=== PATIENT | female | born 1985 | race African-American/Black ===

== ENCOUNTER 2017-08-07 08:42 | Outpatient (CLI) | payer OTHER ==
[2017-08-07] MEDS ORDERED: ONDANSETRON 4 MG/2 ML VIAL IVP STA (09:15)
[2017-08-07] MEDS ORDERED: LACTATED RINGERS 1,000 ML IV SCH (09:15)
[2017-08-07 09:33] LABS: Appearance,Urine Cloudy (Clear); Bilirubin,Urine Negative (Negative); Blood,Urine Negative (Negative); Color,Urine Yellow; Glucose,Urine (UA) Negative (Negative); Hyaline Casts,Urine 5 /lpf (0-2); Ketones,Urine Negative (Negative); Leukocyte Esterase,Urine Negative (Negative); Mucus,Urine Moderate /hpf; Nitrite,Urine Negative (Negative); PH, Urine 5.5 (5.0-8.0); Protein,Urine Trace (Negative); Specific Gravity,Urine 1.022 (1.001-1.035); Squamous Epithelial Cell,Urine 2 /hpf (0-4); Urobilinogen,Urine <2.0 mg/dL (<2.0); WBC,Urine 7 /hpf (0-5)
[2017-08-07 09:47] VITALS: BP 122/70; PULSE 94; RESP 16; TEMP 98.7
--- NOTE | 2017-08-08 22:23 | P.MSEPDOC ---
Presenting Problems - Arrival Data Date of Arrival on Unit: 08/07/17 Time of Arrival on Unit: 08:45 Mode of Transport: Wheelchair - Complaint OB-Reason for Admission/Chief Complaint: Acute Nausea/Vomiting Medical History - Information : 4 Para: 3 Term: 3 : 0 Abortions: Spontaneous or Elective: 0 Number of Living Children: 3 - Gestational Age Gestational Age by EROS (wks/days): 19 Weeks and 6 Days - History Complications: Prior Review of Systems - Review of Systems Constitutional: No problems Breast: No problems ENT: Nasal congestion Respiratory: No problems Gastrointestinal: Constipation Genitourinary: No problems Musculoskeletal: No problems Neurological: No problems Skin: No problems Comment: Born with a heart mumur Vital Signs - Temperature Temperature: 98.7 F Temperature Source: Oral - Pulse Pulse Oximetery Pulse Rate: 94 Pulse Assessment Method: Automatic Cuff - Respirations Respiratory Rate: 16 Oxygen Delivery Method: Room Air - Blood Pressure Right Arm Blood Pressure: 122/70 Blood Pressure Mean: 87 Blood Pressure Source: Automatic Cuff Medical Screen Scoring (Pre) - Cervical Exam Dilation: Exam Deferred Effacement: Exam Deferred - Uterine Contractions Frequency: N/A Duration: N/A Intensity: N/A - Maternal Vital Signs Maternal Temperature: N/A Maternal Blood Pressure: N/A Signs of Preeclampsia: N/A Maternal Respirations: N/A - Pain Assessment Pain Location and Character: Abdomen Pain Scale Used: Numeric (1 - 10) Pain Intensity: 4 Pain Management Goal: 0 Pain Description: *Acute, Cramping Pain Radiation Location: none Pain Frequency: Intermittent Pain Duration: 1 Pain Duration Units: Days Pain Behavior: None Exhibited, Vocalization Pain Aggravating Factors: None - Maternal Trauma Maternal Trauma: N/A - Total Score Total Score (Pre): 0 - Level of Risk Level of Risk: Low (0-5) Physician Notification (Pre) - Physician Notified Physician Notified Date: 08/07/17 Physician Notified Time: 09:13 Physician/Practitioner Notifed:: Dr Qiu New Order Received: Yes - Notification Comment Comment: IV hydration, UA, Zofran Disposition - Disposition OB Disposition: Discharge to home Discharge Date: 08/07/17 Discharge Time: 10:16 I agree with the RN Medical Screening Exam: Yes Risk & Benefit of care provided described in d/c instruction: Yes Diagnosis: DEHYDRATION
== END 2017-08-07 10:30 | disposition home or self-care (01) ==
LOC: FBPOP 08:42
PROVIDERS: ATTEND Obstetrics & Gynecology
DX: O26.892 Other specified pregnancy related conditions, second trimester (principal); E86.0 Dehydration; Z3A.19 19 weeks gestation of pregnancy
CPT/HCPCS: 96361; 96365; 81001; J2405; G0463; 99214

== ENCOUNTER 2017-09-08 13:35 | Outpatient (CLI) | payer OTHER ==
[2017-09-08 14:31] LABS: Appearance,Urine Clear (Clear); Bilirubin,Urine Negative (Negative); Blood,Urine Negative (Negative); Color,Urine Light Yellow; Glucose,Urine (UA) Negative (Negative); Ketones,Urine Negative (Negative); Leukocyte Esterase,Urine Small (Negative); Nitrite,Urine Negative (Negative); PH, Urine 7.5 (5.0-8.0); Protein,Urine Negative (Negative); RBC,Urine <1 /hpf (0-5); Specific Gravity,Urine 1.012 (1.001-1.035); Squamous Epithelial Cell,Urine <1 /hpf (0-4); Urobilinogen,Urine <2.0 mg/dL (<2.0); WBC,Urine <1 /hpf (0-5)
[2017-09-08 19:20] VITALS: BP 133/79; PULSE 81; RESP 20; TEMP 98.4
--- NOTE | 2017-09-09 08:30 | P.MSEPDOC ---
Presenting Problems - Arrival Data Date of Arrival on Unit: 09/08/17 Time of Arrival on Unit: 13:40 Mode of Transport: Wheelchair - Complaint OB-Reason for Admission/Chief Complaint: Possible Onset of Labor, Pain Comment: pt reports cramping/contractions that began 2 hours ago. rates 10/10. also states she has had leaking/discharge, vaginal pressure. Medical History - Information : 4 Para: 3 Term: 3 : 0 Abortions: Spontaneous or Elective: 0 Number of Living Children: 3 - Gestational Age Gestational Age by EROS (wks/days): 24 Weeks and 3 Days - History Complications: Prior Review of Systems - Review of Systems Constitutional: No problems Breast: No problems ENT: No problems Cardiovascular: No problems Respiratory: No problems Gastrointestinal: No problems Genitourinary: Dysuria Musculoskeletal: No problems Neurological: No problems Skin: No problems Vital Signs - Temperature Temperature: 98.4 F Temperature Source: Oral - Pulse Right Brachial Pulse Rate: 81 Pulse Assessment Method: Automatic Cuff - Respirations Respiratory Rate: 20 Oxygen Delivery Method: Room Air O2 Sat by Pulse Oximetry: 99 - Blood Pressure Right Arm Blood Pressure: 133/79 Blood Pressure Mean: 97 Blood Pressure Source: Automatic Cuff Medical Screen Scoring (Pre) - Cervical Exam Dilation: 0 cm = 0 Membranes: Intact - Uterine Contractions Frequency: N/A - Maternal Vital Signs Maternal Temperature: N/A Maternal Blood Pressure: N/A Signs of Preeclampsia: N/A Maternal Respirations: N/A - Pain Assessment Pain Location and Character: Abdomen Pain Scale Used: Numeric (1 - 10) Pain Intensity: 10 Pain Management Goal: 2 Pain Description: *Acute, Cramping Pain Radiation Location: none Pain Frequency: Intermittent Pain Duration: 2 Pain Duration Units: Hours Pain Behavior: Vocalization Effects of Pain: none Pain Aggravating Factors: None Pharmacological Interventions: Discuss Pain Med Options Non-Pharmacological Interventions: Reduce Environmental Stimuli - Maternal Trauma Maternal Trauma: N/A - Assessment Baseline FHR: 140 Heart Rate - NICHD Category: Category I (Normal) = 0 Position: N/A Station: N/A - Total Score Total Score (Pre): 0 - Level of Risk Level of Risk: Low (0-5) Physician Notification (Pre) - Physician Notified Spoke With: isabel Nichols Order Received: Yes - Notification Comment Comment: discharge home. to keep next sched appt. tylenol for pain. increase fluids. watch diet for diarrhea symptoms Medical Screen Scoring (Post) - Cervical Exam Dilation: 0 cm = 0 Effacement: More than 50% = 2 Membranes: Intact - Uterine Contractions Frequency: N/A - Maternal Vital Signs Maternal Temperature: N/A Signs of Preeclampsia: N/A Maternal Respirations: N/A - Pain Assessment Pain Location and Character: Lower, Abdomen, Buttock Pain Scale Used: Numeric (1 - 10) Pain Description: *Acute Pain Frequency: Intermittent Pain Duration Units: unable to determine but states frequently Pain Behavior: Anxious, Crying Pain Aggravating Factors: Activity Non-Pharmacological Interventions: Darkened Room, Position/Reposition FLACC Face: Occassnl Grimac/Frown = 1 FLACC Legs: Relaxed = 0 FLACC Activity: Lying Quietly = 0 FLACC Cry: Moans or Whimpers = 1 FLACC Consolability: Reassured by Touch = 1 FLACC Pain Score: 3 - Maternal Trauma Maternal Trauma: N/A - Assessment Heart Rate: 145 Heart Rate - NICHD Category: Category I (Normal) = 0 Position: N/A - Total Score Total Score (Post): 2 - Post Treatment Level of Risk Post Treatment Level of Risk: Low (0-5) Physician Notification (Post) - Physician Notified Physician Notified Date: 09/08/17 Physician Notified Time: 15:35 Physician/Practitioner Notified:: isabel Nichols Order Received: Yes - Notification Comment Comment: discharge Disposition - Disposition OB Disposition: Discharge to home Discharge Date: 09/08/17 Discharge Time: 15:55 I agree with the RN Medical Screening Exam: Yes Risk & Benefit of care provided described in d/c instruction: Yes Diagnosis: FALSE LABOR BEFORE 37 COMPLETED WEEKS OF GEST, SECOND TRI
== END 2017-09-08 15:59 | disposition home or self-care (01) ==
LOC: FBPOP 13:35
PROVIDERS: ATTEND Obstetrics & Gynecology
DX: O47.02 False labor before 37 completed weeks of gestation, second trimester (principal); Z3A.24 24 weeks gestation of pregnancy
CPT/HCPCS: 82731; 81001; G0463; 99213

== ENCOUNTER 2017-09-16 12:04 | Outpatient (CLI) | payer OTHER ==
[2017-09-16 12:15] VITALS: BP 138/76; TEMP 97.9
[2017-09-16 12:52] VITALS: PULSE 80; RESP 17
--- NOTE | 2017-09-19 08:25 | P.MSEPDOC ---
Presenting Problems - Arrival Data Date of Arrival on Unit: 09/16/17 Time of Arrival on Unit: 12:04 Mode of Transport: Wheelchair - Complaint OB-Reason for Admission/Chief Complaint: Pain Comment: pt moved crib and injured right upper to mid back, rates pain 10/10, pt felt a "pop" when incident occured, pt denies lof/vb/contractions, pt denies hitting abd and reports + fm Medical History - Information : 4 Para: 3 Term: 3 : 0 Abortions: Spontaneous or Elective: 0 Number of Living Children: 3 - Gestational Age Gestational Age by EROS (wks/days): 25 Weeks and 4 Days Review of Systems - Review of Systems Constitutional: No problems Breast: No problems ENT: No problems Cardiovascular: No problems Respiratory: No problems Gastrointestinal: No problems Genitourinary: No problems Musculoskeletal: No problems Neurological: No problems Skin: No problems Vital Signs - Temperature Temperature: 97.9 F Temperature Source: Oral - Pulse Right Brachial Pulse Rate: 80 Pulse Assessment Method: Automatic Cuff - Respirations Respiratory Rate: 17 Oxygen Delivery Method: Room Air O2 Sat by Pulse Oximetry: 99 - Blood Pressure Right Arm Blood Pressure: 138/76 Blood Pressure Mean: 96 Blood Pressure Source: Automatic Cuff Medical Screen Scoring (Pre) - Cervical Exam Dilation: Exam Deferred Effacement: Exam Deferred Membranes: Intact - Uterine Contractions Frequency: N/A Duration: N/A Intensity: N/A - Maternal Vital Signs Maternal Temperature: N/A Maternal Blood Pressure: N/A Signs of Preeclampsia: N/A Maternal Respirations: N/A - Pain Assessment Pain Location and Character: Right, Upper, Back Pain Scale Used: Numeric (1 - 10) Pain Intensity: 10 Pain Management Goal: 2 Pain Description: *Acute, Aching, Tightness Pain Radiation Location: none Pain Frequency: Intermittent Pain Duration: 30 Pain Duration Units: Minutes Pain Behavior: Decreased Activity, Facial Grimacing, Guarding Pain Aggravating Factors: Activity - Maternal Trauma Maternal Trauma: N/A - Assessment Baseline FHR: 150 Position: N/A Station: N/A - Total Score Total Score (Pre): 0 - Level of Risk Level of Risk: Low (0-5) Physician Notification (Pre) - Physician Notified Physician Notified Date: 09/16/17 Physician Notified Time: 12:40 Physician/Practitioner Notifed:: Dr Lemus Spoke With: Dr Lemus New Order Received: Yes (dc to ER) - Notification Comment Comment: pt was dcd from [facility] and transferred via wheelchair to er for assessment of back injury Disposition - Disposition Discharge Date: 09/16/17 Discharge Time: 12:40 I agree with the RN Medical Screening Exam: Yes Risk & Benefit of care provided described in d/c instruction: Yes Diagnosis: INJ MUSCLE, FASCIA AND TENDON OF LOWER BACK, INIT ENCNTR
== END 2017-09-16 12:40 | disposition home or self-care (01) ==
LOC: FBPOP 12:04
PROVIDERS: ATTEND Obstetrics & Gynecology
DX: S39.002A Unspecified injury of muscle, fascia and tendon of lower back, initial encounter (principal); X50.0XXA Overexertion from strenuous movement or load, initial encounter; Y92.009 Unspecified place in unspecified non-institutional (private) residence as the place of occurrence of the external cause; Z33.1 Pregnant state, incidental; Z3A.25 25 weeks gestation of pregnancy
CPT/HCPCS: 99213

== ENCOUNTER 2017-09-16 12:41 | Emergency (ER) | payer OTHER ==
[2017-09-16 13:02] VITALS: BP 114/74; PULSE 77; RESP 16; TEMP 98
[2017-09-16] MEDS ORDERED: ACETAMINOPHEN TAB 500 MG TAB PO STA (13:31)
--- NOTE | 2017-09-16 13:34 | ED ---
Back Pain HPI - General Chief Complaint: Back Pain/Injury Stated Complaint: back pain,preg cleared Time Seen by Provider: 09/16/17 13:15 Source: patient, RN notes reviewed, old records reviewed Limitations: no limitations - History of Present Illness Initial Comments: Patient is a 32-year-old female currently 25 weeks presents emergency department today with right-sided rib pain after pulling her crib. Patient reports that she pulled a crib and felt a pop. Patient states that she now has pain with range of motion with her right side. Patient states she has no spinal pain. Patient states that she is no difficulty with breathing. She was seen at the [facility] floor and cleared. Patient states she has no abdominal pain. Pain is worse with range of motion of the shoulder. She is on any Tylenol. She states that she'll call first thing about calling EMS for transport because she had a hard time moving. Is her fourth . Her OB /HIGH SPEED PRINTER OPERATOR is Dr. Moctezuma. - Related Data Home Medications Medication Instructions Recorded Confirmed Pnv No.95/Ferrous Fum/Folic AC 1 tab PO DAILY 09/16/17 09/16/17 [ Multivitamin Tablet] Previous Rx's Medication Instructions Recorded Acetaminophen [Tylenol] 500 mg PO Q4-6H PRN #20 tab 09/16/17 Allergies Allergy/AdvReac Type Severity Reaction Status Date / Time No Known Allergies Allergy Verified 09/16/17 13:02 Review of Systems ROS Statement: Those systems with pertinent positive or pertinent negative responses have been documented in the HPI. ROS Other: All systems not noted in ROS Statement are negative. Past Medical History Additional Past Medical History / Comment(s): heart murmur History of Any Multi-Drug Resistant Organisms: None Reported Past Surgical History: Section Past Psychological History: Anxiety, Depression Smoking Status: Never smoker Past Alcohol Use History: None Reported Past Drug Use History: None Reported General Exam - General Exam Comments Initial Comments: this is a 32-year-old female. Alert and oriented. No significant distress. Limitations: no limitations General appearance: alert, in no apparent distress Head exam: Present: atraumatic, normocephalic, normal inspection Eye exam: Present: normal appearance, PERRL, EOMI. Absent: scleral icterus, conjunctival injection, periorbital swelling ENT exam: Present: normal exam, mucous membranes moist Neck exam: Present: normal inspection. Absent: tenderness, meningismus, lymphadenopathy Respiratory exam: Present: normal lung sounds bilaterally. Absent: respiratory distress, wheezes, rales, rhonchi, stridor Cardiovascular Exam: Present: regular rate, normal rhythm, normal heart sounds. Absent: systolic murmur, diastolic murmur, rubs, gallop, clicks GI/Abdominal exam: Present: soft, normal bowel sounds. Absent: distended, tenderness, guarding, rebound, rigid Extremities exam: Present: normal inspection, full ROM, normal capillary refill. Absent: tenderness, pedal edema, joint swelling, calf tenderness Back exam: Present: normal inspection, muscle spasm (Patient has tenderness over the right rib and paraspinal muscles.) Neurological exam: Present: alert, oriented X3, CN II-XII intact Psychiatric exam: Present: normal affect, normal mood Course Vital Signs 09/16/17 13:00 Temperature 98.0 F Pulse Rate 77 Respiratory 16 Rate Blood Pressure 114/74 O2 Sat by Pulse 100 Oximetry Medical Decision Making - Medical Decision Making this Patient is a 32-year-old female presents emergency department today with chief complaint of right-sided rib pain after moving her baby crib.. Patient states that she pulled over the right ribs and is having pain with range of motion. Patient has not any Tylenol. She was ready seen by mother-baby and clear. Patient was informed that the only medication for pain relief and states he can is Tylenol. Patient is 25 weeks . She has no difficulty with breathing. She has no pain over her spine. Patient informed likely pulled muscle. Really no concern for rib fracture or any other major trauma. Patientinformed the risk and benefit of x-ray. I discussed that exposing the babyradiation for this injury likely be necessary. Patient does agree. At this time I discussed that I'll write her Tylenol, she needs to rest and taking Patient said and warm compresses over the area. Patient agrees treatment plan will comply. Return parameters were discussed. Disposition Clinical Impression: Muscle strain of right upper back, 25 weeks gestation of Disposition: HOME SELF-CARE Condition: Good Instructions: Back Pain (ED), Muscle Strain (ED) Additional Instructions: Patient advised alternating between heat and ice over the area that is sore and tender for the next 2 days. Rest, to passive stretching. Take Tylenol for pain. Follow-up with OB or PCP. Return to emergency department if any alarming signs or symptoms occur. Prescriptions: Acetaminophen [Tylenol] 500 mg PO Q4-6H PRN #20 tab PRN Reason: Pain Is patient prescribed a controlled substance at d/c from ED?: No Referrals: None,Stated [Primary Care Provider] - 1-2 days Go Qiu DO [Doctor of Osteopathic Medicine] - 1-2 days Time of Disposition: 13:48
== END 2017-09-16 14:20 | disposition home or self-care (01) ==
LOC: EC 12:41
DX: O9A.212 Injury, poisoning and certain other consequences of external causes complicating pregnancy, second trimester (principal); S29.012A Strain of muscle and tendon of back wall of thorax, initial encounter; Z3A.25 25 weeks gestation of pregnancy; X50.9XXA Other and unspecified overexertion or strenuous movements or postures, initial encounter
CPT/HCPCS: 99283

== ENCOUNTER 2017-12-06 19:23 | Outpatient (CLI) | payer OTHER ==
[2017-12-06 19:55] LABS: Appearance,Urine Clear (Clear); Bilirubin,Urine Negative (Negative); Blood,Urine Negative (Negative); Color,Urine Yellow; Glucose,Urine (UA) Negative (Negative); Ketones,Urine Trace (Negative); Leukocyte Esterase,Urine Negative (Negative); Nitrite,Urine Negative (Negative); PH, Urine 7.5 (5.0-8.0); Protein,Urine Trace (Negative); Specific Gravity,Urine 1.015 (1.001-1.035); Urobilinogen,Urine <2.0 mg/dL (<2.0)
[2017-12-07 00:04] VITALS: BP 136/87; PULSE 96; RESP 18; TEMP 97.4
--- NOTE | 2017-12-16 10:26 | P.MSEPDOC ---
Presenting Problems - Arrival Data Date of Arrival on Unit: 12/06/17 Time of Arrival on Unit: 19:23 Mode of Transport: Wheelchair - Complaint OB-Reason for Admission/Chief Complaint: Possible Onset of Labor, Pain Comment: pt c/o contractions on more regular basis, every 10 min or so, but constant cramping and back pain Medical History - Information : 4 Para: 3 Term: 3 : 0 Abortions: Spontaneous or Elective: 0 Number of Living Children: 3 - Gestational Age Gestational Age by EROS (wks/days): 37 Weeks and 0 Days - History Complications: Prior Review of Systems - Review of Systems Constitutional: No problems Breast: No problems ENT: No problems Cardiovascular: No problems Respiratory: No problems Gastrointestinal: No problems Genitourinary: No problems Musculoskeletal: No problems Neurological: No problems Skin: No problems Vital Signs - Temperature Temperature: 97.4 F Temperature Source: Temporal Artery Scan - Pulse Right Brachial Pulse Rate: 96 - Respirations Respiratory Rate: 18 Oxygen Delivery Method: Room Air O2 Sat by Pulse Oximetry: 100 - Blood Pressure Right Arm Blood Pressure: 136/87 Blood Pressure Mean: 103 Blood Pressure Source: Automatic Cuff Medical Screen Scoring (Pre) - Cervical Exam Dilation: 0 cm = 0 Effacement: Exam Deferred Membranes: Intact - Uterine Contractions Frequency: > 5 minutes apart = 1 Duration: > 40 seconds = 2 Intensity: N/A - Maternal Vital Signs Maternal Temperature: N/A Maternal Blood Pressure: N/A Signs of Preeclampsia: N/A Maternal Respirations: N/A - Pain Assessment Pain Scale Used: Numeric (1 - 10) Pain Intensity: 10 Pain Description: *Acute, Cramping, Pressure Pain Radiation Location: back Pain Frequency: Intermittent Pain Duration: 2 Pain Duration Units: Hours Pain Behavior: Moving Slowly Pain Aggravating Factors: Activity - Maternal Trauma Maternal Trauma: N/A - Assessment Baseline FHR: 130 Heart Rate - NICHD Category: Category I (Normal) = 0 NST: Reactive Position: N/A Station: N/A - Total Score Total Score (Pre): 3 - Level of Risk Level of Risk: Low (0-5) Physician Notification (Pre) - Physician Notified Physician Notified Date: 12/06/17 Physician Notified Time: 20:05 Physician/Practitioner Notifed:: Dr. Baltazar Spoke With: Dr. Baltazar New Order Received: Yes - Notification Comment Comment: discharge pt home Disposition - Disposition OB Disposition: Triage, Discharge to home, Written follow up instructions reviewed Discharge Date: 12/06/17 Discharge Time: 20:30 I agree with the RN Medical Screening Exam: Yes Risk & Benefit of care provided described in d/c instruction: Yes Diagnosis: FALSE LABOR AT OR AFTER 37 COMPLETED WEEKS OF GESTATION
== END 2017-12-06 20:30 | disposition home or self-care (01) ==
LOC: FBPOP 19:23
PROVIDERS: ATTEND Obstetrics & Gynecology
DX: O47.1 False labor at or after 37 completed weeks of gestation (principal); Z3A.37 37 weeks gestation of pregnancy
CPT/HCPCS: 59025; 81003; G0463; 99213

== ENCOUNTER 2017-12-13 06:00 | Inpatient (IN) | payer OTHER ==
[2017-12-13] MEDS ORDERED: ceFAZolin IN SWFI 2 GM/20 ML SYRINGE IVP ONE (11:07)
[2017-12-13] MEDS ORDERED: CITRIC ACID-SODIUM CITRATE 15 ML CUP PO ONE (11:07)
[2017-12-13 11:21] VITALS: BMI 39.7
[2017-12-13] MEDS ORDERED: LACTATED RINGERS 1,000 ML IV ONE (11:30)
[2017-12-13 11:42] LABS: Basophils % (A) 0 %; Eosinophils # (A) 0.1 k/uL (0-0.7); Eosinophils % (A) 1 %; HCT 35.1 % (34.0-46.0); HGB 11.6 gm/dL (11.4-16.0); Lymphocytes # (A) 1.8 k/uL (1.0-4.8); Lymphocytes % (A) 21 %; MCH 28.9 pg (25.0-35.0); MCHC 33.1 g/dL (31.0-37.0); MCV 87.5 fL (80.0-100.0); Mean Platelet Volume 6.6; Monocytes # (A) 0.6 k/uL (0-1.0); Monocytes % (A) 6 %; Neutrophils # (A) 5.9 k/uL (1.3-7.7); Neutrophils % (A) 69 %; Platelet Count 331 k/uL (150-450); RBC 4.01 m/uL (3.80-5.40); RDW 14.2 % (11.5-15.5); WBC 8.6 k/uL (3.8-10.6)
[2017-12-13] MEDS: LACTATED RINGERS 1,000 ML IV SCH ×2 (12:00→19:31)
--- NOTE | 2017-12-13 12:13 | P.HPOB ---
History of Present Illness H&P Date: 12/13/17 Chief Complaint: 38-0/7 weeks, IUGR, borderline oligohydramnios, undesired fertility The patient is a 32-year-old 4 para 3003 admitted at 38-0/7 weeks as established by last menstrual period and confirmed by second trimester ultrasound. She is admitted with a diagnosis of intrauterine growth restriction with growth at the 8th percentile several weeks ago. testing since that time has been reassuring with normal and reactive NSTs as well as amniotic fluid indices and SD ratios. At check in the office yesterday, she was found to have an amniotic fluid index in the range of 7 cm which is borderline at best. Given her degree of discomfort and the diagnosis of IUGR as well as slightly decreased fluid, we have opted to proceed to delivery. She has a history of 3 previous sections and has requested repeat with intraoperative bilateral tubal occlusion using Filshie clips and signed consent to that effect. She therefore is admitted for repeat low transverse section with intraoperative tubal occlusion. Group B strep status is negative. Obstetrical history: 4 para 3003 with 3 previous term sections. Current statistics are listed in history of present illness. EDC of 12/27/2017 was established by last menstrual period and confirmed by ultrasound. Laboratory workup touches blood type of O+ with a negative antibody screen. Rubella status is immune. The remainder of the laboratory workup was within normal limits. One hour Glucola was normal and group B strep status is negative. Gynecologic history: Unremarkable with no history of any infections to include STDs. Review of Systems Review of systems is confined to history of present illness. Past Medical History Additional Past Medical History / Comment(s): heart murmur History of Any Multi-Drug Resistant Organisms: None Reported Past Surgical History: Section Past Anesthesia/Blood Transfusion Reactions: No Reported Reaction Past Psychological History: Anxiety, Depression Smoking Status: Never smoker Past Alcohol Use History: None Reported Past Drug Use History: None Reported Medications and Allergies Home Medications Medication Instructions Recorded Confirmed Type Acetaminophen [Tylenol] 500 mg PO Q4-6H PRN #20 tab 09/16/17 12/06/17 Rx Pnv No.95/Ferrous Fum/Folic AC 1 tab PO DAILY 09/16/17 12/06/17 History [ Multivitamin Tablet] Allergies Allergy/AdvReac Type Severity Reaction Status Date / Time No Known Allergies Allergy Verified 12/06/17 19:30 Exam Vital Signs Temp Pulse Resp BP Pulse Ox 12/13/17 11:06 98.1 F 88 18 128/73 100 Intake and Output 12/12/17 12/13/17 12/13/17 22:59 06:59 14:59 Other: Weight 108.409 kg In general, this is a well-developed, mild to moderately obese female in no acute distress. Her heart has a regular rhythm and rate without murmur. Her lungs are clear to auscultation bilaterally in all choudhary. Her abdomen is gravid, nondistended, has normal active bowel sounds, is soft, nontender, and without any palpable masses aside from uterine fundus. Her extremities are without any cyanosis, clubbing, or edema and are nontender to palpation. Digital cervical examination is deferred. Results Result Diagrams: 12/13/17 10:45 Assessment and Plan (1) Oligohydramnios Current Visit: Yes Status: Acute Code(s): O41.00X0 - OLIGOHYDRAMNIOS, UNSP TRIMESTER, NOT APPLICABLE OR UNSP SNOMED Code(s): 43538496 (2) Intrauterine growth retardation in Current Visit: Yes Status: Acute Code(s): O36.5990 - MATERN CARE FOR OTH OR SUSP POOR FETL GRTH, UNSP TRI, UNSP SNOMED Code(s): 812020733 (3) Family planning Current Visit: Yes Status: Acute Code(s): Z30.09 - ENCOUNTER FOR OTH GENERAL CNSL AND ADVICE ON CONTRACEPTION SNOMED Code(s): 716112746 (4) Previous section Current Visit: Yes Status: Acute Code(s): Z98.891 - HISTORY OF UTERINE SCAR FROM PREVIOUS SURGERY SNOMED Code(s): 027287606 (5) Term Current Visit: Yes Status: Acute Code(s): Z34.80 - ENCOUNTER FOR SUPRVSN OF NORMAL , UNSP TRIMESTER SNOMED Code(s): 42837547 Plan: The patient is admitted for repeat low transverse section with intraoperative bilateral tubal occlusion using Filshie clips. The risks and complications of these procedures have been thoroughly discussed and she has understood and agreed to proceed.
[2017-12-13] MEDS ORDERED: HYDROmorphone (PF) 1 MG/ML ONE (12:17)
[2017-12-13] MEDS ORDERED: ONDANSETRON 4 MG/2 ML VIAL ONE (12:17)
[2017-12-13] MEDS ORDERED: NALBUPHINE 10 MG/ML VIAL (10ML MDV) ONE (12:17)
[2017-12-13] MEDS ORDERED: OXYTOCIN 10 UNIT/ML 1 ML VIAL ONE (12:17)
[2017-12-13] MEDS ORDERED: DEXAMETHASONE SOD PHOS (MDV) 100 MG/10 ML VIAL ONE (12:17)
[2017-12-13] MEDS ORDERED: MORPHINE SULFATE (PF) 0.3 MG/0.3 ML SYR ONE (12:17)
[2017-12-13] MEDS ORDERED: HYDROcodone/APAP 5-325MG 1 EACH TAB PO PRN (13:09)
[2017-12-13] MEDS ORDERED: ACETAMINOPHEN TAB 325 MG TAB PO PRN (13:09)
[2017-12-13] MEDS ORDERED: ONDANSETRON 4 MG/2 ML VIAL IVP PRN (13:09)
[2017-12-13] MEDS ORDERED: METOCLOPRAMIDE 5 MG/ML 2 ML VIAL IVP PRN (13:09)
[2017-12-13] MEDS ORDERED: diphenhydrAMINE 50 MG/ML 1 ML VIAL IVP PRN ×2 (13:09)
[2017-12-13] MEDS ORDERED: LANOLIN CREAM 5 GM TUBE TOPICAL PRN (13:09)
[2017-12-13] MEDS ORDERED: NALOXONE 0.4 MG/ML 1 ML VIAL IV PRN (13:09)
[2017-12-13] MEDS ORDERED: diphenhydrAMINE 25 MG CAP PO PRN (13:09)
[2017-12-13] MEDS ORDERED: OXYTOCIN 20 UNITS/1000 ML NS 1,000 ML IV SCH (13:15)
--- NOTE | 2017-12-13 13:18 | P.OP ---
Date of Procedure: 12/13/17 Preoperative Diagnosis: #1. Previous section 3, requesting repeat #2. Undesired fertility # 3. 38-0/7 weeks #4. IUGR #5. Mild oligohydramnios Postoperative Diagnosis: Same plus #6. Fibroid uterus Procedure(s) Performed: #1. Repeat low transverse section #2. Intraoperative bilateral tubal occlusion with Filshie clips Anesthesia: spinal Surgeon: Venkat Baltazar Energy Manager #1: Lupis Fernandes Estimated Blood Loss (ml): 250 IV fluids (ml): 800 Urine output (ml): 500 Pathology: other (Placenta) Condition: stable Disposition: PACU Operative Findings: The patient was taken the operating room where she was found to have a moderate amount of fascial scarring with the omentum occupying the midline and attached the anterior abdominal wall but not to the uterus. The uterus itself had minimal the scarring or adhesive disease. There was a slightly irregular 2-3 cm subserosal anterior fundal fibroid. The uterus, tubes, and ovaries were otherwise normal to inspection. Filshie clip was placed across the isthmic portion of both tubes at approximately 2-3 cm from the cornu on each side. The placenta was delivered manually, intact, and grossly normal with a grossly normal three-vessel cord. The patient was delivered of a viable 5 lbs. 15 oz. baby boy with Apgars of 8 at 1 minute and 9 at 5 minutes. Description of Procedure: The patient was prepped and draped in usual fashion after spinal anesthesia was administered by the anesthesiologist. A Pfannenstiel incision was made through pre-existing scar and extended into the abdominal cavity with minimal difficulty though there was a moderate amount of scarring at the level of the fascia and the omentum was discovered immediately beneath the fascia scar to the anterior abdominal wall in the midline between the rectus muscles. The omentum was removed and divided sharply in order to create an opening large enough to deliver the infant. The bladder peritoneum was noted to be significantly distal to the site of the incision was left intact. A 2 cm incision was made in the transverse plane of the lower uterine segment to enter the uterus at which time clear fluid was noted. The incision was extended in both directions using the bandage scissors as well as blunt dissection. The head was delivered up and through the wound where the nose and mouth were thoroughly suctioned. The remainder of the infant was delivered onto the field where the cord was doubly clamped, cut, and the infant passed resuscitative measures with weight and Apgars as noted above. A segment of cord was doubly clamped, cut, and set aside should cord gases become necessary. The placenta was delivered manually and intact as noted above. The uterus was exteriorized and the interior cavity of uterus swept of any remaining placental or membranous fragments. The margins of the incision were grasped with Mchugh clamps and the incision was closed in a single running locking stitch of 0 chromic catgut proceeding from margin to margin. Hemostasis appeared to be excellent. The posterior cul-de-sac was suctioned using a guard. The the patient reaffirmed her desire for tubal ligation and a Filshie clip was placed across the isthmic portion of each fallopian tube approximately 2-3 cm from the cornu where it was firmly affixed. Uterus was replaced within the abdominal cavity and the gutters were swept of any remaining blood, fluid, or clot. The incision was reexamined and found to be hemostatic. The parietal peritoneum and muscles were loosely reapproximated. Any points of bleeding on the muscles and the omentum in the midline were made hemostatic with the Bovie. Once hemostasis was established, the fascia was closed with 2 running stitches of 0 Vicryl proceeding from the lateral margins to the midpoint. Subcutaneous tissues were irrigated, made hemostatic with the Bovie, and reapproximated with a running stitch of 30 plain catgut. The skin was reapproximated with a running subcuticular stitch of 4-0 Vicryl from margin to margin followed by half -inch Steri-Strips placed with Mastisol. Estimated blood loss for the case is approximately 250 mL. There were no complications. All sponge, instrument, and needle counts were correct. The patient tolerated the procedure well and proceeded to the recovery room in stable condition. Both mother and infant are resting comfortably in recovery.
[2017-12-13] MEDS: KETOROLAC 30 MG/ML 1 ML VIAL IVP PRN (16:39)
[2017-12-13] MEDS: diphenhydrAMINE 50 MG CAP PO PRN (22:36)
[2017-12-14] MEDS: SENNOSIDES-DOCUSATE SODIUM 1 EACH TAB PO SCH ×3 (00:55→23:13)
[2017-12-14] MEDS: SIMETHICONE 80 MG CHEWABLE PO PRN ×2 (02:53→16:30)
[2017-12-14 07:05] LABS: Basophils % (A) 0 %; Eosinophils % (A) 0 %; HCT 31.3 % (34.0-46.0); HGB 10.2 gm/dL (11.4-16.0); Lymphocytes # (A) 1.5 k/uL (1.0-4.8); Lymphocytes % (A) 10 %; MCHC 32.7 g/dL (31.0-37.0); MCV 88.6 fL (80.0-100.0); Mean Platelet Volume 7.5; Monocytes # (A) 0.7 k/uL (0-1.0); Monocytes % (A) 5 %; Neutrophils % (A) 84 %; Platelet Count 289 k/uL (150-450); RBC 3.53 m/uL (3.80-5.40); RDW 14.2 % (11.5-15.5); WBC 14.3 k/uL (3.8-10.6)
[2017-12-14] MEDS: HYDROcodone/APAP 7.5-325MG 1 EACH TAB PO PRN ×2 (08:17→16:29)
--- NOTE | 2017-12-14 08:44 | P.PNOBGPC ---
Subjective - Subjective Patient reports: Reports appetite normal, Reports voiding normally, Reports pain well controlled, Reports ambulating normally : doing well Objective - Vital Signs Latest vital signs: Vital Signs Temp Pulse Resp BP Pulse Ox 12/14/17 04:00 80 16 123/72 12/14/17 00:00 89 16 109/51 12/13/17 20:00 98 F 74 16 115/53 12/13/17 16:00 97.6 F 69 18 119/59 12/13/17 15:08 98.4 F 58 L 18 113/58 100 12/13/17 14:40 98.4 F 58 L 16 106/54 100 12/13/17 14:10 62 16 105/51 100 12/13/17 13:55 58 L 18 99/54 100 12/13/17 13:40 98.4 F 69 16 104/51 100 12/13/17 13:25 64 16 101/58 100 12/13/17 13:10 98.4 F 68 18 103/55 100 12/13/17 11:06 98.1 F 88 18 128/73 100 Intake and Output 12/13/17 12/14/17 12/14/17 22:59 06:59 14:59 Intake Total 25 Output Total 1250 400 Balance -1225 -400 Intake: Oral 25 Output: Urine 850 400 Emesis 150 Estimated Blood Loss 250 Other: # Voids 0 - Exam Extremities: Present: normal Abdomen: Present: normal appearance, soft. Absent: distention, tenderness Incision: Present: normal, dry, intact Uterus: Present: normal, firm (The uterine fundus as tonic and nontender below the umbilicus.) - Labs Labs: Abnormal Lab Results - Last 24 Hours (Table) 12/14/17 Range/Units 06:17 WBC 14.3 H (3.8-10.6) k/uL RBC 3.53 L (3.80-5.40) m/uL Hgb 10.2 L (11.4-16.0) gm/dL Hct 31.3 L (34.0-46.0) % Neutrophils # 12.0 H (1.3-7.7) k/uL Assessment and Plan (1) Oligohydramnios Current Visit: Yes Status: Acute Code(s): O41.00X0 - OLIGOHYDRAMNIOS, UNSP TRIMESTER, NOT APPLICABLE OR UNSP SNOMED Code(s): 72234671 (2) Intrauterine growth retardation in Current Visit: Yes Status: Acute Code(s): O36.5990 - MATERN CARE FOR OTH OR SUSP POOR FETL GRTH, UNSP TRI, UNSP SNOMED Code(s): 717704826 (3) Family planning Current Visit: Yes Status: Acute Code(s): Z30.09 - ENCOUNTER FOR OTH GENERAL CNSL AND ADVICE ON CONTRACEPTION SNOMED Code(s): 442595917 (4) Previous section Current Visit: Yes Status: Acute Code(s): Z98.891 - HISTORY OF UTERINE SCAR FROM PREVIOUS SURGERY SNOMED Code(s): 250852355 (5) Term Current Visit: Yes Status: Acute Code(s): Z34.80 - ENCOUNTER FOR SUPRVSN OF NORMAL , UNSP TRIMESTER SNOMED Code(s): 87397025 (6) Status post section Current Visit: Yes Status: Acute Code(s): Z98.891 - HISTORY OF UTERINE SCAR FROM PREVIOUS SURGERY SNOMED Code(s): 489056424 Plan: Continue routine postoperative care. I have encouraged the patient to ambulate in the halls routinely. Possible discharge home tomorrow pending no complications.
[2017-12-14] MEDS: KETOROLAC 30 MG/ML 1 ML VIAL IVP PRN (11:25)
--- NOTE | 2017-12-14 13:14 | P.PN ---
Progress Note - Text Anesthesia POD 1. Patient is status post section under spinal anesthesia with intra-thecal preservative free morphine 300 g. Moderate pruritus, good post-op analgesia, and no headache or other complications.
[2017-12-14] MEDS: ZOLPIDEM 5 MG TAB PO PRN (20:53)
[2017-12-14] MEDS: IBUPROFEN 600 MG TAB PO PRN (21:09)
[2017-12-14] MEDS: LACTATED RINGERS 1,000 ML IV SCH ×5 (22:15→23:16)
[2017-12-15] MEDS: HYDROcodone/APAP 7.5-325MG 1 EACH TAB PO PRN ×4 (00:04→17:37)
[2017-12-15] MEDS: diphenhydrAMINE 50 MG CAP PO PRN (01:55)
[2017-12-15] MEDS: IBUPROFEN 600 MG TAB PO PRN ×4 (03:27→22:14)
[2017-12-15] MEDS: SENNOSIDES-DOCUSATE SODIUM 1 EACH TAB PO SCH ×2 (07:40→20:00)
[2017-12-15] MEDS: SIMETHICONE 80 MG CHEWABLE PO PRN ×2 (07:40→20:00)
--- NOTE | 2017-12-15 08:43 | P.PNOBGPC ---
Subjective - Subjective Patient reports: Reports appetite normal, Reports voiding normally, Reports pain poorly controlled (Patient reports significantly increased pain since Duramorph wore off yesterday.), Reports ambulating normally : doing well Objective - Vital Signs Latest vital signs: Vital Signs Temp Pulse Resp BP Pulse Ox 12/15/17 07:40 98.1 F 79 16 110/69 12/15/17 00:00 98.3 F 77 16 112/75 98 12/14/17 16:00 98.2 F 83 16 119/69 12/14/17 15:47 98.2 F 83 16 119/69 12/14/17 11:59 98.2 F 74 16 121/67 12/14/17 09:00 98.6 F 78 16 132/78 Intake and Output 12/14/17 12/15/17 12/15/17 22:59 06:59 14:59 Intake Total 1600 500 Balance 1600 500 Intake: Oral 1600 500 Other: # Voids 1 # Bowel Movements 1 - Exam Extremities: Present: normal Abdomen: Present: normal appearance, soft. Absent: distention, tenderness Incision: Present: normal, dry, intact Uterus: Present: normal, firm (Uterine fundus as tonic and moderately tender below the umbilicus.) Assessment and Plan (1) Oligohydramnios Current Visit: Yes Status: Acute Code(s): O41.00X0 - OLIGOHYDRAMNIOS, UNSP TRIMESTER, NOT APPLICABLE OR UNSP SNOMED Code(s): 75348431 (2) Intrauterine growth retardation in Current Visit: Yes Status: Acute Code(s): O36.5990 - MATERN CARE FOR OTH OR SUSP POOR FETL GRTH, UNSP TRI, UNSP SNOMED Code(s): 399829224 (3) Family planning Current Visit: Yes Status: Acute Code(s): Z30.09 - ENCOUNTER FOR OTH GENERAL CNSL AND ADVICE ON CONTRACEPTION SNOMED Code(s): 330217873 (4) Previous section Current Visit: Yes Status: Acute Code(s): Z98.891 - HISTORY OF UTERINE SCAR FROM PREVIOUS SURGERY SNOMED Code(s): 382279908 (5) Term Current Visit: Yes Status: Acute Code(s): Z34.80 - ENCOUNTER FOR SUPRVSN OF NORMAL , UNSP TRIMESTER SNOMED Code(s): 30287768 (6) Status post section Current Visit: Yes Status: Acute Code(s): Z98.891 - HISTORY OF UTERINE SCAR FROM PREVIOUS SURGERY SNOMED Code(s): 480396727 Plan: Continue routine postoperative care. She will remain in the hospital secondary to her increased level of pain until well controlled with oral pain medications. Likely discharge home tomorrow.
[2017-12-15] MEDS: ZOLPIDEM 5 MG TAB PO PRN (21:26)
[2017-12-15 23:51] VITALS: BP 124/77; PULSE 108; RESP 14; TEMP 98.2
[2017-12-16] MEDS: HYDROcodone/APAP 7.5-325MG 1 EACH TAB PO PRN ×2 (02:13→09:59)
[2017-12-16] MEDS: IBUPROFEN 600 MG TAB PO PRN (06:01)
[2017-12-16] MEDS: SIMETHICONE 80 MG CHEWABLE PO PRN (08:16)
[2017-12-16] MEDS: SENNOSIDES-DOCUSATE SODIUM 1 EACH TAB PO SCH (08:16)
--- NOTE | 2017-12-16 10:02 | P.DS ---
Providers Date of admission: 12/13/17 10:13 Expected date of discharge: 12/16/17 Attending physician: Venkat Baltazar Primary care physician: Stated None - Discharge Diagnosis(es) (1) Oligohydramnios Current Visit: Yes Status: Acute (2) Intrauterine growth retardation in Current Visit: Yes Status: Acute (3) Family planning Current Visit: Yes Status: Acute (4) Previous section Current Visit: Yes Status: Acute (5) Term Current Visit: Yes Status: Acute (6) Status post section Current Visit: Yes Status: Acute Hospital Course: The patient is a 32-year-old 4 para 3003 admitted at 38-0/7 weeks by good dating parameters. She is admitted with a known diagnosis of intrauterine growth restriction with the fetus at the 8th percentile growth. testing had been reassuring, however she was found to have borderline oligohydramnios in the office and was therefore admitted for repeat low transverse section and intraoperative bilateral tubal occlusion with Filshie clips. She had signed consent to that effect in the office. She was taken the operating room where she was delivered of a viable 5 lbs. 15 oz. baby boy with Apgars of 8 at 1 minute and 9 at 5 minutes. Her postoperative course was essentially unremarkable with vital signs remaining stable and her temperature was afebrile throughout. She did have some moderate discomfort on postoperative day #2 and opted to remain in the hospital for pain control. This had significantly improved by the morning of postoperative day #3 and she was deemed stable for discharge. She therefore was discharged home to follow- up in the office in 2 weeks for an incision check and 6 weeks routinely. Discharge instructions included calling for any significantly increased fever or abdominal pain, perineal complaints, breast complaints, incisional complaints , significantly increased bleeding or foul-smelling lochia, or anything else that concerned her. She was additionally instructed to have nothing in vagina for at least 6 weeks time to include intercourse. She was last instructed to do no driving until off of all pain medications or 2 weeks' time, whichever came first. She understood her instructions and agrees to follow up as noted above. Discharge medications included continued vitamins as she is intending to breast-feed for at least the next week or 2. She additionally was provided with a prescription for Crapo 7.5/325 mg, 1-2 by mouth every 6 hours when necessary pain, #20 dispensed with no refills. Maternal blood type is O+ and rubella status is immune. Discharge hemoglobin and hematocrit were 10.2 and 31.3 respectively. Procedures: #1. Repeat low transverse section #2. Intraoperative bilateral tubal occlusion with Filshie clips Patient Condition at Discharge: Stable Plan - Discharge Summary New Discharge Prescriptions: No Action Pnv No.95/Ferrous Fum/Folic AC [ Multivitamin Tablet] 1 tab PO DAILY Acetaminophen [Tylenol] 500 mg PO Q4-6H PRN #20 tab PRN Reason: Pain Discharge Medication List Acetaminophen [Tylenol] 500 mg PO Q4-6H PRN #20 tab 09/16/17 [Rx] Pnv No.95/Ferrous Fum/Folic AC [ Multivitamin Tablet] 1 tab PO DAILY 12/24 [History] Follow up Appointment(s)/Referral(s): Venkat Baltazar MD [STAFF PHYSICIAN] - 2 Weeks Discharge Disposition: HOME SELF-CARE
== END 2017-12-16 12:29 | disposition home or self-care (01) | DRG 784 ==
LOC: 4FBP 10:13
PROVIDERS: ADMIT Obstetrics & Gynecology; ATTEND Obstetrics & Gynecology
PROC: 10D00Z1 Extraction of Products of Conception, Low, Open Approach (ICD-10-PCS; principal; 2017-12-13 12:15)
PROC: 0UL70CZ Occlusion of Bilateral Fallopian Tubes with Extraluminal Device, Open Approach (ICD-10-PCS; principal; 2017-12-13 12:15)
DX: O34.211 Maternal care for low transverse scar from previous cesarean delivery (principal); O41.03X0 Oligohydramnios, third trimester, not applicable or unspecified; O36.5930 Maternal care for other known or suspected poor fetal growth, third trimester, not applicable or unspecified; D25.9 Leiomyoma of uterus, unspecified; O34.13 Maternal care for benign tumor of corpus uteri, third trimester; Z30.2 Encounter for sterilization; Z37.0 Single live birth; Z3A.38 38 weeks gestation of pregnancy
CPT/HCPCS: 85025; 86850; 86900; 86901; 88307

== ENCOUNTER 2018-02-07 12:55 | Emergency (ER) | payer OTHER ==
[2018-02-07 14:26] LABS: Anisocytosis Slight; Basophils % (A) 1 %; Eosinophils # (A) 0.2 k/uL (0-0.7); Eosinophils % (A) 2 %; HCT 37.1 % (34.0-46.0); HGB 12.1 gm/dL (11.4-16.0); Lymphocytes # (A) 1.8 k/uL (1.0-4.8); Lymphocytes % (A) 28 %; MCH 28.8 pg (25.0-35.0); MCHC 32.6 g/dL (31.0-37.0); MCV 88.4 fL (80.0-100.0); Mean Platelet Volume 6.4; Monocytes # (A) 0.5 k/uL (0-1.0); Monocytes % (A) 7 %; Neutrophils # (A) 3.7 k/uL (1.3-7.7); Neutrophils % (A) 58 %; Platelet Count 327 k/uL (150-450); RBC 4.19 m/uL (3.80-5.40); RDW 16.1 % (11.5-15.5); WBC 6.5 k/uL (3.8-10.6)
[2018-02-07 14:41] LABS: Calcium 9.6 mg/dL (8.4-10.2); Potassium 3.9 mmol/L (3.5-5.1); Total Bilirubin 0.6 mg/dL (0.2-1.3); Total Protein 7.4 g/dL (6.3-8.2)
--- NOTE | 2018-02-07 15:02 | XR ---
EXAMINATION TYPE: XR KUB DATE OF EXAM: 02/07/2018 COMPARISON: NONE HISTORY: Pain TECHNIQUE: One view abdominal series FINDINGS: The osseous structures are intact. The bowel gas pattern is nonspecific. Lung bases are clear. Post surgical change in the pelvis noted. Calcifications in the right hemipelvis are too small to characte rize and nonspecific. IMPRESSION: 1. Nonspecific abdomen.
[2018-02-07 15:29] LABS: Appearance,Urine Clear (Clear); Bilirubin,Urine Negative (Negative); Blood,Urine Negative (Negative); Color,Urine Yellow; Glucose,Urine (UA) Negative (Negative); Ketones,Urine Negative (Negative); Leukocyte Esterase,Urine Negative (Negative); Nitrite,Urine Negative (Negative); Protein,Urine Trace (Negative); Specific Gravity,Urine 1.019 (1.001-1.035)
[2018-02-07] MEDS ORDERED: MORPHINE SULFATE 2 MG/ML SYRINGE IVP STA (17:01)
--- NOTE | 2018-02-07 17:17 | US ---
EXAMINATION TYPE: US pelvis complete transvag DATE OF EXAM: 02/07/2018 COMPARISON: US CLINICAL HISTORY: Pain. Low pelvic and inguinal pain x 1 week; urinary frequency; approximately 7 wee ks post with C Section Delivery; TECHNIQUE: Transvaginal (TV) and Transabdominal (TA) . Transabdominal sonographic images of the pel vis were acquired. Transvaginal sonographic images were medically necessary to better assess the fol lowing anatomy: endometrium and ovaries as patient's bladder not prepped. Date of LMP: 10 months ago EXAM MEASUREMENTS: Uterus: 10.5 x 6.3 x 6.0 cm Endometrial Stripe: 1.1 cm TV US Right Ovary: 3.3 x 2.1 x 2.5 cm Left Ovary: 4.3 x 2.6 x 2.4 cm 1. Uterus: Retroverted; couple of uterine fibroids seen with left myometrial fibroid = 1.4 x 1.0 x 0 .6cm and right exophytic fibroid upper right myometrium = 1.4 x 1.5 x 1.0cm. 2. Endometrium: appearance is wnl for 2 months post 3. Right Ovary: multiple small follicles 4. Left Ovary: multifollicular with largest simple follicle = 1.7 x 1.1 x 1.0cm. Spectral, color and waveform doppler imaging shows good arterial and venous flow within the ovaries ; there is no evidence for ovarian torsion. 5. Bilateral Adnexa: wnl 6. Posterior cul-de-sac: wnl IMPRESSION: Negative exam. No evidence of ovarian torsion. Normal endometrium.
[2018-02-07] MEDS ORDERED: MORPHINE SULFATE 2 MG/ML SYRINGE IM STA (17:26)
--- NOTE | 2018-02-07 17:40 | ED ---
Abdominal Pain HPI - General Chief Complaint: Abdominal Pain Stated Complaint: Abd pain, post 6 weeks ago Time Seen by Provider: 02/07/18 15:12 Source: patient Mode of arrival: ambulatory Limitations: no limitations - History of Present Illness Initial Comments: 32-year-old female presenting today 6 weeks , presenting today for lower pelvic pain x weeks. Patient states she has had lower pelvic pain for weeks, she states that increased after intercourse for the first time on . Patient states she did spot 2 days ago however has had no vaginal bleeding since. Patient also notes she has had some constipation with history of hemorrhoid. She states she did notice a small amount of blood in stool with hard bowel movement. Patient denies any upper abdominal pain, redness at the incisional site, fever, chills, nausea, vomiting , chest pain, shortness of breath, lower extremity edema, vaginal discharge or any other associated symptoms. Patient denies any radiation of the pelvic pain. Remainder of ROS negative, upon arrival patient appears well. There are no signs of acute distress. Vital signs within acceptable limits, elevated diastolic BP noted. - Related Data Home Medications Medication Instructions Recorded Confirmed Sertraline [Zoloft] 100 mg PO HS 02/07/18 02/07/18 Allergies Allergy/AdvReac Type Severity Reaction Status Date / Time No Known Allergies Allergy Verified 02/07/18 15:18 Review of Systems ROS Statement: Those systems with pertinent positive or pertinent negative responses have been documented in the HPI. ROS Other: All systems not noted in ROS Statement are negative. Past Medical History Additional Past Medical History / Comment(s): heart murmur History of Any Multi-Drug Resistant Organisms: None Reported Past Surgical History: Section Past Anesthesia/Blood Transfusion Reactions: No Reported Reaction Past Psychological History: Anxiety, Depression Smoking Status: Never smoker Past Alcohol Use History: None Reported Past Drug Use History: None Reported General Exam - General Exam Comments Initial Comments: General: The patient is awake and alert, in no distress, and does not appear acutely ill. Eye: +3 mm pupils are equal, round and reactive to light, extra-ocular movements are intact. No nystagmus. There is normal conjunctiva bilaterally. No signs of icterus. Ears, nose, mouth and throat: There are moist mucous membranes and no oral lesions. Neck: The neck is supple, there is no tenderness or JVD. Cardiovascular: There is a regular rate and rhythm. No murmur, rub or gallop is appreciated. Respiratory: Lungs are clear to auscultation, respirations are non-labored, breath sounds are equal. No wheezes, stridor, rales, or rhonchi. Gastrointestinal: No noted diaphoresis, jaundice, pallor, protecting postures or squirming. Symmetrical pigmentation of abdomen without signs of inflammation. Horizontal C -section scar noted, no evidence of dehiscence, fully healed with no evidence of erythema. Umbilicus mildline, inverted without swelling. No dilated veins. Abdomen contour obese, no noted abdominal distention. No visible masses. No peristalsis, aortic pulsations, or ventral hernia. Bowel sounds audible in all 4 quadrants, unremarkable. No friction rubs or venous hums. No epigastic, hepatic or abdominal bruits. Mild tenderness to deep palpation of the lower pelvic region midline and b/l. Liver edge, not palpable. Spleen edge, right and left kidney not palpable. Special Testing: Negative [place], [place], McBurney, Simeon. Iliopsoas and obturator tests negative bilaterally. Negative Heel Jar test. No CVA tenderness. Digital rectal exam deferred. Negative hong turners or cullens sign Musculoskeletal: Normal ROM, no tenderness. Strength 5/5. Sensation intact. DP and radial pulses equal bilaterally 2+. Neurological: A&O x 3. CN II-XII intact, There are no obvious motor or sensory deficits. Coordination appears grossly intact. Speech is normal. Skin: Skin is warm and dry and no rashes or lesions are noted. No LE edema. Psychiatric: Cooperative, appropriate mood & affect, normal judgment. Pelvic: Normal female hair pattern, shaved. No external lesions. Vulva pink. Vaginal mucosa, well rugated, pink. No evidence of vaginal bleeding. Small amount of thin clear/white non-odorous discharge. No cervical motion tenderness. Os closed retroverted uterus. No adnexal tenderness. No palpable masses. Limitations: no limitations Course Vital Signs 02/07/18 02/07/18 02/07/18 13:32 17:24 18:05 Temperature 98.1 F 97.7 F 97.9 F Pulse Rate 69 65 65 Respiratory 18 15 16 Rate Blood Pressure 133/91 143/91 136/79 O2 Sat by Pulse 100 99 100 Oximetry 02/07/18 18:15 Temperature 98 F Pulse Rate 69 Respiratory 16 Rate Blood Pressure 134/81 O2 Sat by Pulse 98 Oximetry Medical Decision Making - Medical Decision Making Lower pelvic region equally bilaterally mildly tender to palpation, no signs of rigidity or guarding. incision appears healed, no evidence of infection. White blood cell count within normal limits. KUB no evidence of obstruction. HgB Stable. Pelvic ultrasound revealed no acute findings. No right lower quadrant pain or upper abdominal pain. Pelvic exam revealed a small amount of discharge and appeared physiologic. Patient denies any concern for STD however cultures were obtained and pending. At this time there is no overt signs of infection. Patient appears well, nontoxic. Afebrile. Denies fever, chills, rigor. Patient does not appear acutely uncomfortable. 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 Given that this pain has persisted for weeks since feel patient does not have acute abdominal process at this time. Patient be discharged with follow up as scheduled. Patient is agreeable with plan stating she is comfortable with discharge home with outpatient f/u. This case with Dr. Wu who agreed with impression and plan. Pt discharged in stable condition appearing well. - Lab Data Result diagrams: 02/07/18 14:06 02/07/18 14:06 Lab Results 02/07/18 02/07/18 02/07/18 Range/Units 14:06 14:06 15:08 WBC 6.5 (3.8-10.6) k/uL RBC 4.19 (3.80-5.40) m/uL Hgb 12.1 (11.4-16.0) gm/dL Hct 37.1 (34.0-46.0) % MCV 88.4 (80.0-100.0) fL MCH 28.8 (25.0-35.0) pg MCHC 32.6 (31.0-37.0) g/dL RDW 16.1 H (11.5-15.5) % Plt Count 327 (150-450) k/uL Neutrophils % 58 % Lymphocytes % 28 % Monocytes % 7 % Eosinophils % 2 % Basophils % 1 % Neutrophils # 3.7 (1.3-7.7) k/uL Lymphocytes # 1.8 (1.0-4.8) k/uL Monocytes # 0.5 (0-1.0) k/uL Eosinophils # 0.2 (0-0.7) k/uL Basophils # 0.0 (0-0.2) k/uL Anisocytosis Slight Sodium 139 (137-145) mmol/L Potassium 3.9 (3.5-5.1) mmol/L Chloride 106 (98-107) mmol/L Carbon Dioxide 25 (22-30) mmol/L Anion Gap 8 mmol/L BUN 12 (7-17) mg/dL Creatinine 1.12 H (0.52-1.04) mg/dL Est GFR (CKD-EPI)AfAm 75 (>60 ml/min/1.73 sqM) Est GFR (CKD-EPI)NonAf 65 (>60 ml/min/1.73 sqM) Glucose 102 H (74-99) mg/dL Calcium 9.6 (8.4-10.2) mg/dL Total Bilirubin 0.6 (0.2-1.3) mg/dL AST 59 H (14-36) U/L ALT 39 (9-52) U/L Alkaline Phosphatase 88 (38-126) U/L Total Protein 7.4 (6.3-8.2) g/dL Albumin 4.0 (3.5-5.0) g/dL Amylase 64 (30-110) U/L Lipase 64 (23-300) U/L Urine Color Yellow Urine Appearance Clear (Clear) Urine pH 6.0 (5.0-8.0) Ur Specific [place] 1.019 (1.001-1.035) Urine Protein Trace H (Negative) Urine Glucose (UA) Negative (Negative) Urine Ketones Negative (Negative) Urine Blood Negative (Negative) Urine Nitrite Negative (Negative) Urine Bilirubin Negative (Negative) Urine Urobilinogen 2.0 (<2.0) mg/dL Ur Leukocyte Esterase Negative (Negative) Disposition Clinical Impression: Pelvic pain Disposition: HOME SELF-CARE Condition: Good Instructions: Pelvic Pain in Women (ED) Additional Instructions: Please use over the counter medication as discussed. Please follow-up with family doctor in the next 2 days, and OBGYN tomorrow as scheduled with Dr. Baltazar. Please return to emergency room if the symptoms increase or worsen or for any other concerns. Is patient prescribed a controlled substance at d/c from ED?: No Referrals: None,Stated [Primary Care Provider] - 1-2 days Venkat Baltazar MD [STAFF PHYSICIAN] - 1-2 days Time of Disposition: 17:40
[2018-02-07 18:06] VITALS: RESP 16
[2018-02-07 18:16] VITALS: BP 134/81; PULSE 69; TEMP 98
[2018-02-09 15:33] LABS: C. trachomatis,PCR Negative (Neg,Equiv); Chlamydia trachomatis Source Vagina
[2018-02-09 15:36] LABS: N. gonorrhoeae,PCR Negative (Neg,Equiv); Neisseria Source Vagina
== END 2018-02-07 18:15 | disposition home or self-care (01) ==
LOC: EC 12:55
DX: O90.89 Other complications of the puerperium, not elsewhere classified (principal); R10.2 Pelvic and perineal pain; O99.63 Diseases of the digestive system complicating the puerperium; K92.1 Melena; K59.00 Constipation, unspecified; O99.345 Other mental disorders complicating the puerperium; F53.0 Postpartum depression; F41.9 Anxiety disorder, unspecified; Z79.899 Other long term (current) drug therapy; Z98.890 Other specified postprocedural states; Z53.8 Procedure and treatment not carried out for other reasons
CPT/HCPCS: 36415; 80053; 82150; 83690; 85025; 81003; 87808; 87491; 87591; 87070; 87205; 74018; 93975; 76856; 76830; 99284; 96372; J2270

== ENCOUNTER → 2019-01-17 | Outpatient (CLI) | payer OTHER ==
--- NOTE | 2019-01-17 11:19 | MR ---
EXAMINATION TYPE: MR shoulder LT wo con DATE OF EXAM: 01/17/2019 COMPARISON: X-ray 12/16/2018 HISTORY: lt shoulder pain TECHNIQUE: Multiplanar, multisequence imaging of the left shoulder is performed without contrast. FINDINGS: : There is increased fluid surrounding the biceps tendon particularly within the bicipital groove. In tracapsular portion of the biceps tendon demonstrates increased signal suggestive of tendinosis. Spli t tear not excluded. Biceps anchor intact. Findings are suggestive of a SLAP tear. Glenohumeral ligaments are intact and there is a small amount of fluid within the joint space. Hypertrophic change of the AC joint is noted. There is impingement supraspinatus tendon and muscle. I ncreased signal along the critical zone and insertion of the supraspinatus tendon and infraspinatus t endon is compatible with tendinosis. Suprascapular Notch has a normal appearance. No marrow edema or contusion. IMPRESSION: 1. Severe tendinopathy of the biceps tendon with increased intrasubstance signal within the intracaps ular portion of the tendon. Split tear in the differential diagnosis. No through thickness tear or re traction. 2. 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 3. Small glenohumeral joint effusion with findings suspicious for a SLAP tear.
== END | disposition home or self-care (01) ==
LOC: RADMRIMAIN 09:24
PROVIDERS: ATTEND Internal Medicine
DX: M19.012 Primary osteoarthritis, left shoulder (principal); M25.812 Other specified joint disorders, left shoulder; M67.814 Other specified disorders of tendon, left shoulder

== ENCOUNTER → 2019-03-28 | Outpatient (CLI) | payer OTHER ==
--- NOTE | 2019-03-29 13:30 | US ---
EXAMINATION TYPE: US transvaginal DATE OF EXAM: 03/28/2019 COMPARISON: Previous exam 02/07/2018 CLINICAL HISTORY: R10.2 Pelvic and perineal pain. Pain abnormal periods. TECHNIQUE: Transvaginal (TV Date of LMP: 03/18/2019 EXAM MEASUREMENTS: Uterus: 7.6 x 4.7 x 4.1 cm Endometrial Stripe: 1.1 cm Right Ovary: 4.1 x 2.6 x 3.1 cm Left Ovary: 4.1 x 2.0 x 2.6 cm Grayscale and color Doppler imaging performed of the ovaries 1. Uterus: Retroverted Hypoechoic area seen measuring .9 cm. In exophytic location posteriorly may r epresent a small fibroid 2. Endometrium: wnl 3. Right Ovary: Follicles seen largest 1.7 cm 4. Left Ovary: Follicles seen largest 1.6 cm. 5. Bilateral Adnexa: wnl 6. Posterior cul-de-sac: wnl IMPRESSION: Dominant follicle present within the left ovary and right ovary of similar sizes. Possibl e small fibroid as described.
== END ==
LOC: RADUSWWP 16:14
PROVIDERS: ATTEND Obstetrics & Gynecology
DX: R10.2 Pelvic and perineal pain (principal)
CPT/HCPCS: 76830

== ENCOUNTER 2019-11-12 03:14 | Observation (INO) | payer OTHER ==
[2019-11-12] MEDS ORDERED: IBUPROFEN 600 MG TAB PO STA (03:23)
[2019-11-12] MEDS ORDERED: ACETAMINOPHEN TAB 500 MG TAB PO STA (03:23)
--- NOTE | 2019-11-12 03:56 | XR ---
EXAMINATION TYPE: XR chest 1V portable DATE OF EXAM: 11/12/2019 COMPARISON: 07/14/2013 HISTORY: Short of breath TECHNIQUE: Single view. Heart and mediastinum are normal. Lungs are clear. Diaphragm is normal. Bony thorax is intact. IMPRESSION: Normal chest. Heart and lungs unchanged compared to old exam.
[2019-11-12] MEDS: SODIUM CHLORIDE 0.9% 500 ML 500 ML IV SCH ×4 (04:10→04:40)
[2019-11-12] MEDS: SODIUM CHLORIDE 0.9% 1,000 ML IV SCH ×4 (04:20→21:12)
[2019-11-12] MEDS ORDERED: MORPHINE SULFATE 4 MG/ML SYRINGE IVP STA (04:28)
[2019-11-12] MEDS ORDERED: ALBUTEROL NEBULIZED 2.5 MG/3 ML INHALATION STA (04:35)
--- NOTE | 2019-11-12 04:41 | ED ---
URI HPI - General Chief Complaint: Upper Respiratory Infection Stated Complaint: cough,fever Time Seen by Provider: 11/12/19 03:22 Source: patient Mode of arrival: ambulatory Limitations: no limitations - History of Present Illness Initial Comments: Elina is a previously healthy but morbidly obese 34-year-old female who presents the ER today with fever, nonproductive cough, shortness of breath, body aches, headache and concern due to exposure to COVID 19. 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 Patient states she was feeling fine on Monday and Monday began to have some body aches, cough that was nonproductive and fever. Patient reports she took Mucinex with acetaminophen with no improvement in her temperature, she decided to come to the ER for further evaluation. She has not had a flu shot yet this year. - Related Data Home Medications Medication Instructions Recorded Confirmed Sertraline [Zoloft] 100 mg PO HS 02/07/18 02/07/18 Cyclobenzaprine [Flexeril] 10 mg PO BID PRN 11/12/19 11/12/19 Dicyclomine [Bentyl] 10 - 20 mg PO TID PRN 11/12/19 11/12/19 HYDROcodone/APAP 10-325MG [[place] 0.5 - 1 tab PO BID PRN 11/12/19 11/12/19 10-325] Ibuprofen [Motrin] 800 mg PO TID PRN 11/12/19 11/12/19 Phentermine HCl [Adipex-P] 37.5 mg PO DAILY 11/12/19 11/12/19 Promethazine 6.25MG/5Ml [Phenergan 5 - 10 ml PO QID PRN 11/12/19 11/12/19 Syrup] traMADol HCL 25 - 50 mg PO BID PRN 11/12/19 11/12/19 Allergies Allergy/AdvReac Type Severity Reaction Status Date / Time No Known Allergies Allergy Verified 11/12/19 06:35 Review of Systems ROS Statement: Those systems with pertinent positive or pertinent negative responses have been documented in the HPI. ROS Other: All systems not noted in ROS Statement are negative. Past Medical History Additional Past Medical History / Comment(s): heart murmur History of Any Multi-Drug Resistant Organisms: None Reported Past Surgical History: Section Past Anesthesia/Blood Transfusion Reactions: No Reported Reaction Past Psychological History: Anxiety, Depression Smoking Status: Never smoker Past Alcohol Use History: Occasional Past Drug Use History: None Reported General Exam - General Exam Comments Initial Comments: Physical Exam GENERAL: Patient is well-developed and well-nourished. Febrile appears uncomfortable HENT: Normocephalic, Atraumatic. EYES: PERRL, EOMI PULMONARY: Tachypnea CARDIOVASCULAR: Tachycardic regular ABDOMEN: Soft and nontender with normal bowel sounds. SKIN: Hot to the touch and dry No rashes : Deferred NEUROLOGIC: Patient is alert and oriented x3. Moving all extremities spontaneously MUSCULOSKELETAL: Normal extremities with adequate strength and full range of motion. No lower extremity swelling or edema. No calf tenderness. PSYCHIATRIC: Normal psychiatric evaluation. Limitations: no limitations Course Vital Signs 11/12/19 11/12/19 11/12/19 03:16 04:00 04:04 Temperature 104.2 F H Pulse Rate 116 H Respiratory 24 16 Rate Blood Pressure 134/86 O2 Sat by Pulse 98 99 Oximetry 11/12/19 11/12/19 11/12/19 04:20 04:40 04:50 Temperature 102.3 F H Pulse Rate 100 101 H 96 Respiratory 13 34 H 18 Rate Blood Pressure 126/82 129/84 O2 Sat by Pulse 98 99 98 Oximetry 11/12/19 11/12/19 11/12/19 05:00 05:20 05:40 Temperature Pulse Rate 95 95 94 Respiratory 18 18 27 H Rate Blood Pressure 134/81 131/77 111/61 O2 Sat by Pulse 98 94 L 97 Oximetry 11/12/19 11/12/19 06:00 06:12 Temperature 100.4 F H Pulse Rate 91 Respiratory 21 18 Rate Blood Pressure 108/69 O2 Sat by Pulse 98 Oximetry Medical Decision Making - Medical Decision Making Was notified of the patient's arrival in triage and recommended the patient be moved to a negative pressure room due to high risk of COVID 19 A full septic workup as well as labs for possible COVID 19 were obtained Labs were reviewed, white count is normal but there is leukopenia, d-dimer, LDH both elevated Patient's fever improving after a dose of Tylenol, Motrin and a fluid bolus Chest x-ray is unremarkable Computed tomography scan of the chest to evaluate for PE was ordered due to elevated d-dimer and tachycardia CT scan concerning for COVID 19 Given that the patient has lab findings, CT findings concerning for COVID 19, known exposure and is in rhabdo I do feel it safest for her to be admitted to the hospital for IV fluids and continued monitoring. Patient is comfortable with this plan. Patient notified home contacts of the need for quarantine. - Lab Data Result diagrams: 11/12/19 04:05 11/12/19 04:05 Lab Results 11/12/19 11/12/19 11/12/19 Range/Units 04:05 04:05 04:05 WBC 4.5 (3.8-10.6) k/uL RBC 3.84 (3.80-5.40) m/uL Hgb 11.5 (11.4-16.0) gm/dL Hct 33.9 L (34.0-46.0) % MCV 88.4 (80.0-100.0) fL MCH 30.0 (25.0-35.0) pg MCHC 33.9 (31.0-37.0) g/dL RDW 13.3 (11.5-15.5) % Plt Count 264 (150-450) k/uL Neutrophils % 72 % Lymphocytes % 13 % Monocytes % 9 % Eosinophils % 2 % Basophils % 3 % Neutrophils # 3.2 (1.3-7.7) k/uL Lymphocytes # 0.6 L (1.0-4.8) k/uL Monocytes # 0.4 (0-1.0) k/uL Eosinophils # 0.1 (0-0.7) k/uL Basophils # 0.2 (0-0.2) k/uL PT 9.4 (9.0-12.0) sec INR 0.9 (<1.2) APTT 27.6 (22.0-30.0) sec D-Dimer 1.68 H (<0.60) mg/L FEU Sodium 133 L (137-145) mmol/L Potassium 4.1 (3.5-5.1) mmol/L Chloride 99 (98-107) mmol/L Carbon Dioxide 26 (22-30) mmol/L Anion Gap 8 mmol/L BUN 11 (7-17) mg/dL Creatinine 0.95 (0.52-1.04) mg/dL Est GFR (CKD-EPI)AfAm >90 (>60 ml/min/1.73 sqM) Est GFR (CKD-EPI)NonAf 78 (>60 ml/min/1.73 sqM) Glucose 106 H (74-99) mg/dL Plasma Lactic Acid Ronnie (0.7-2.0) mmol/L Calcium 9.3 (8.4-10.2) mg/dL Total Bilirubin 0.3 (0.2-1.3) mg/dL AST 59 H (14-36) U/L ALT 26 (4-34) U/L Alkaline Phosphatase 87 (38-126) U/L Lactate Dehydrogenase 783 H (313-618) U/L Creatine Kinase 2108 H* (30-135) U/L Troponin I (0.000-0.034) ng/mL Total Protein 7.4 (6.3-8.2) g/dL Albumin 4.2 (3.5-5.0) g/dL Urine Color Urine Appearance (Clear) Urine pH (5.0-8.0) Ur Specific [place] (1.001-1.035) Urine Protein (Negative) Urine Glucose (UA) (Negative) Urine Ketones (Negative) Urine Blood (Negative) Urine Nitrite (Negative) Urine Bilirubin (Negative) Urine Urobilinogen (<2.0) mg/dL Ur Leukocyte Esterase (Negative) Urine RBC (0-5) /hpf Urine WBC (0-5) /hpf Ur Squamous Epith Cells (0-4) /hpf Urine Bacteria (None) /hpf Hyaline Casts (0-2) /lpf Influenza Type A RNA (Not Detectd) Influenza Type B (PCR) (Not Detectd) 11/12/19 11/12/19 11/12/19 Range/Units 04:05 04:05 04:05 WBC (3.8-10.6) k/uL RBC (3.80-5.40) m/uL Hgb (11.4-16.0) gm/dL Hct (34.0-46.0) % MCV (80.0-100.0) fL MCH (25.0-35.0) pg MCHC (31.0-37.0) g/dL RDW (11.5-15.5) % Plt Count (150-450) k/uL Neutrophils % % Lymphocytes % % Monocytes % % Eosinophils % % Basophils % % Neutrophils # (1.3-7.7) k/uL Lymphocytes # (1.0-4.8) k/uL Monocytes # (0-1.0) k/uL Eosinophils # (0-0.7) k/uL Basophils # (0-0.2) k/uL PT (9.0-12.0) sec INR (<1.2) APTT (22.0-30.0) sec D-Dimer (<0.60) mg/L FEU Sodium (137-145) mmol/L Potassium (3.5-5.1) mmol/L Chloride (98-107) mmol/L Carbon Dioxide (22-30) mmol/L Anion Gap mmol/L BUN (7-17) mg/dL Creatinine (0.52-1.04) mg/dL Est GFR (CKD-EPI)AfAm (>60 ml/min/1.73 sqM) Est GFR (CKD-EPI)NonAf (>60 ml/min/1.73 sqM) Glucose (74-99) mg/dL Plasma Lactic Acid Ronnie 0.7 (0.7-2.0) mmol/L Calcium (8.4-10.2) mg/dL Total Bilirubin (0.2-1.3) mg/dL AST (14-36) U/L ALT (4-34) U/L Alkaline Phosphatase (38-126) U/L Lactate Dehydrogenase (313-618) U/L Creatine Kinase (30-135) U/L Troponin I (0.000-0.034) ng/mL Total Protein (6.3-8.2) g/dL Albumin (3.5-5.0) g/dL Urine Color Light Yellow Urine Appearance Cloudy H (Clear) Urine pH 6.5 (5.0-8.0) Ur Specific [place] 1.010 (1.001-1.035) Urine Protein Negative (Negative) Urine Glucose (UA) Negative (Negative) Urine Ketones Negative (Negative) Urine Blood Moderate H (Negative) Urine Nitrite Negative (Negative) Urine Bilirubin Negative (Negative) Urine Urobilinogen <2.0 (<2.0) mg/dL Ur Leukocyte Esterase Trace H (Negative) Urine RBC 1 (0-5) /hpf Urine WBC 13 H (0-5) /hpf Ur Squamous Epith Cells 15 H (0-4) /hpf Urine Bacteria Occasional H (None) /hpf Hyaline Casts 1 (0-2) /lpf Influenza Type A RNA Not Detected (Not Detectd) Influenza Type B (PCR) Not Detected (Not Detectd) 11/12/19 Range/Units 04:05 WBC (3.8-10.6) k/uL RBC (3.80-5.40) m/uL Hgb (11.4-16.0) gm/dL Hct (34.0-46.0) % MCV (80.0-100.0) fL MCH (25.0-35.0) pg MCHC (31.0-37.0) g/dL RDW (11.5-15.5) % Plt Count (150-450) k/uL Neutrophils % % Lymphocytes % % Monocytes % % Eosinophils % % Basophils % % Neutrophils # (1.3-7.7) k/uL Lymphocytes # (1.0-4.8) k/uL Monocytes # (0-1.0) k/uL Eosinophils # (0-0.7) k/uL Basophils # (0-0.2) k/uL PT (9.0-12.0) sec INR (<1.2) APTT (22.0-30.0) sec D-Dimer (<0.60) mg/L FEU Sodium (137-145) mmol/L Potassium (3.5-5.1) mmol/L Chloride (98-107) mmol/L Carbon Dioxide (22-30) mmol/L Anion Gap mmol/L BUN (7-17) mg/dL Creatinine (0.52-1.04) mg/dL Est GFR (CKD-EPI)AfAm (>60 ml/min/1.73 sqM) Est GFR (CKD-EPI)NonAf (>60 ml/min/1.73 sqM) Glucose (74-99) mg/dL Plasma Lactic Acid Ronnie (0.7-2.0) mmol/L Calcium (8.4-10.2) mg/dL Total Bilirubin (0.2-1.3) mg/dL AST (14-36) U/L ALT (4-34) U/L Alkaline Phosphatase (38-126) U/L Lactate Dehydrogenase (313-618) U/L Creatine Kinase (30-135) U/L Troponin I <0.012 (0.000-0.034) ng/mL Total Protein (6.3-8.2) g/dL Albumin (3.5-5.0) g/dL Urine Color Urine Appearance (Clear) Urine pH (5.0-8.0) Ur Specific [place] (1.001-1.035) Urine Protein (Negative) Urine Glucose (UA) (Negative) Urine Ketones (Negative) Urine Blood (Negative) Urine Nitrite (Negative) Urine Bilirubin (Negative) Urine Urobilinogen (<2.0) mg/dL Ur Leukocyte Esterase (Negative) Urine RBC (0-5) /hpf Urine WBC (0-5) /hpf Ur Squamous Epith Cells (0-4) /hpf Urine Bacteria (None) /hpf Hyaline Casts (0-2) /lpf Influenza Type A RNA (Not Detectd) Influenza Type B (PCR) (Not Detectd) - EKG Data -: EKG Interpreted by [place] EKG Comments: EKG was obtained due to tachycardia, EKG obtained at 4:08 AM, rate is 98 rhythm is sinus him a normal axis, normal intervals, AR 140, QRS 84, QTC [address] elevations or depressions no evidence of acute ischemia or infarction. Of note there is an S1 T3 pattern concerning for right heart strain. Disposition Clinical Impression: Exposure to COVID-19 virus, Rhabdomyolysis Disposition: ADMITTED IP TO THIS HOSP Condition: Serious
[2019-11-12 04:58] LABS: Basophils # (A) 0.2 k/uL (0-0.2); Basophils % (A) 3 %; Eosinophils # (A) 0.1 k/uL (0-0.7); Eosinophils % (A) 2 %; HCT 33.9 % (34.0-46.0); HGB 11.5 gm/dL (11.4-16.0); Lymphocytes # (A) 0.6 k/uL (1.0-4.8); Lymphocytes % (A) 13 %; MCHC 33.9 g/dL (31.0-37.0); MCV 88.4 fL (80.0-100.0); Mean Platelet Volume 7.1; Monocytes # (A) 0.4 k/uL (0-1.0); Monocytes % (A) 9 %; Neutrophils # (A) 3.2 k/uL (1.3-7.7); Neutrophils % (A) 72 %; Platelet Count 264 k/uL (150-450); RBC 3.84 m/uL (3.80-5.40); RDW 13.3 % (11.5-15.5); WBC 4.5 k/uL (3.8-10.6)
[2019-11-12] MEDS ORDERED: R INHALATION STA (05:06)
[2019-11-12 05:10] LABS: ALT 26 U/L (4-34); AST 59 U/L (14-36); African American GFR (CKD) >90 (>60 ml/min/1.73 sqM); Albumin 4.2 g/dL (3.5-5.0); Alkaline Phosphatase 87 U/L (38-126); Anion Gap 8 mmol/L; Blood Urea Nitrogen 11 mg/dL (7-17); Calcium 9.3 mg/dL (8.4-10.2); Carbon Dioxide 26 mmol/L (22-30); Chloride 99 mmol/L (98-107); Glucose 106 mg/dL (74-99); LDH 783 U/L (313-618); Non-African American GFR(CKD) 78 (>60 ml/min/1.73 sqM); Potassium 4.1 mmol/L (3.5-5.1); Sodium 133 mmol/L (137-145); Total Bilirubin 0.3 mg/dL (0.2-1.3); Total Protein 7.4 g/dL (6.3-8.2)
[2019-11-12 05:11] LABS: Appearance,Urine Cloudy (Clear); Bacteria,Urine Occasional /hpf; Bilirubin,Urine Negative (Negative); Blood,Urine Moderate (Negative); Color,Urine Light Yellow; Glucose,Urine (UA) Negative (Negative); Hyaline Casts,Urine 1 /lpf (0-2); Ketones,Urine Negative (Negative); Leukocyte Esterase,Urine Trace (Negative); Nitrite,Urine Negative (Negative); PH, Urine 6.5 (5.0-8.0); Protein,Urine Negative (Negative); RBC,Urine 1 /hpf (0-5); Squamous Epithelial Cell,Urine 15 /hpf (0-4); Urobilinogen,Urine <2.0 mg/dL (<2.0); WBC,Urine 13 /hpf (0-5)
[2019-11-12 05:15] LABS: INR 0.9 (<1.2); Partial Thromboplastin Time 27.6 sec (22.0-30.0); Prothrombin Time 9.4 sec (9.0-12.0)
[2019-11-12 05:19] LABS: Creatine Kinase 2108 U/L (30-135)
[2019-11-12 05:26] LABS: D-Dimer 1.68 mg/L FEU (<0.60)
[2019-11-12] MEDS ORDERED: NALOXONE 0.4 MG/ML 1 ML VIAL IV PRN (05:42)
[2019-11-12] MEDS ORDERED: ONDANSETRON 4 MG/2 ML VIAL IVP PRN (05:42)
[2019-11-12] MEDS ORDERED: MORPHINE SULFATE 4 MG/ML SYRINGE IV PRN (05:42)
--- NOTE | 2019-11-12 06:31 | CT ---
EXAMINATION TYPE: CT chest angio for PE DATE OF EXAM: 11/12/2019 COMPARISON: Same day chest x-ray. HISTORY: R/O PE, fever and cough. CT DLP: 598.50 mGycm. Automated Exposure Control for Dose Reduction was Utilized. CONTRAST: CTA scan of the thorax is performed with IV Contrast, patient injected with 80 mL of Isovue 370, pulm onary embolism protocol. MIP Images are created on CT scanner and reviewed. FINDINGS: LUNGS: Multifocal areas of groundglass opacities seen scattered throughout both upper and lower lungs with some more central and peripheral areas noted all measuring around 1 cm in size. Some measure up to nearly 2.0 cm. No pleural effusion or pneumothorax seen bilaterally. MEDIASTINUM: There is suboptimal bolus with marked heterogeneity and increased contrast in left heart system versus right heart system, exam is essentially nondiagnostic for acute pulmonary embolism. No thoracic aortic dissection or aneurysm noted. There are no greater than 1 cm hilar or mediastinal ly mph nodes. No cardiomegaly or pericardial effusion is seen. OTHER: S-shaped scoliotic curvature. IMPRESSION: 1. Nondiagnostic for acute pulmonary embolism. 2. Bilateral multifocal multilobar groundglass infiltrates, COVID-19 infection needs to be considered in the current climate.
[2019-11-12 09:36] LABS: Ferritin 105.2 ng/mL (10.0-291.0)
[2019-11-12] MEDS: ENOXAPARIN 60 MG/0.6 ML SYRINGE SQ SCH ×2 (09:44→21:13)
[2019-11-12] MEDS: ACETAMINOPHEN TAB 325 MG TAB PO PRN ×3 (09:44→21:21)
[2019-11-12] MEDS: IBUPROFEN 400 MG TAB PO PRN ×2 (09:45→15:57)
[2019-11-12] MEDS: FAMOTIDINE 20 MG TAB PO SCH ×2 (09:45→21:13)
[2019-11-12] MEDS ORDERED: ALPRAZolam 0.25 MG TAB PO PRN (13:07)
--- NOTE | 2019-11-12 13:19 | P.CNPUL ---
History of Present Illness Consult date: 11/12/19 Reason for consult: pneumonia History of present illness: This is a 34-year-old -[place] female patient who started 2 days ago to have some nonproductive dry cough along with some shortness of breath. Subsequently she started having increased body aches and pains and generalized weakness and yesterday she started having low-grade fever. At that time there was a concern that the patient may have a coronary artery score was 19 infection and for that reason she came into the hospital. 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 The patient came in and she was found to have a temperature of 104.2 and subsequently his temperature dropped down to 102.3 and 100.4. On her blood work, there was some lymphopenia and a d-dimer of 1.68 and a CPK of 02/0 02/2007. LDH was 783. Ferritin level was 105. Rest of the electrodes are all within normal limits. The patient is currently receiving ibuprofen for fever, she is an IV fluids with normal saline. She was started on Lovenox 60 mg IV every 12 hours. She is on room air oxygen and her pulse ox is 96%. CT angiogram showed bilateral multifocal multilobar groundglass infiltrates very highly suggestive of covert 19 infection. No nausea. No vomiting. No diarrhea. Some limited loss in the sense of taste and smell. Review of Systems Constitutional: Reports fatigue, Reports fever, Reports lethargy, Reports weakness Eyes: denies as per HPI, denies blurred vision, denies bulging eye, denies decreased vision, denies diplopia, denies discharge, denies dry eye, denies irritation, denies itching, denies pain, denies photophobia, denies loss of peripheral vision, denies loss of vision, denies tunnel vision/blind spots Ears: deny: decreased hearing, ear discharge, earache, tinnitus Ears, nose, mouth and throat: Reports as per HPI Breasts: absent: as per HPI, change in shape, gynecomastia, masses, nipple discharge, pain, skin changes, swelling Cardiovascular: Reports as per HPI Respiratory: Reports cough Gastrointestinal: Reports as per HPI, Reports nausea Genitourinary: Reports as per HPI Menstruation: Reports as per HPI, Reports cycle > 35 days Musculoskeletal: absent: ankle pain, ankle stiffness, ankle swelling, as per HPI, elbow pain, elbow stiffness, elbow swelling, foot pain, foot stiffness, foot swelling, hand pain, hand stiffness, hand swelling, hip pain, hip stiffness, hip swelling, knee pain, knee stiffness, knee swelling, shoulder pain, shoulder stiffness, shoulder swelling, wrist pain, wrist stiffness, wrist swelling Integumentary: Reports as per HPI Neurological: Reports as per HPI Psychiatric: Reports as per HPI Endocrine: Reports as per HPI, Reports fatigue Hematologic/Lymphatic: Reports as per HPI Allergic/Immunologic: Reports as per HPI Past Medical History Additional Past Medical History / Comment(s): heart murmur History of Any Multi-Drug Resistant Organisms: None Reported Past Surgical History: Section Past Anesthesia/Blood Transfusion Reactions: No Reported Reaction Past Psychological History: Anxiety, Depression Smoking Status: Never smoker Past Alcohol Use History: Occasional Past Drug Use History: None Reported - Past Family History Father Family Medical History: No Reported History Medications and Allergies Home Medications Medication Instructions Recorded Confirmed Type Sertraline [Zoloft] 100 mg PO DAILY 02/07/18 11/12/19 History Cyclobenzaprine [Flexeril] 10 mg PO BID PRN 11/12/19 11/12/19 History Dicyclomine [Bentyl] 10 - 20 mg PO TID PRN 11/12/19 11/12/19 History HYDROcodone/APAP 10-325MG [[place] 0.5 - 1 tab PO BID PRN 11/12/19 11/12/19 History 10-325] Ibuprofen [Motrin] 800 mg PO TID PRN 11/12/19 11/12/19 History Phentermine HCl [Adipex-P] 37.5 mg PO DAILY 11/12/19 11/12/19 History Promethazine 6.25MG/5Ml [Phenergan 5 - 10 ml PO QID PRN 11/12/19 11/12/19 History Syrup] traMADol HCL 25 - 50 mg PO BID PRN 11/12/19 11/12/19 History Allergies Allergy/AdvReac Type Severity Reaction Status Date / Time No Known Allergies Allergy Verified 11/12/19 06:35 Physical Exam Vitals: Vital Signs Temp Pulse Pulse Resp BP BP Pulse Ox 11/12/19 07:00 98.5 F 84 17 119/71 96 11/12/19 06:12 100.4 F H 18 11/12/19 06:00 91 21 108/69 98 11/12/19 05:40 94 27 H 111/61 97 11/12/19 05:20 95 18 131/77 94 L 11/12/19 05:00 95 18 134/81 98 11/12/19 04:50 102.3 F H 96 18 98 11/12/19 04:40 101 H 34 H 129/84 99 11/12/19 04:20 100 13 126/82 98 11/12/19 04:04 99 11/12/19 04:00 16 11/12/19 03:16 104.2 F H 116 H 24 134/86 98 Intake and Output 11/11/19 11/12/19 11/12/19 22:59 06:59 14:59 Other: Weight 117.934 kg 117.934 kg The patient appeared well nourished and normally developed. Vital signs as documented. Head exam is unremarkable. No scleral icterus or corneal arcus noted. Neck is without jugular venous distension, thyromegaly, or carotid bruits. Carotid upstrokes are brisk bilaterally. Lungs are clear to auscultation and percussion. Cardiac exam reveals the PMI to be normally sized and situated. Rhythm is regular. First and second heart sounds normal. No murmurs, rubs or gallops. Abdominal exam reveals normal bowel sounds, no masses, no organomegaly and no aortic enlargement. Extremities are nonedematous and both femoral and pedal pulses are normal.Examination of the skin revealed no evidence of significant rashes, suspicious appearing nevi or other concerning lesions.Neurologically, the patient is awake and alert and the patient does not have any focal neurological deficit. Cranial nerves are essentially intact. Results - Laboratory Findings CBC and BMP: 11/12/19 04:05 11/12/19 04:05 PT/INR, D-dimer PT 9.4 sec (9.0-12.0) 11/12/19 04:05 INR 0.9 (<1.2) 11/12/19 04:05 D-Dimer 1.68 mg/L FEU (<0.60) H 11/12/19 04:05 Abnormal lab findings: Abnormal Labs 10/06/20 10/06/20 10/06/20 04:05 04:05 04:05 Hct 33.9 L Lymphocytes # 0.6 L D-Dimer 1.68 H Sodium 133 L Glucose 106 H AST 59 H Lactate Dehydrogenase 783 H Creatine Kinase 2108 H* Urine Appearance Urine Blood Ur Leukocyte Esterase Urine WBC Ur Squamous Epith Cells Urine Bacteria 11/12/19 04:05 Hct Lymphocytes # D-Dimer Sodium Glucose AST Lactate Dehydrogenase Creatine Kinase Urine Appearance Cloudy H Urine Blood Moderate H Ur Leukocyte Esterase Trace H Urine WBC 13 H Ur Squamous Epith Cells 15 H Urine Bacteria Occasional H - Diagnostic Findings Chest x-ray: image reviewed CT scan - chest: image reviewed Assessment and Plan Plan: 1 acute patchy round glass pulmonary infiltrates with some fever and cough and addition to lymphopenia and elevated d-dimer. The presentation is very typical for acute bee virus COVID 19 pneumonia. The nasal swab by PCR was sent and the results are still pending for now. The patient is still having episodes of fever being treated with IV fluids and nonsteroidal anti-inflammatory medication. D-dimer slightly elevated and the patient was given Lovenox 60 mg subcu every 12 hours 2 obesity with a BMI of 44.6 3 fever 4 lymphopenia 5 elevated d-dimer Plan Awaiting bee virus Covid 19 nasal swab by PCR Temperature monitoring Lovenox at his same dose Monitor oxygenation May consider Remdesevir / Decadron combination of there is any worsening or decompensation in her condition.
[2019-11-12] MEDS ORDERED: DICYCLOMINE 10 MG CAP PO PRN (13:31)
[2019-11-12] MEDS ORDERED: CYCLOBENZAPRINE 10 MG TAB PO PRN (13:31)
[2019-11-12] MEDS ORDERED: HYDROcodone/APAP 10-325MG 1 EACH TAB PO PRN (13:31)
[2019-11-12] MEDS ORDERED: PROMETHAZINE HCL 6.25 MG/5 ML CUP PO PRN (13:31)
[2019-11-12] MEDS ORDERED: traMADol 50 MG TAB PO PRN (13:31)
--- NOTE | 2019-11-12 14:22 | P.HPIM ---
History of Present Illness 29-year-old pleasant female came in with compensative dry cough she is of breath going on for about 2 days cough is nonproductive. Patient was having generalized weakness body aches and high-grade fever. Patient is admitted for possible covid 19. PCR for the known coronary disease is pending at this time. Patient other lab work is consistent with the known coronavirus infection patient had lymphopenia elevated d-dimer up to 1.68 and elevated LDH along with elevated ferritin. Patient has multilobar groundglass obesity some CT angiogram without any PE patient is saturating well on room air. Patient had some limited loss of sense of taste and smell. Review of Systems REVIEW OF SYSTEMS: CONSTITUTIONAL: As mentioned in HPI HEENT: No recent visual problems or hearing problems. Denied any sore throat. CARDIOVASCULAR: No chest pain, orthopnea, PND, no palpitations, no syncope. PULMONARY: no hemoptysis. GASTROINTESTINAL: No diarrhea, no nausea, no vomiting, no abdominal pain. NEUROLOGICAL: No headaches, no weakness, no numbness. HEMATOLOGICAL: Denies any bleeding or petechiae. GENITOURINARY: Denies any burning micturition, frequency, or urgency. MUSCULOSKELETAL/RHEUMATOLOGICAL: Denies any joint pain, swelling, or any muscle pain. ENDOCRINE: Denies any polyuria or polydipsia. The rest of the 14-point review of systems is negative. Past Medical History Additional Past Medical History / Comment(s): heart murmur History of Any Multi-Drug Resistant Organisms: None Reported Past Surgical History: Section Past Anesthesia/Blood Transfusion Reactions: No Reported Reaction Past Psychological History: Anxiety, Depression Smoking Status: Never smoker Past Alcohol Use History: Occasional Past Drug Use History: None Reported - Past Family History Father Family Medical History: No Reported History Medications and Allergies Home Medications Medication Instructions Recorded Confirmed Type Sertraline [Zoloft] 100 mg PO DAILY 02/07/18 11/12/19 History Cyclobenzaprine [Flexeril] 10 mg PO BID PRN 11/12/19 11/12/19 History Dicyclomine [Bentyl] 10 - 20 mg PO TID PRN 11/12/19 11/12/19 History HYDROcodone/APAP 10-325MG [[place] 0.5 - 1 tab PO BID PRN 11/12/19 11/12/19 History 10-325] Ibuprofen [Motrin] 800 mg PO TID PRN 11/12/19 11/12/19 History Phentermine HCl [Adipex-P] 37.5 mg PO DAILY 11/12/19 11/12/19 History Promethazine 6.25MG/5Ml [Phenergan 5 - 10 ml PO QID PRN 11/12/19 11/12/19 History Syrup] traMADol HCL 25 - 50 mg PO BID PRN 11/12/19 11/12/19 History Allergies Allergy/AdvReac Type Severity Reaction Status Date / Time No Known Allergies Allergy Verified 11/12/19 06:35 Physical Exam Vitals: Vital Signs Temp Pulse Pulse Resp BP BP Pulse Ox 11/12/19 13:17 98.8 F 86 18 141/84 98 11/12/19 07:00 98.5 F 84 17 119/71 96 11/12/19 06:12 100.4 F H 18 11/12/19 06:00 91 21 108/69 98 11/12/19 05:40 94 27 H 111/61 97 11/12/19 05:20 95 18 131/77 94 L 11/12/19 05:00 95 18 134/81 98 11/12/19 04:50 102.3 F H 96 18 98 11/12/19 04:40 101 H 34 H 129/84 99 11/12/19 04:20 100 13 126/82 98 11/12/19 04:04 99 11/12/19 04:00 16 11/12/19 03:16 104.2 F H 116 H 24 134/86 98 Intake and Output 11/11/19 11/12/19 11/12/19 22:59 06:59 14:59 Other: # Voids 2 Weight 117.934 kg 117.934 kg PHYSICAL EXAMINATION: GENERAL: The patient is alert and oriented x3, not in any acute distress. Well developed, well nourished. HEENT: Pupils are round and equally reacting to light. EOMI. No scleral icterus. No conjunctival pallor. Normocephalic, atraumatic. No pharyngeal erythema. No thyromegaly. CARDIOVASCULAR: S1 and S2 present. No murmurs, rubs, or gallops. PULMONARY: Diminished air entry without any wheezing ABDOMEN: Soft, nontender, nondistended, normoactive bowel sounds. No palpable organomegaly. MUSCULOSKELETAL: No joint swelling or deformity. EXTREMITIES: No cyanosis, clubbing, or pedal edema. NEUROLOGICAL: Gross neurological examination did not reveal any focal deficits. SKIN: No rashes. Note: Because of COVID 19 isolation, some of the history and physical exam findings or indirect and obtained from nursing staff, and other physician examinations to avoid unnecessary contact with the patient. Results CBC & Chem 7: 11/12/19 04:05 11/12/19 04:05 Labs: Abnormal Lab Results - Last 24 Hours (Table) 11/12/19 11/12/19 11/12/19 Range/Units 04:05 04:05 04:05 Hct 33.9 L (34.0-46.0) % Lymphocytes # 0.6 L (1.0-4.8) k/uL D-Dimer 1.68 H (<0.60) mg/L FEU Sodium 133 L (137-145) mmol/L Glucose 106 H (74-99) mg/dL AST 59 H (14-36) U/L Lactate Dehydrogenase 783 H (313-618) U/L Creatine Kinase 2108 H* (30-135) U/L Urine Appearance (Clear) Urine Blood (Negative) Ur Leukocyte Esterase (Negative) Urine WBC (0-5) /hpf Ur Squamous Epith Cells (0-4) /hpf Urine Bacteria (None) /hpf 11/12/19 Range/Units 04:05 Hct (34.0-46.0) % Lymphocytes # (1.0-4.8) k/uL D-Dimer (<0.60) mg/L FEU Sodium (137-145) mmol/L Glucose (74-99) mg/dL AST (14-36) U/L Lactate Dehydrogenase (313-618) U/L Creatine Kinase (30-135) U/L Urine Appearance Cloudy H (Clear) Urine Blood Moderate H (Negative) Ur Leukocyte Esterase Trace H (Negative) Urine WBC 13 H (0-5) /hpf Ur Squamous Epith Cells 15 H (0-4) /hpf Urine Bacteria Occasional H (None) /hpf Thrombosis Risk Factor Assmnt - Choose All That Apply Any of the Below Risk Factors Present?: Yes Each Factor Represents 1 point: Obesity (BMI >25) Other Risk Factors: No Other congenital or acquired thrombophilia - If yes, enter type in comment: No Thrombosis Risk Factor Assessment Total Risk Factor Score: 1 Thrombosis Risk Factor Assessment Level: Low Risk Assessment and Plan Plan: -Sepsis/systemic inflammatory response syndrome secondary to most probably COVID 19, patient did have encounter with sick contacts. Patient will be monitored for any hypoxemia continue supportive care IV fluids. Continue with nonsteroidal anti-inflammatory vacations at this time doesn't meet criteria for systemic steroids at this time continue with Lovenox 60 mg every 12 hourly. Doesn't qualify for from January as well. Patient will be monitored for 1 more night. Unfortunately patient has 2 little kids at home. -Obesity -Depression and anxiety continue Xanax and sertraline as needed -Mild hypovolemic hyponatremia 20 with IV fluids GI prophylaxis with Pepcid
[2019-11-12] MEDS ORDERED: diphenhydrAMINE 25 MG CAP PO PRN (18:14)
[2019-11-13] MEDS: SODIUM CHLORIDE 0.9% 1,000 ML IV SCH ×2 (03:36→08:23)
[2019-11-13 08:11] VITALS: BP 120/75; PULSE 86; RESP 18; TEMP 98.4
[2019-11-13] MEDS: ENOXAPARIN 60 MG/0.6 ML SYRINGE SQ SCH (08:22)
[2019-11-13] MEDS: IBUPROFEN 400 MG TAB PO PRN (08:22)
[2019-11-13] MEDS: FAMOTIDINE 20 MG TAB PO SCH (08:22)
[2019-11-13] MEDS ORDERED: SERTRALINE 100 MG TAB PO SCH (09:00)
[2019-11-13] MEDS: ALBUTEROL HFA INHALER INHALATION PRN ×2 (09:13→13:29)
--- NOTE | 2019-11-13 12:40 | P.PN ---
Subjective Progress Note Date: 11/13/19 Principal diagnosis: COVID 19 pneumonia This is a 34-year-old -[place] female patient who started 2 days ago to have some nonproductive dry cough along with some shortness of breath. Subsequently she started having increased body aches and pains and generalized weakness and yesterday she started having low-grade fever. At that time there was a concern that the patient may have a coronary artery score was 19 infection and for that reason she came into the hospital. Note that the patient has been involved in rastafari activities and apparently few [facility] nurse were infected with covvid 19. The patient came in and she was found to have a temperature of 104.2 and subsequently his temperature dropped down to 102.3 and 100.4. On her blood work, there was some lymphopenia and a d-dimer of 1.68 and a CPK of 03/09/2007. LDH was 783. Ferritin level was 105. Rest of the electrodes are all within normal limits. The patient is currently receiving ibuprofen for fever, she is an IV fluids with normal saline. She was started on Lovenox 60 mg IV every 12 hours. She is on room air oxygen and her pulse ox is 96%. CT angiogram showed bilateral multifocal multilobar groundglass infiltrates very highly suggestive of covert 19 infection. No nausea. No vomiting. No diarrhea. Some limited loss in the sense of taste and smell. On 11/13/2019 patient seen in follow-up on medical surgical floor, she is resting comfortably in bed, she is on room air, her pulse ox 97%, only one episode of low-grade fever with the T-max of 99F since yesterday, no worsening dyspnea, no significant cough or congestion, she has mild diarrhea, but no nausea or vomiting, vital signs have been stable, her COVID 19 PCR was negative. Blood culture has been negative. She is tolerating oral intake. Patient continues on therapeutic dose Lovenox 60 mg every 6 hours, cough syrup, albuterol, Pepcid. Her CK is trending down, down to 929, her IV fluids infusing at a rate of 200. Objective - Vital Signs Vital signs: Vital Signs Temp 98.4 F 11/13/19 07:00 Pulse 86 11/13/19 07:00 Resp 18 11/13/19 07:00 BP 120/75 11/13/19 07:00 Pulse Ox 96 11/13/19 07:00 Intake & Output 11/12/19 11/13/19 11/13/19 18:59 06:59 18:59 Intake Total 1500 236 Balance 1500 236 Weight 117.934 kg Intake: Intake, IV Titration 1200 Amount Sodium Chloride 0.9% 1, 1200 000 ml @ 200 mls/hr IV . Q5H [facility] Rx#:[id number] Oral 300 236 Other: # Voids 2 1 - Exam GENERAL EXAM: Alert, very pleasant, 34-year-old obese -[place] female, on room air with pulse ox of 96% comfortable in no apparent distress. HEAD: Normocephalic/atraumatic. EYES: Normal reaction of pupils, equal size. Conjunctiva pink, sclera white. NOSE: Clear with pink turbinates. THROAT: No erythema or exudates. NECK: No masses, no JVD, no thyroid enlargement, no adenopathy. CHEST: No chest wall deformity. Symmetrical expansion. LUNGS: Equal air entry with no crackles, wheeze, rhonchi or dullness. CVS: Regular rate and rhythm, normal S1 and S2, no gallops, no murmurs, no rubs ABDOMEN: Soft, nontender. No hepatosplenomegaly, normal bowel sounds, no guarding or rigidity. EXTREMITIES: No clubbing, no edema, no cyanosis, 2+ pulses and upper and lower extremities. MUSCULOSKELETAL: Muscle strength and tone normal. SPINE: No scoliosis or deformity SKIN: No rashes CENTRAL NERVOUS SYSTEM: Alert and oriented -3. No focal deficits, tone is normal in all 4 extremities. PSYCHIATRIC: Alert and oriented -3. Appropriate affect. Intact judgment and insight. - Labs CBC & Chem 7: 11/12/19 04:05 11/12/19 04:05 Labs: Abnormal Lab Results - Last 24 Hours (Table) 11/12/19 11/13/19 Range/Units 04:05 11:14 Creatine Kinase 929 H (30-135) U/L Coronavirus (PCR) Detected H (Not Detected) Microbiology - Last 24 Hours (Table) 11/12/19 04:05 Blood Culture - Preliminary Blood No Growth after 24 hours 11/12/19 04:20 Blood Culture - Preliminary Blood No Growth after 24 hours Assessment and Plan Plan: Assessment: 1 acute patchy round glass pulmonary infiltrates with some fever and cough and addition to lymphopenia and elevated d-dimer. The presentation is very typical for acute bee virus COVID 19 pneumonia. The nasal swab by PCR was sent and the results are still pending for now. The patient is still having episodes of fever being treated with IV fluids and nonsteroidal anti-inflammatory medication. D-dimer slightly elevated and the patient was given Lovenox 60 mg subcu every 12 hours 2 obesity with a BMI of 44.6 3 fever 4 lymphopenia 5 elevated d-dimer Plan: Patient has remained clinically stable over the last 24 hours, she has been afebrile, no difficulty breathing, just mild diarrhea, continue with current medical treatment, no acute events overnight, patient is requesting to go home today. Patient symptoms are mild, and she could possibly be discharged home if remains stable, and she needs to isolate herself, if her symptoms worsen, patient was instructed to come back for reevaluation. I performed a history & physical examination of the patient and discussed their management with my nurse practitioner, Andreina Santiago. I reviewed the nurse practitioner's note and agree with the documented findings and plan of care. Lung sounds are positive for clear breath sounds. The findings and the impression was discussed with the patient. I attest to the documentation by the nurse practitioner. Time with Patient: Less than 30
--- NOTE | 2019-11-13 13:18 | P.DS ---
Providers Date of admission: 11/12/19 05:42 Attending physician: Angelina Burgess Consults: 11/12/19 06:57 Consult Physician Urgent Consulting Provider: Birgit Ty Consult Reason/Comments: likely COVID Do you want consulting provider notified?: Yes, Notify in am Primary care physician: Leeanna Lucio [facility] Course: 29-year-old pleasant female came in with compensative dry cough she is of breath going on for about 2 days cough is nonproductive. Patient was having generalized weakness body aches and high-grade fever. Patient is admitted for possible covid 19. PCR for the known coronary disease is pending at this time. Patient other lab work is consistent with the known coronavirus infection patient had lymphopenia elevated d-dimer up to 1.68 and elevated LDH along with elevated ferritin. Patient has multilobar groundglass obesity some CT angiogram without any PE patient is saturating well on room air. Patient had some limited loss of sense of taste and smell. 11/12/2028 patient is afebrile a feeling better today patient will be asked to come back if her oxygen saturation goes down at home. I'm expecting her to get better. Is not requiring any steroids at this time. PHYSICAL EXAMINATION: GENERAL: The patient is alert and oriented x3, not in any acute distress. Well developed, well nourished. HEENT: Pupils are round and equally reacting to light. EOMI. No scleral icterus. No conjunctival pallor. Normocephalic, atraumatic. No pharyngeal erythema. No thyromegaly. CARDIOVASCULAR: S1 and S2 present. No murmurs, rubs, or gallops. PULMONARY: Diminished air entry without any wheezing ABDOMEN: Soft, nontender, nondistended, normoactive bowel sounds. No palpable organomegaly. MUSCULOSKELETAL: No joint swelling or deformity. EXTREMITIES: No cyanosis, clubbing, or pedal edema. NEUROLOGICAL: Gross neurological examination did not reveal any focal deficits. SKIN: No rashes. Note: Because of COVID 19 isolation, some of the history and physical exam findings or indirect and obtained from nursing staff, and other physician examinations to avoid unnecessary contact with the patient. Assessment and Plan Plan: -Sepsis/systemic inflammatory response syndrome secondary to COVID 19, clinically doing better today and will be discharged today -Obesity -Depression and anxiety continue Xanax and sertraline as needed -Mild hypovolemic hyponatremia 20 with IV fluids GI prophylaxis with Pepcid Patient Condition at Discharge: Serious Plan - Discharge Summary Discharge Rx Participant: Yes New Discharge Prescriptions: New Famotidine [Pepcid] 20 mg PO BID #10 tab Zinc 50 mg PO DAILY #10 tablet Continue Sertraline [Zoloft] 100 mg PO DAILY Promethazine 6.25MG/5Ml [Phenergan Syrup] 5 - 10 ml PO QID PRN PRN Reason: Cough Phentermine HCl [Adipex-P] 37.5 mg PO DAILY Ibuprofen [Motrin] 800 mg PO TID PRN PRN Reason: Pain HYDROcodone/APAP 10-325MG [[place] 10-325] 0.5 - 1 tab PO BID PRN PRN Reason: Pain Dicyclomine [Bentyl] 10 - 20 mg PO TID PRN PRN Reason: GI CRAMPS Cyclobenzaprine [Flexeril] 10 mg PO BID PRN PRN Reason: Muscle Spasm traMADol HCL 25 - 50 mg PO BID PRN PRN Reason: Pain Discharge Medication List Sertraline [Zoloft] 100 mg PO DAILY 02/07/18 [History] Cyclobenzaprine [Flexeril] 10 mg PO BID PRN 11/12/19 [History] Dicyclomine [Bentyl] 10 - 20 mg PO TID PRN 11/12/19 [History] HYDROcodone/APAP 10-325MG [[place] 10-325] 0.5 - 1 tab PO BID PRN 11/12/19 [History] Ibuprofen [Motrin] 800 mg PO TID PRN 11/12/19 [History] Phentermine HCl [Adipex-P] 37.5 mg PO DAILY 11/12/19 [History] Promethazine 6.25MG/5Ml [Phenergan Syrup] 5 - 10 ml PO QID PRN 11/12/19 [History] traMADol HCL 25 - 50 mg PO BID PRN 11/12/19 [History] Famotidine [Pepcid] 20 mg PO BID #10 tab 11/13/19 [Rx] Zinc 50 mg PO DAILY #10 tablet 11/13/19 [Rx] Follow up Appointment(s)/Referral(s): Raymond Durán MD [Primary Care Provider] - 3 Days [facility], [NON-STAFF] - Patient Instructions/Handouts: Viral Pneumonia (DC) Discharge Disposition: HOME SELF-CARE
== END 2019-11-13 15:08 | disposition home or self-care (01) ==
LOC: EC 03:14 → 4SSUR 05:42
PROVIDERS: ADMIT Hospitalist; ATTEND Hospitalist
DX: U07.1 COVID-19 (principal); A41.89 Other specified sepsis; E66.01 Morbid (severe) obesity due to excess calories; E86.1 Hypovolemia; E87.1 Hypo-osmolality and hyponatremia; F41.9 Anxiety disorder, unspecified; F32.9 Major depressive disorder, single episode, unspecified; Z68.41 Body mass index [BMI] 40.0-44.9, adult; Z79.899 Other long term (current) drug therapy; Z98.890 Other specified postprocedural states
CPT/HCPCS: 96361 ×3; 96372 ×2; 96374; 99285; 36415; 94640 ×3; 93005; 85379; 80053; 82728; 82550 ×2; 83605; 83615; 84484; 85025; 85610; 85730; 81001; 87040; 87502; 84145; 71045; 71275; G0378 ×2; U0003; J2270; J1650 ×2; Q9967

== ENCOUNTER 2019-11-18 18:05 | Inpatient (IN) | payer OTHER ==
[2019-11-18] MEDS ORDERED: SODIUM CHLORIDE 0.9% 500 ML 500 ML IV STA (18:36)
[2019-11-18] MEDS ORDERED: SODIUM CHLORIDE 0.9% 1,000 ML IV STA (18:36)
--- NOTE | 2019-11-18 18:41 | ED ---
General Adult HPI - General Chief complaint: Recheck/Abnormal Lab/Rx Stated complaint: +COVID, SOB/ANTONIO, Chest Pain Time Seen by Provider: 11/18/19 18:21 Source: patient Mode of arrival: wheelchair Limitations: no limitations - History of Present Illness Initial comments: Dictation was produced using [employer] dictation software. please excuse any gram matical, word or spelling errors. This patient was cared for during a federal and state declared state of emergency secondary to Covid 19 Chief Complaint: 34-year-old female presents with difficulty breathing, History of Present Illness: 34-year-old female with known Covid positive test presents today with difficulty in breathing, generalized fatigue, malaise. Patient was recently admitted discharge from the hospital. Patient was seen here in emergency department 6 days ago where she was high suspicion for Covid. She is admitted where she was treated and evaluated by pulmonology. Patient felt well and was discharged in stable medical condition. She was discharged 5 days ago. Over the last couple days she feels like her symptoms return. She feels like she is dehydrated. She has been having some diarrhea. She feels muscle aches diffusely. The ROS documented in this emergency department record has been reviewed and confirmed by me. Those systems with pertinent positive or negative responses have been documented in the HPI. All other systems are other negative and/or noncontributory. PHYSICAL EXAM: General Impression: Alert and oriented x3, mildly dyspneic HEENT: Normocephalic atraumatic, extra-ocular movements intact, pupils equal and reactive to light bilaterally, mucous membranes moist. Cardiovascular: Heart regular rate and rhythm Chest: Able to complete full sentences, no retractions, mildly dyspneic Abdomen: abdomen soft, non-tender, non-distended, no organomegaly Musculoskeletal: Pulses present and equal in all extremities, no peripheral yane a Motor: no focal deficits noted Neurological: CN II-XII grossly intact, no focal motor or sensory deficits noted Skin: Intact with no visualized rashes Psych: Normal affect and mood ED course: 34-year-old feel presents with generalized fatigue, shortness of breath, cough and muscle aches. Patient is an obese -[place] female with known Covid 19 positive test. She does appear slightly dyspneic however able to complete full senses. Laboratory evaluation obtained. CBC unremarkable. Coag panel negative. D- dimer 0.88. Metabolic panel is unremarkable. LDH 625. CRP is 72.1. Chest x- ray shows no mild infiltrate to the right lung base. CT angios the chest was obtained because of elevated d-dimer. No evidence of PE. CT and she appears worse than previous exam. Patient will be admitted to our coving unit. Case was discussed with Dr. Burgess was went accept patient's care. - Related Data Home Medications Medication Instructions Recorded Confirmed Sertraline [Zoloft] 100 mg PO DAILY 02/07/18 11/18/19 Cyclobenzaprine [Flexeril] 10 mg PO BID PRN 11/12/19 11/18/19 Dicyclomine [Bentyl] 10 - 20 mg PO TID PRN 11/12/19 11/18/19 Ibuprofen [Motrin] 800 mg PO TID PRN 11/12/19 11/18/19 Promethazine 6.25MG/5Ml [Phenergan 5 - 10 ml PO QID PRN 11/12/19 11/18/19 Syrup] Albuterol Inhaler [Ventolin Hfa 2 puff INHALATION RT-Q4H PRN 11/18/19 11/18/19 Inhaler] Previous Rx's Medication Instructions Recorded Famotidine [Pepcid] 20 mg PO BID #10 tab 11/13/19 Zinc 50 mg PO DAILY #10 tablet 11/13/19 Allergies Allergy/AdvReac Type Severity Reaction Status Date / Time No Known Allergies Allergy Verified 11/18/19 20:51 Review of Systems ROS Statement: Those systems with pertinent positive or pertinent negative responses have been documented in the HPI. ROS Other: All systems not noted in ROS Statement are negative. Past Medical History Past Medical History: No Reported History Additional Past Medical History / Comment(s): heart murmur History of Any Multi-Drug Resistant Organisms: None Reported Past Surgical History: Section Past Anesthesia/Blood Transfusion Reactions: No Reported Reaction Past Psychological History: Anxiety, Depression Smoking Status: Never smoker Past Alcohol Use History: Occasional Past Drug Use History: None Reported - Past Family History Father Family Medical History: No Reported History General Exam Limitations: no limitations Course Vital Signs 11/18/19 18:15 Temperature 99.4 F Pulse Rate 101 H Respiratory 20 Rate Blood Pressure 109/54 O2 Sat by Pulse 98 Oximetry Medical Decision Making - Lab Data Result diagrams: 11/18/19 18:48 11/18/19 18:48 Lab Results 11/18/19 11/18/19 11/18/19 Range/Units 18:48 18:48 18:48 WBC 6.2 (3.8-10.6) k/uL RBC 4.02 (3.80-5.40) m/uL Hgb 11.6 (11.4-16.0) gm/dL Hct 35.2 (34.0-46.0) % MCV 87.5 (80.0-100.0) fL MCH 28.9 (25.0-35.0) pg MCHC 33.0 (31.0-37.0) g/dL RDW 12.8 (11.5-15.5) % Plt Count 428 (150-450) k/uL Neutrophils % 68 % Lymphocytes % 22 % Monocytes % 6 % Eosinophils % 0 % Basophils % 1 % Neutrophils # 4.2 (1.3-7.7) k/uL Lymphocytes # 1.4 (1.0-4.8) k/uL Monocytes # 0.4 (0-1.0) k/uL Eosinophils # 0.0 (0-0.7) k/uL Basophils # 0.0 (0-0.2) k/uL PT 9.4 (9.0-12.0) sec INR 0.9 (<1.2) APTT 25.3 (22.0-30.0) sec D-Dimer 0.88 H (<0.60) mg/L FEU Sodium 135 L (137-145) mmol/L Potassium 4.0 (3.5-5.1) mmol/L Chloride 101 (98-107) mmol/L Carbon Dioxide 26 (22-30) mmol/L Anion Gap 8 mmol/L BUN 7 (7-17) mg/dL Creatinine 0.82 (0.52-1.04) mg/dL Est GFR (CKD-EPI)AfAm >90 (>60 ml/min/1.73 sqM) Est GFR (CKD-EPI)NonAf >90 (>60 ml/min/1.73 sqM) Glucose 113 H (74-99) mg/dL Plasma Lactic Acid Ronnie (0.7-2.0) mmol/L Calcium 9.1 (8.4-10.2) mg/dL Magnesium 2.3 (1.6-2.3) mg/dL Total Bilirubin 0.4 (0.2-1.3) mg/dL AST 33 (14-36) U/L ALT 16 (4-34) U/L Alkaline Phosphatase 76 (38-126) U/L Lactate Dehydrogenase 625 H (313-618) U/L C-Reactive Protein 72.1 H (<10.0) mg/L Total Protein 7.5 (6.3-8.2) g/dL Albumin 4.0 (3.5-5.0) g/dL 11/18/19 Range/Units 18:48 WBC (3.8-10.6) k/uL RBC (3.80-5.40) m/uL Hgb (11.4-16.0) gm/dL Hct (34.0-46.0) % MCV (80.0-100.0) fL MCH (25.0-35.0) pg MCHC (31.0-37.0) g/dL RDW (11.5-15.5) % Plt Count (150-450) k/uL Neutrophils % % Lymphocytes % % Monocytes % % Eosinophils % % Basophils % % Neutrophils # (1.3-7.7) k/uL Lymphocytes # (1.0-4.8) k/uL Monocytes # (0-1.0) k/uL Eosinophils # (0-0.7) k/uL Basophils # (0-0.2) k/uL PT (9.0-12.0) sec INR (<1.2) APTT (22.0-30.0) sec D-Dimer (<0.60) mg/L FEU Sodium (137-145) mmol/L Potassium (3.5-5.1) mmol/L Chloride (98-107) mmol/L Carbon Dioxide (22-30) mmol/L Anion Gap mmol/L BUN (7-17) mg/dL Creatinine (0.52-1.04) mg/dL Est GFR (CKD-EPI)AfAm (>60 ml/min/1.73 sqM) Est GFR (CKD-EPI)NonAf (>60 ml/min/1.73 sqM) Glucose (74-99) mg/dL Plasma Lactic Acid Ronnie 1.2 (0.7-2.0) mmol/L Calcium (8.4-10.2) mg/dL Magnesium (1.6-2.3) mg/dL Total Bilirubin (0.2-1.3) mg/dL AST (14-36) U/L ALT (4-34) U/L Alkaline Phosphatase (38-126) U/L Lactate Dehydrogenase (313-618) U/L C-Reactive Protein (<10.0) mg/L Total Protein (6.3-8.2) g/dL Albumin (3.5-5.0) g/dL Disposition Clinical Impression: COVID-19 Disposition: ADMITTED IP TO THIS HOSP Condition: Fair Referrals: Raymond Durán MD [Primary Care Provider] - 1-2 days Decision Time: 21:12
--- NOTE | 2019-11-18 18:59 | XR ---
EXAMINATION TYPE: XR chest 1V portable DATE OF EXAM: 11/18/2019 COMPARISON: 11/12/2019 HISTORY: Fever and cough. Pneumonia TECHNIQUE: Single view FINDINGS: There is some mild linear infiltrate and atelectasis at the right lung base. There are no h ilar masses. Heart size is normal. IMPRESSION: There is some new mild infiltrate or atelectasis at the right lung base compared to recen t exam. No heart failure seen.
[2019-11-18 19:16] LABS: Basophils % (A) 1 %; Eosinophils % (A) 0 %; HCT 35.2 % (34.0-46.0); HGB 11.6 gm/dL (11.4-16.0); Lymphocytes # (A) 1.4 k/uL (1.0-4.8); Lymphocytes % (A) 22 %; MCH 28.9 pg (25.0-35.0); MCV 87.5 fL (80.0-100.0); Mean Platelet Volume 6.6; Monocytes # (A) 0.4 k/uL (0-1.0); Monocytes % (A) 6 %; Neutrophils # (A) 4.2 k/uL (1.3-7.7); Neutrophils % (A) 68 %; Platelet Count 428 k/uL (150-450); RBC 4.02 m/uL (3.80-5.40); RDW 12.8 % (11.5-15.5); WBC 6.2 k/uL (3.8-10.6)
[2019-11-18 19:22] LABS: ALT 16 U/L (4-34); AST 33 U/L (14-36); African American GFR (CKD) >90 (>60 ml/min/1.73 sqM); Alkaline Phosphatase 76 U/L (38-126); Anion Gap 8 mmol/L; Blood Urea Nitrogen 7 mg/dL (7-17); C Reactive Protein 72.1 mg/L (<10.0); Calcium 9.1 mg/dL (8.4-10.2); Carbon Dioxide 26 mmol/L (22-30); Chloride 101 mmol/L (98-107); Glucose 113 mg/dL (74-99); LDH 625 U/L (313-618); Magnesium 2.3 mg/dL (1.6-2.3); Non-African American GFR(CKD) >90 (>60 ml/min/1.73 sqM); Sodium 135 mmol/L (137-145); Total Bilirubin 0.4 mg/dL (0.2-1.3); Total Protein 7.5 g/dL (6.3-8.2)
[2019-11-18] MEDS ORDERED: ONDANSETRON 4 MG/2 ML VIAL IVP STA (19:26)
[2019-11-18] MEDS ORDERED: ACETAMINOPHEN TAB 500 MG TAB PO STA (19:26)
[2019-11-18 19:30] LABS: INR 0.9 (<1.2); Partial Thromboplastin Time 25.3 sec (22.0-30.0); Prothrombin Time 9.4 sec (9.0-12.0)
[2019-11-18 19:33] LABS: D-Dimer 0.88 mg/L FEU (<0.60)
[2019-11-18] MEDS ORDERED: ORPHENADRINE 30 MG/ML 2 ML VIAL IVP STA (19:42)
--- NOTE | 2019-11-18 21:03 | CT ---
EXAMINATION TYPE: CT angio chest DATE OF EXAM: 11/18/2019 COMPARISON: 11/12/2019 HISTORY: Elevated D dimer. Covid positive CT DLP: 596.7 mGycm Automated exposure control for dose reduction was used. CONTRAST: Performed with IV Contrast, patient injected with 100 mL of Isovue 300. Images were obtained from the thoracic inlet to the diaphragm with IV contrast and 3-D post processed images. FINDINGS: There are multiple patchy areas of airspace infiltrate in the upper and lower lobes bilaterally. Ther e is some atelectasis at the posterior lung bases. Heart is borderline enlarged. There is no pericard ial effusion. There is no pleural effusion. Upper abdominal soft tissues are intact. There is no mediastinal adenopathy. There are a few bronchial lymph nodes that measure up to 1 cm. Th ere is normal contrast opacification of the pulmonary arteries. There are no filling defects. Thoraci c aorta is intact. There is no aneurysm or dissection. Thoracic vertebra have normal spacing and alignment. There is no compression fracture. Sternum is int act. IMPRESSION: No evidence of pulmonary embolism. There are bilateral patchy pulmonary airspace infiltrates and atel ectasis that appear slightly worse than previous exam.
[2019-11-18] MEDS ORDERED: CYCLOBENZAPRINE 10 MG TAB PO PRN (21:08)
[2019-11-18] MEDS ORDERED: DICYCLOMINE 10 MG CAP PO PRN (21:08)
[2019-11-18] MEDS ORDERED: NALOXONE 0.4 MG/ML 1 ML VIAL IV PRN (21:12)
[2019-11-18] MEDS: SODIUM CHLORIDE 0.9% 1,000 ML IV SCH (22:49)
--- NOTE | 2019-11-18 23:09 | HP ---
HISTORY AND PHYSICAL DATE OF SERVICE: 11/18/2019 CHIEF COMPLAINTS: Difficulty in breathing, abdominal discomfort, lower chest pain, diarrhea and COVID-19. HISTORY OF PRESENT ILLNESS: This 34-year-old woman with a past medical history of multiple medical problems, including cardiac murmur, section, anxiety, depression, obesity, being followed by Dr. Durán in the outpatient setting, was recently admitted with COVID-19 to [facility]. The patient had generalized weakness, body aches and high- grade fever during that admission. The patient also had lymphopenia and multilobar ground- glass opacities were also noted. The patient was treated symptomatically. The patient was discharged. Currently the patient is complaining of significant weakness. The patient also has chest pains, generalized fatigue, malaise. The patient feels her symptoms are returning. The patient has had diminished p.o. intake. Patient has some diarrhea symptoms also. Currently on admission the lab shows normal CBC. D- dimer is 0.8. Sodium 135 and LDH is 625. C-reactive protein is 72.1. The patient had a chest x-ray which was reviewed personally by me. It showed evidence of some right lower lobe infiltrates and atelectasis. The patient also had a CT of the chest which showed bilateral patchy infiltrates, slightly worse than the previous exam. The patient was admitted for further evaluation and treatment. There is no history of any fever, rigor or chills. No history of headache, loss of consciousness, seizures at this time. PAST MEDICAL HISTORY: History of recent COVID-19, heart murmur, anxiety, depression. HOME MEDICATIONS: Phenergan, dicyclomine, Ventolin, Zoloft, Motrin, Pepcid, Flexeril. ALLERGIES: NONE. FAMILY HISTORY: No history of heart disease or strokes in the family. SOCIAL HISTORY: No history of smoking. No history of alcohol intake. REVIEW OF SYSTEMS: ENT: No diminished hearing. No diminished vision. CARDIOVASCULAR SYSTEM: No angina, palpitations. RESPIRATORY SYSTEM: As mentioned earlier. GI: As mentioned earlier. : No dysuria or retention. NERVOUS SYSTEM: No numbness, weakness. ALLERGY/IMMUNOLOGY: No asthma, hayfever. MUSCULOSKELETAL: As mentioned earlier. HEMATOLOGY/ONCOLOGY: No history of anemia. ENDOCRINE: No history of diabetes, hypothyroidism. CONSTITUTIONAL: As mentioned earlier. DERMATOLOGY: Negative. RHEUMATOLOGY: Negative. PSYCHIATRY: As mentioned earlier. PHYSICAL EXAMINATION: Patient is alert and x3. Pulse is 101, blood pressure 109/54, respiration 20, temperature 99.4, pulse ox 98% on room air. HEENT: Conjunctivae normal. Oral mucosa moist. NECK: No jugular venous distention. No carotid bruit. No lymph node enlargement. CARDIOVASCULAR SYSTEM: S1, S2 muffled. No S3. No S4. RESPIRATORY SYSTEM: Breath sounds diminished at the bases. A few scattered rhonchi and crackles. ABDOMEN: Soft, obese, non-tender. No mass palpable. LEGS: No edema. No swelling. NERVOUS SYSTEM: Higher functions as mentioned earlier. Moves all 4 limbs. No focal motor or sensory deficit. LYMPHATICS: No lymph node palpable in neck, axillae or groin. SKIN: No ulcer, rash, bleeding. JOINTS: No active deforming arthropathy. LABS: Labs at this time show CBC within normal limits. D-dimer was 0.88 and sodium 135. LDH 625. C-reactive protein is 72.1. Other labs are noted. CT scan and chest x- ray personally reviewed. ASSESSMENT: 1. Acute bilateral COVID-19 pneumonia with failure of outpatient treatment and worsening. 2. Anterior chest pain. Rule out pericarditis or pericardial effusion. 3. Diarrhea abdominal symptoms, possibly secondary to COVID-19. 4. Generalized weakness and tiredness secondary to COVID-19. 5. History of heart murmur. 6. History of section. 7. History of anxiety, depression. 8. Morbid obesity with body mass index of 44.6. 9. Increased D-dimer. 10.Hyponatremia. 11.Elevated LDH. 12.Elevated CRP. RECOMMENDATIONS AND DISCUSSION: In 34-year-old woman who presented with multiple complex medical issues, we will monitor the patient closely, continue the current medications, continue symptomatic treatment. I recommend empiric antibiotics. Will check procalcitonin levels. Otherwise, pulmonary consultation. I would also recommend infectious disease evaluation to evaluate the patient for remdesivir. I would recommend Lovenox, bronchodilators, dexamethasone. Continue to monitor. Guarded prognosis. Further recommendations to follow. A copy of this dictation is being forwarded to Dr. Durán, who is the primary physician. MMIRAML / MONYN: [id number] / [facility] HOSPITALBessy
[2019-11-19] MEDS ORDERED: ALBUTEROL NEBULIZED 2.5 MG/3 ML INHALATION SCH
[2019-11-19] MEDS: PROMETHAZINE HCL 6.25 MG/5 ML CUP PO PRN ×2 (00:13→21:25)
[2019-11-19] MEDS: ENOXAPARIN 40 MG/0.4 ML SYRINGE SQ SCH ×3 (00:13→20:36)
[2019-11-19 03:54] LABS: Ferritin 176.1 ng/mL (10.0-291.0)
[2019-11-19] MEDS: ALBUTEROL HFA INHALER INHALATION SCH ×5 (06:11→20:07)
[2019-11-19] MEDS: FAMOTIDINE 20 MG TAB PO SCH ×2 (08:10→20:36)
[2019-11-19] MEDS: ZINC SULFATE 220 MG CAP PO SCH (08:10)
[2019-11-19] MEDS: SERTRALINE 100 MG TAB PO SCH (08:10)
[2019-11-19 11:10] LABS: Basophils % (A) 1 %; Eosinophils # (A) 0.1 k/uL (0-0.7); Eosinophils % (A) 2 %; HCT 34.3 % (34.0-46.0); HGB 10.9 gm/dL (11.4-16.0); Lymphocytes # (A) 1.4 k/uL (1.0-4.8); Lymphocytes % (A) 30 %; MCH 28.6 pg (25.0-35.0); MCHC 31.8 g/dL (31.0-37.0); MCV 89.9 fL (80.0-100.0); Mean Platelet Volume 7.6; Monocytes # (A) 0.4 k/uL (0-1.0); Monocytes % (A) 8 %; Neutrophils # (A) 2.7 k/uL (1.3-7.7); Neutrophils % (A) 56 %; Platelet Count 415 k/uL (150-450); RBC 3.82 m/uL (3.80-5.40); RDW 12.9 % (11.5-15.5); WBC 4.8 k/uL (3.8-10.6)
[2019-11-19 11:13] LABS: ALT 16 U/L (4-34); AST 32 U/L (14-36); African American GFR (CKD) >90 (>60 ml/min/1.73 sqM); Albumin 3.5 g/dL (3.5-5.0); Albumin/Globulin Ratio 1.1; Alkaline Phosphatase 72 U/L (38-126); Anion Gap 6 mmol/L; Blood Urea Nitrogen 7 mg/dL (7-17); Calcium 8.5 mg/dL (8.4-10.2); Carbon Dioxide 27 mmol/L (22-30); Chloride 104 mmol/L (98-107); Globulin 3.1 g/dL; Glucose 99 mg/dL (74-99); Non-African American GFR(CKD) >90 (>60 ml/min/1.73 sqM); Potassium 4.4 mmol/L (3.5-5.1); Sodium 137 mmol/L (137-145); Total Bilirubin 0.3 mg/dL (0.2-1.3); Total Protein 6.6 g/dL (6.3-8.2)
[2019-11-19] MEDS ORDERED: REMDESIVIR (EUA) 200 MG in SODIUM CHLORIDE 0.9% 250 ML IVPB ONE (11:30)
--- NOTE | 2019-11-19 13:03 | XR ---
EXAMINATION TYPE: XR chest 1V portable DATE OF EXAM: 11/19/2019 CLINICAL HISTORY: Covid-19 positive 2 weeks ago . Cough, shortness of breath. TECHNIQUE: Portable upright view of the chest obtained COMPARISON: 11/18/2019 chest radiograph. CTA chest 11/18/2019 FINDINGS: Mild cardiomegaly. The mediastinal silhouette is within normal limits for size. Pulmonary vasculature is normal. Multifocal patchy airspace opacities, right greater than left. No pleural effu meli or pneumothorax seen. The osseous structures are intact. IMPRESSION: Multifocal patchy airspace opacities bilaterally are not significantly changed from 11/17.
--- NOTE | 2019-11-19 13:09 | P.CNPUL ---
History of Present Illness Consult date: 11/19/19 Requesting physician: Angelina Brugess Reason for consult: dyspnea Chief complaint: dyspnea, nausea, diarrhea History of present illness: 34-year-old -Uz[place] female patient of Dr. Durán, was hospitalized last week for COVID 19 infection. We saw the patient in consultation during that admission. At that time, she had a dry cough, shortness of breath, loss and body aches low-grade fever, she tested positive for COVID 19, CT angiogram did show bilateral multifocal multilobar groundglass infiltrates. patient was on room air, did not require supplemental oxygen, she had some limited loss of smell and taste, she was treated with Lovenox. patient improved, she was discharged home on 11/13/2019 on zinc supplements, and oral Pepcid.patient came into the emergency department on 11/18/2019 for evaluation of difficulty breathing, generalized fatigue, malaise, cough, and patient did have some diarrhea. She is experiencing some diffuse body aches.chest x-ray shows some new mild infiltrate or atelectasis at the right lung base compared to recent exam.CTA chest showed no evidence of pulmonary embolism, but did show bilateral patchy pulmonary airspace infiltrates and atelectasis that appears slightly worse than previous exam. CBC was within normal limits, d-dimer 0.88, electrolyte and renal profile were within normal limits, lactic acid is 1.2, proBNP was 30, pro-calcitonin is 0.04. patient is afebrile, room air pulse ox is 94%, blood pressure is 97/64. Review of Systems All systems: negative Constitutional: Denies chills, Denies fever Eyes: denies blurred vision, denies pain Ears, nose, mouth and throat: Denies headache, Denies sore throat Cardiovascular: Reports dyspnea on exertion, Denies chest pain, Denies shortness of breath Respiratory: Reports cough, Reports dyspnea Gastrointestinal: Reports diarrhea, Denies abdominal pain, Denies nausea, Denies vomiting Genitourinary: Denies dysuria, Denies hematuria Musculoskeletal: Denies myalgias Integumentary: Denies pruritus, Denies rash Neurological: Denies numbness, Denies weakness Psychiatric: Denies anxiety, Denies depression Endocrine: Denies fatigue, Denies weight change Past Medical History Past Medical History: No Reported History Additional Past Medical History / Comment(s): heart murmur History of Any Multi-Drug Resistant Organisms: None Reported Past Surgical History: Section Past Anesthesia/Blood Transfusion Reactions: No Reported Reaction Past Psychological History: Anxiety, Depression Smoking Status: Never smoker Past Alcohol Use History: Occasional Past Drug Use History: None Reported - Past Family History Father Family Medical History: No Reported History Medications and Allergies Home Medications Medication Instructions Recorded Confirmed Type Sertraline [Zoloft] 100 mg PO DAILY 02/07/18 11/18/19 History Cyclobenzaprine [Flexeril] 10 mg PO BID PRN 11/12/19 11/18/19 History Dicyclomine [Bentyl] 10 - 20 mg PO TID PRN 11/12/19 11/18/19 History Ibuprofen [Motrin] 800 mg PO TID PRN 11/12/19 11/18/19 History Promethazine 6.25MG/5Ml [Phenergan 5 - 10 ml PO QID PRN 11/12/19 11/18/19 Histor y Syrup] Famotidine [Pepcid] 20 mg PO BID #10 tab 11/13/19 11/18/19 Rx Zinc 50 mg PO DAILY #10 tablet 11/13/19 11/18/19 Rx Albuterol Inhaler [Ventolin Hfa 2 puff INHALATION RT-Q4H PRN 11/18/19 11/18/19 History Inhaler] Allergies Allergy/AdvReac Type Severity Reaction Status Date / Time No Known Allergies Allergy Verified 11/18/19 20:51 Physical Exam Vitals: Vital Signs Temp Pulse Pulse Resp BP BP Pulse Ox 11/19/19 07:00 98.7 F 58 L 17 110/72 98 11/19/19 00:20 98.0 F 81 16 97/64 94 L 11/18/19 23:30 18 11/18/19 22:40 98.4 F 83 18 106/56 94 L 11/18/19 18:15 99.4 F 101 H 20 109/54 98 Intake and Output 11/18/19 11/19/19 11/19/19 22:59 06:59 14:59 Other: Voiding Method Toilet # Voids 1 Weight 117.934 kg GENERAL EXAM: Alert, very pleasant, 34-year-old obese -Uz[place] female, on room air, with a pulse ox of 94%, comfortable in no apparent distress. HEAD: Normocephalic/atraumatic. EYES: Normal reaction of pupils, equal size. Conjunctiva pink, sclera white. NOSE: Clear with pink turbinates. THROAT: No erythema or exudates. NECK: No masses, no JVD, no thyroid enlargement, no adenopathy. CHEST: No chest wall deformity. Symmetrical expansion. LUNGS: Equal air entry with no crackles, wheeze, rhonchi or dullness. CVS: Regular rate and rhythm, normal S1 and S2, no gallops, no murmurs, no rubs ABDOMEN: Soft, nontender. No hepatosplenomegaly, normal bowel sounds, no guardi ng or rigidity. EXTREMITIES: No clubbing, no edema, no cyanosis, 2+ pulses and upper and lower extremities. MUSCULOSKELETAL: Muscle strength and tone normal. SPINE: No scoliosis or deformity SKIN: No rashes CENTRAL NERVOUS SYSTEM: Alert and oriented -3. No focal deficits, tone is normal in all 4 extremities. PSYCHIATRIC: Alert and oriented -3. Appropriate affect. Intact judgment and insight. Results - Laboratory Findings CBC and BMP: 11/19/19 06:05 11/19/19 06:05 PT/INR, D-dimer PT 9.4 sec (9.0-12.0) 11/18/19 18:48 INR 0.9 (<1.2) 11/18/19 18:48 D-Dimer 0.88 mg/L FEU (<0.60) H 11/18/19 18:48 Abnormal lab findings: Abnormal Labs 11/18/19 11/18/19 11/19/19 18:48 18:48 06:05 Hgb D-Dimer 0.88 H Sodium 135 L Glucose 113 H Magnesium 2.4 H Lactate Dehydrogenase 625 H C-Reactive Protein 72.1 H 11/19/19 11/19/19 06:05 06:05 Hgb 10.9 L D-Dimer Sodium Glucose Magnesium Lactate Dehydrogenase C-Reactive Protein 61.6 H - Diagnostic Findings Chest x-ray: report reviewed, image reviewed CT scan - chest: report reviewed, image reviewed Assessment and Plan Plan: Assessment: #1. Worsening dyspnea and chest pain, and slightly worsened findings of phillip ateral patchy pulmonary airspace infiltrates on the chest x-ray and CTA chest related to recent Hx of COVID 19 infection #2. Elevated inflammatory markers related to quit 19 pneumonia #3. Fatigue, diarrhea, dyspnea, cough, diffuse body aches, related to the above #4.Morbid obesity #5.Anxiety/depression #6. Never smoker Plan: Continue current medical treatment,continue Lovenox,cough syrup, Pepcid,will add Remdesivir. we'll continue to follow inflammatory markers, continue monitoring febrile pattern, oxygenation requirements, continue to follow I performed a history & physical examination of the patient and discussed their management with my nurse practitioner, Anderina Santiago. I reviewed the nurse practitioner's note and agree with the documented findings and plan of care. Lung sounds are positive for diminished breath sounds. The findings and the impression was discussed with the patient. I attest to the documentation by the nurse practitioner. Time with Patient: Greater than 30
[2019-11-19] MEDS: dexAMETHasone 2 MG TAB PO SCH (14:36)
--- NOTE | 2019-11-19 15:57 | PN ---
PROGRESS NOTE DATE OF SERVICE: 11/19/2019 This is a 34-year-old woman who was admitted with worsening of the COVID-19 pneumonia, is being closely monitored. The patient has significant shortness of breath and cough also the most the CT scan of the chest was reviewed personally by me and compared with the previous 1. The most CT scan most recent chest x-ray was reviewed by me personally which also showed bilateral interstitial multifocal pneumonia, right more than the left. The patient is started on . The procalcitonin is only 0.04. The will be patient closely monitored at this time. PAST MEDICAL HISTORY: Reviewed. REVIEW OF SYSTEMS: CARDIOVASCULAR SYSTEM: No angina. RESPIRATION: As mentioned earlier. GI: As mentioned earlier. : As mentioned earlier. NERVOUS SYSTEM: As mentioned earlier. CURRENT MEDICATIONS: Reviewed and include: 1. Tylenol. 2. Ventolin. 3. Flexeril. 4. Hexadrol. 5. Bentyl. 6. Lovenox. 7. Pepcid. 8. Narcan. 9. Zoloft. 10.Orazinc. PHYSICAL EXAM: Patient is alert, oriented x3. Pulse is 58, blood pressure 110/70, respiration 17, temperature 98.7, pulse ox 98% on room air. HEENT: Conjunctivae normal. NECK: No jugular venous distension. RESPIRATION: Breath sounds diminished at the bases, a few scattered rhonchi, no crackles. ABDOMEN: Soft, obese. LEGS: No edema. No swelling. NERVOUS SYSTEM: No focal deficits. LABS: WBC 4.8, hemoglobin is 10.9, sodium 137, potassium 4.5. ASSESSMENT: 1. Acute bilateral COVID-19 pneumonia with failure of outpatient treatment and worsening. 2. Anterior chest pain, rule out pericarditis, pleurisy or pericardial effusion. 3. Diarrhea abdominal symptoms, possibly secondary to COVID-19. 4. Generalized weakness and tiredness secondary to COVID-19. 5. History of heart murmur. 6. History of section. 7. History of anxiety, depression. 8. Morbid obesity, body mass index of 44.6. 9. Increased D-dimer. 10.Hyponatremia. 11.Elevated LDH. 12.Elevated CRP secondary to COVID. 13.FULL CODE. RECOMMENDATION: In this 34-year-old woman who presented with multiple complex medical issues, will monitor the patient closely, continue with the current management. Repeat labs, continue with course, steroids, Pepcid, Lovenox, and zinc. Otherwise, continue with the rest of medications. The Mag level was normal. A 2D echo has been ordered. The prognosis guarded because of multiple complex medical issues. Further recommendations to follow. MMODL / IJN: [id number] / MELI
[2019-11-19 20:12] LABS: Appearance,Urine Cloudy (Clear); Bacteria,Urine Rare /hpf; Bilirubin,Urine Negative (Negative); Blood,Urine Negative (Negative); Color,Urine Yellow; Glucose,Urine (UA) Negative (Negative); Ketones,Urine Negative (Negative); Leukocyte Esterase,Urine Negative (Negative); Mucus,Urine Rare /hpf; Nitrite,Urine Positive (Negative); Protein,Urine Negative (Negative); Specific Gravity,Urine 1.012 (1.001-1.035); Squamous Epithelial Cell,Urine 1 /hpf (0-4); Urobilinogen,Urine <2.0 mg/dL (<2.0); WBC,Urine 3 /hpf (0-5)
[2019-11-19] MEDS: SODIUM CHLORIDE 0.9% 1,000 ML IV SCH (20:36)
--- NOTE | 2019-11-19 22:50 | P.CONS ---
History of Present Illness - Reason for Consult Consult date: 11/19/19 Covid 19 infection Requesting physician: Angelina Burgess - Chief Complaint Increasing shortness of breath and cough x one week - History of Present Illness Patient is a 34-year-old -Swedish female who was recently admitted to this facility last week or covid19 infection patient was discharged home on symptomatic treatment patient now presenting back to the hospital for evaluation of increasing shortness of breath and generalized fatigue weakness and cough the patient Has been moderate intensity with occasional sputum production no hemoptysis no chest pain no nausea no vomiting and abdominal pain, she did have diarrhea with multiple loose stools with the symptom the patient was reevaluated by the ER physician on arrival to the ER, the patient did have low-grade fever of 99.4F patient did have a normal white count with no lymphopenia d-dimer was elevated at 0.88, the patient did have normal liver enzymes CRP was elevated 72.1 Percocet was normal at 0.04, patient did have a chest x-ray with bilateral infiltrate. The patient also have a CT angiogram of the chest was negative for PE did shows bilateral patchy pulmonary airspace disease slightly worse from previous exam, patient has been admitted hospital infectious disease was consulted for further management of underlying covid 19 infection Review of Systems Positive point has been mentioned in the HPI rest of the systems are negative Past Medical History Past Medical History: No Reported History Additional Past Medical History / Comment(s): heart murmur History of Any Multi-Drug Resistant Organisms: None Reported Past Surgical History: Section Past Anesthesia/Blood Transfusion Reactions: No Reported Reaction Past Psychological History: Anxiety, Depression Smoking Status: Never smoker Past Alcohol Use History: Occasional Past Drug Use History: None Reported - Past Family History Father Family Medical History: No Reported History Medications and Allergies Home Medications Medication Instructions Recorded Confirmed Type Sertraline [Zoloft] 100 mg PO DAILY 02/07/18 11/18/19 History Cyclobenzaprine [Flexeril] 10 mg PO BID PRN 11/12/19 11/18/19 History Dicyclomine [Bentyl] 10 - 20 mg PO TID PRN 11/12/19 11/18/19 History Ibuprofen [Motrin] 800 mg PO TID PRN 11/12/19 11/18/19 History Promethazine 6.25MG/5Ml [Phenergan 5 - 10 ml PO QID PRN 11/12/19 11/18/19 History Syrup] Famotidine [Pepcid] 20 mg PO BID #10 tab 11/13/19 11/18/19 Rx Zinc 50 mg PO DAILY #10 tablet 11/13/19 11/18/19 Rx Albuterol Inhaler [Ventolin Hfa 2 puff INHALATION RT-Q4H PRN 11/18/19 11/18/19 History Inhaler] Allergies Allergy/AdvReac Type Severity Reaction Status Date / Time No Known Allergies Allergy Verified 11/18/19 20:51 Physical Exam Vitals: Vital Signs Temp Pulse Pulse Resp BP BP Pulse Ox 11/19/19 07:00 98.7 F 58 L 17 110/72 98 11/19/19 00:20 98.0 F 81 16 97/64 94 L 11/18/19 23:30 18 11/18/19 22:40 98.4 F 83 18 106/56 94 L 11/18/19 18:15 99.4 F 101 H 20 109/54 98 Intake and Output 11/18/19 11/19/19 11/19/19 22:59 06:59 14:59 Other: Voiding Method Toilet # Voids 1 Weight 117.934 kg GENERAL DESCRIPTION: Middle-aged female lying in bed, no distress. No tachypnea or accessory muscle of respiration use. HEENT: Shows Pallor , no scleral icterus. Oral mucous membrane is dry. No pharyngeal erythema or thrush NECK: Trachea central, no thyromegaly. LUNGS: Unlabored breathing. Decreased intensity of breath sounds. No wheeze or crackle. HEART: S1, S2, regular rate and rhythm. No loud murmur ABDOMEN: Soft, no tenderness , guarding or rigidity, no organomegaly EXTREMITIES: No edema of feet. SKIN: No rash, no masses palpable. NEUROLOGICAL: The patient is awake, alert, oriented x3, mood and affect normal. Results CBC & Chem 7: 11/19/19 06:05 11/19/19 06:05 Labs: Abnormal Lab Results - Last 24 Hours (Table) 11/18/19 11/18/19 11/19/19 Range/Units 18:48 18:48 06:05 Hgb (11.4-16.0) gm/dL D-Dimer 0.88 H (<0.60) mg/L FEU Sodium 135 L (137-145) mmol/L Glucose 113 H (74-99) mg/dL Magnesium 2.4 H (1.6-2.3) mg/dL Lactate Dehydrogenase 625 H (313-618) U/L C-Reactive Protein 72.1 H (<10.0) mg/L 11/19/19 11/19/19 Range/Units 06:05 06:05 Hgb 10.9 L (11.4-16.0) gm/dL D-Dimer (<0.60) mg/L FEU Sodium (137-145) mmol/L Glucose (74-99) mg/dL Magnesium (1.6-2.3) mg/dL Lactate Dehydrogenase (313-618) U/L C-Reactive Protein 61.6 H (<10.0) mg/L Assessment and Plan Assessment: 1- patient is a 34-year-old -Swedish female with recent diagnosis of Covid 19 pneumonia that was treated symptomatically presenting back to the hospital with increasing shortness of breath patient did have elevated d-dimer with evidence of worsening a little pulmonary infiltrate likely representing a failure of the symptomatic treatment (1) Pneumonia due to COVID-19 virus Current Visit: Yes Status: Acute Code(s): U07.1 - COVID-19; J12.89 - OTHER VIRAL PNEUMONIA SNOMED Code(s): [id number] Plan: 1- patient will be treated with Remdisivir per protocol in addition to the Lovenox dexamethasone and zinc 2-no need for systemic antibiotic therapy as no evidence of secondary bacterial infection 3-droplet isolation and respiratory support We will follow on clinical condition and cultures to further adjust medication if needed Thank you for this consultation will follow this patient with you Time with Patient: Greater than 30
[2019-11-20] MEDS: ALBUTEROL HFA INHALER INHALATION SCH ×7 (01:40→23:44)
[2019-11-20] MEDS: ACETAMINOPHEN TAB 325 MG TAB PO PRN (06:11)
[2019-11-20 06:16] LABS: Basophils % (A) 1 %; Eosinophils % (A) 0 %; HCT 37.1 % (34.0-46.0); HGB 12.1 gm/dL (11.4-16.0); Lymphocytes # (A) 1.3 k/uL (1.0-4.8); Lymphocytes % (A) 18 %; MCH 28.8 pg (25.0-35.0); MCHC 32.7 g/dL (31.0-37.0); MCV 88.1 fL (80.0-100.0); Mean Platelet Volume 6.5; Monocytes # (A) 0.5 k/uL (0-1.0); Monocytes % (A) 7 %; Neutrophils # (A) 5.3 k/uL (1.3-7.7); Neutrophils % (A) 72 %; Platelet Count 545 k/uL (150-450); RBC 4.21 m/uL (3.80-5.40); RDW 12.7 % (11.5-15.5); WBC 7.3 k/uL (3.8-10.6)
[2019-11-20] MEDS: FAMOTIDINE 20 MG TAB PO SCH ×2 (07:49→21:14)
[2019-11-20] MEDS: ENOXAPARIN 40 MG/0.4 ML SYRINGE SQ SCH ×2 (07:49→21:14)
[2019-11-20] MEDS: SERTRALINE 100 MG TAB PO SCH (07:49)
[2019-11-20] MEDS: dexAMETHasone 2 MG TAB PO SCH (07:50)
[2019-11-20] MEDS: ZINC SULFATE 220 MG CAP PO SCH (07:50)
--- NOTE | 2019-11-20 09:41 | XR ---
EXAMINATION TYPE: XR chest 1V portable DATE OF EXAM: 11/20/2019 COMPARISON: 11/19/2019 HISTORY: Shortness of breath TECHNIQUE: Single frontal view of the chest is obtained. FINDINGS: Multifocal patchy airspace disease is again seen with tiny right effusion. No pneumothorax . Heart mildly prominent. IMPRESSION: Patchy bilateral airspace disease stable in appearance correlate for pneumonia
[2019-11-20 09:45] LABS: African American GFR (CKD) 130.1 (60.0-200.0); Albumin 4.1 g/dL (3.80-4.90); Albumin/Globulin Ratio 1.46 (1.60-3.17); Anion Gap 9.9 mmol/L (4.00-12.00); BUN/Creat Ratio 12.86 Ratio (12.00-20.00); Calcium 9.7 mg/dL (8.7-10.3); Carbon Dioxide 24.1 mmol/L (21.6-31.8); Globulin 2.8 g/dL (1.6-3.3); Non-African American GFR(CKD) 112.3 (60.0-200.0); Potassium 4.8 mmol/L (3.5-5.5); Total Bilirubin 0.2 mg/dL (0.3-1.2); Total Protein 6.9 g/dL (6.2-8.2)
[2019-11-20] MEDS: REMDESIVIR (EUA) 100 MG in SODIUM CHLORIDE 0.9% 250 ML IVPB SCH (10:35)
--- NOTE | 2019-11-20 11:00 | ECHOF ---
Referral Reason:pericarditis MEASUREMENTS -------- HEIGHT: 188.0 cm WEIGHT: 122.5 kg BP: RVIDd: 2.5 cm (< 3.3) IVSd: 1.2 cm (0.6 - 1.1) LVIDd: 4.3 cm (3.9 - 5.3) LVPWd: 1.1 cm (0.6 - 1.1) IVSs: 1.9 cm LVIDs: 2.5 cm LVPWs: 1.4 cm Ao Diam: 2.5 cm (2.0 - 3.7) AV Cusp: 1.9 cm (1.5 - 2.6) LA Diam: 3.1 cm (2.7 - 3.8) MV EXCURSION: 12.842 mm (> 18.000) MV EF SLOPE: 97 mm/s (70 - 150) EPSS: 0.7 cm MV E Faustino: 0.69 m/s MV DecT: 181 ms MV A Faustino: 0.66 m/s MV E/A Ratio: 1.04 RAP: 5.00 mmHg RVSP: 14.84 mmHg FINDINGS -------- Sinus rhythm. This was a technically adequate study. The left ventricular size is normal. There is borderline concentric left ventricular hypertrophy. Overall left ventricular systolic function is normal with, an EF between 55 - 60 %. The right ventricle is normal in size. The left atrial size is normal. The right atrial size is normal. The aortic valve is trileaflet, and appears structurally normal. No aortic stenosis or regurgitation. Normal appearing mitral valve. The tricuspid valve appears structurally normal. Trace tricuspid regurgitation present. Right yahir tricular systolic pressure is normal at < 35 mmHg. There is no pulmonic regurgitation present. The aortic root size is normal. IVC Not well visulized. There is no pericardial effusion. CONCLUSIONS -------- 1. There is borderline concentric left ventricular hypertrophy. 2. Overall left ventricular systolic function is normal with, an EF between 55 - 60 %. 3. The left atrial size is normal. 4. The aortic valve is trileaflet, and appears structurally normal. No aortic stenosis or regurgitati on. 5. Normal appearing mitral valve. 6. Trace tricuspid regurgitation present. 7. There is no pericardial effusion. CUSTOMER SERVICE TECHNICIAN: Sherlyn Jimenez RDCS
[2019-11-20] MEDS ORDERED: IBUPROFEN 400 MG TAB PO PRN (12:04)
--- NOTE | 2019-11-20 13:00 | P.PN ---
Subjective Progress Note Date: 11/20/19 Principal diagnosis: Covid 19 pneumonia 34-year-old -[place] female patient of Dr. Durán, was hospitalized last week for COVID 19 infection. We saw the patient in consultation during that admission. At that time, she had a dry cough, shortness of breath, loss and body aches low-grade fever, she tested positive for COVID 19, CT angiogram did show bilateral multifocal multilobar groundglass infiltrates. patient was on room air, did not require supplemental oxygen, she had some limited loss of smell and taste, she was treated with Lovenox. patient improved, she was discharged home on 11/13/2019 on zinc supplements, and oral Pepcid.patient came into the emergency department on 11/18/2019 for evaluation of difficulty breathing, generalized fatigue, malaise, cough, and patient did have some diarrhea. She is experiencing some diffuse body aches.chest x-ray shows some new mild infiltrate or atelectasis at the right lung base compared to recent exam.CTA chest showed no evidence of pulmonary embolism, but did show bilateral patchy pulmonary airspace infiltrates and atelectasis that appears slightly worse than previous exam. CBC was within normal limits, d-dimer 0.88, electrolyte and renal profile were within normal limits, lactic acid is 1.2, proBNP was 30, pro-calcitonin is 0.04. patient is afebrile, room air pulse ox is 94%, blood pressure is 97/64. On 11/20/2019 patient seen in follow-up on a general medical surgical floor, she is resting quietly in bed, in no acute distress, breathing comfortably, no significant cough or congestion, room air pulse ox is 93-99%, hemodynamically stable, she's been afebrile, patient was initiated on a visit here yesterday, today is her day 2, today's labs have been reviewed, CBC was within normal limits with the exception of platelet count which was 545, BNP was within normal limits. No nausea vomiting or diarrhea. Patient is on oral Decadron, she is on Bentyl for diarrhea and GI cramps, he is on 40 of Lovenox twice daily, she is tolerating oral intake, IV fluids have been cut back to KVO Objective - Vital Signs Vital signs: Vital Signs Temp 97.5 F L 11/20/19 07:00 Pulse 78 11/20/19 08:00 Resp 17 11/20/19 08:00 BP 127/86 11/20/19 07:00 Pulse Ox 99 11/20/19 07:00 Intake & Output 11/19/19 11/20/19 11/20/19 18:59 06:59 18:59 Output Total 900 Balance -900 Output: Urine 900 Other: Voiding Method Toilet Toilet # Voids 3 1 # Bowel Movements 1 - Exam GENERAL EXAM: Alert, very pleasant, 34-year-old obese -[place] female, on room air, with a pulse ox of 99%, comfortable in no apparent distress. HEAD: Normocephalic/atraumatic. EYES: Normal reaction of pupils, equal size. Conjunctiva pink, sclera white. NOSE: Clear with pink turbinates. THROAT: No erythema or exudates. NECK: No masses, no JVD, no thyroid enlargement, no adenopathy. CHEST: No chest wall deformity. Symmetrical expansion. LUNGS: Equal air entry with no crackles, wheeze, rhonchi or dullness. CVS: Regular rate and rhythm, normal S1 and S2, no gallops, no murmurs, no rubs ABDOMEN: Soft, nontender. No hepatosplenomegaly, normal bowel sounds, no guardi ng or rigidity. EXTREMITIES: No clubbing, no edema, no cyanosis, 2+ pulses and upper and lower extremities. MUSCULOSKELETAL: Muscle strength and tone normal. SPINE: No scoliosis or deformity SKIN: No rashes CENTRAL NERVOUS SYSTEM: Alert and oriented -3. No focal deficits, tone is normal in all 4 extremities. PSYCHIATRIC: Alert and oriented -3. Appropriate affect. Intact judgment and insight. - Labs CBC & Chem 7: 11/20/19 05:38 11/20/19 05:38 Labs: Abnormal Lab Results - Last 24 Hours (Table) 11/19/19 11/20/19 11/20/19 Range/Units 19:46 05:38 05:38 Plt Count 545 H (150-450) k/uL Total Bilirubin 0.2 L (0.3-1.2) mg/dL Albumin/Globulin Ratio 1.46 L (1.60-3.17) g/dL Urine Appearance Cloudy H (Clear) Urine Nitrite Positive H (Negative) Urine Bacteria Rare H (None) /hpf Urine Mucus Rare H (None) /hpf Assessment and Plan Plan: Assessment: #1. Worsening dyspnea and chest pain, and slightly worsened findings of phillip ateral patchy pulmonary airspace infiltrates on the chest x-ray and CTA chest related to recent Hx of COVID 19 infection #2. Elevated inflammatory markers related to quit 19 pneumonia #3. Fatigue, diarrhea, dyspnea, cough, diffuse body aches, related to the above #4.Morbid obesity #5.Anxiety/depression #6. Never smoker Plan: Continue current medical treatment, the chest x-ray has been reviewed showing stable patchy bilateral airspace disease. He has been afebrile. follow-up inflammatory markers, continue with Remdesivir, DVT prophylaxis, GI prophylaxis, and Decadron I performed a history & physical examination of the patient and discussed their management with my nurse practitioner, Andreina Santiago. I reviewed the nurse practitioner's note and agree with the documented findings and plan of care. Lung sounds are positive for diminished breath sounds. The findings and the imp ression was discussed with the patient. I attest to the documentation by the nurse practitioner. Time with Patient: Less than 30
--- NOTE | 2019-11-20 20:35 | PN ---
PROGRESS NOTE DATE OF SERVICE: 11/20/2019 This 34-year-old woman who was admitted to COVID-19 pneumonia worsening was started on remdesivir. The patient is on day 3 of the infusion. The most recent chest x-ray showed some improvement. A 2D echo with Doppler was also done because of concerns about the patient's chest pain. Two-D echo showed ejection 50% to 60% and no other acute abnormality. The patient is being closely monitored. Past medical history reviewed. REVIEW OF SYSTEMS: CARDIOVASCULAR SYSTEM: No angina, palpitations. RESPIRATORY SYSTEM: As mentioned earlier. GI: No nausea, vomiting, diarrhea. : No dysuria or retention. NERVOUS SYSTEM: No numbness, weakness. CURRENT MEDICATIONS: Reviewed. They include Tylenol, Flexeril, Hexadrol, Lovenox, Pepcid, Motrin, Narcan, remdesivir, Orazinc. PHYSICAL EXAMINATION: Patient alert and oriented x3. Pulse 88, blood pressure 137/88, respirations 17, temperature 98.2, pulse ox 94% on room air. HEENT: Conjunctivae normal. NECK: No jugular venous distention. CARDIOVASCULAR SYSTEM: S1, S2 muffled. RESPIRATORY SYSTEM: Breath sounds diminished at the bases. A few scattered rhonchi and crackles. ABDOMEN: Soft, obese, non-tender. LEGS: No edema. No swelling. NERVOUS SYSTEM: No focal deficit. LABS: Platelets 145. Labs are noted. Albumin/globulin ratio is 1.5. UA is noted. Chest x-ray personally reviewed. ASSESSMENT: 1. Acute bilateral COVID-19 pneumonia with failure of outpatient treatment, worsening, on remdesivir. 2. Anterior chest pain, possible pleurisy. No evidence of pericardial effusion. 3. Diarrheal abdominal symptoms, possibly secondary to COVID-19. 4. Generalized weakness and tiredness secondary to COVID-19. 5. History of heart murmur. 6. History of section. 7. History of anxiety, depression. 8. Morbid obesity with body mass index of 44.6. 9. Increased D-dimer. 10.Hyponatremia. 11.Increased LDH. 12.Elevated CRP secondary to COVID. 13.FULL CODE. RECOMMENDATIONS AND DISCUSSION: I recommend to continue current medications, continue with the monitoring, symptomatic treatment. Continue the remdesivir. Otherwise, repeat labs. The patient is keen on going home, but I would recommend to finish the course of remdesivir at this time. Discussed with the patient at length. Closely follow. Some of the exam findings may be shared because of COVID. Otherwise we will continue to monitor. Prognosis extremely guarded. Further recommendations to follow. A copy of this dictation is being forwarded to Dr. Durán, who is the primary physician. MMIRAML / MONYN: [id number] /
[2019-11-20] MEDS: PROMETHAZINE HCL 6.25 MG/5 ML CUP PO PRN (21:13)
[2019-11-20] MEDS: SODIUM CHLORIDE 0.9% 1,000 ML IV SCH (21:17)
--- NOTE | 2019-11-21 02:08 | PN ---
PROGRESS NOTE DATE OF SERVICE: 11/20/2019 REASON FOR FOLLOWUP: Acute COVID-19 pneumonia. INTERVAL HISTORY: The patient is currently afebrile. The patient is breathing more comfortably. Patient denies having any chest pain. Minimal cough. No nausea, no vomiting. No abdominal pain, no diarrhea. PHYSICAL EXAMINATION: Blood pressure is 125/83 with a pulse of 81, temperature 98.1. She is 97% on room air. General description is a middle-aged female lying in bed in no distress. RESPIRATORY SYSTEM: Unlabored breathing. No wheeze or crackle. ABDOMEN: Soft. EXTREMITIES: No edema of the feet. LABS: Hemoglobin is 12.1, white count 7.3, BUN of 9, creatinine 0.7. DIAGNOSTIC IMPRESSION AND PLAN: Patient with acute COVID-19 pneumonia currently being treated with remdesivir, Lovenox, dexamethasone and zinc. Chest x-ray has been stable. Patient seemed to have stabilized to continue and monitor clinical course closely. MMODL / IJN: [id number] /
[2019-11-21] MEDS: ALBUTEROL HFA INHALER INHALATION SCH ×6 (02:26→23:19)
[2019-11-21 07:14] LABS: Basophils # (A) 0.1 k/uL (0-0.2); Basophils % (A) 0 %; Eosinophils % (A) 0 %; HGB 11.7 gm/dL (11.4-16.0); Lymphocytes # (A) 2.5 k/uL (1.0-4.8); Lymphocytes % (A) 22 %; MCH 27.8 pg (25.0-35.0); MCHC 31.6 g/dL (31.0-37.0); MCV 88.2 fL (80.0-100.0); Mean Platelet Volume 6.7; Monocytes # (A) 0.8 k/uL (0-1.0); Monocytes % (A) 7 %; Neutrophils # (A) 7.7 k/uL (1.3-7.7); Neutrophils % (A) 68 %; Platelet Count 682 k/uL (150-450); RDW 13.1 % (11.5-15.5); WBC 11.3 k/uL (3.8-10.6)
[2019-11-21] MEDS: SERTRALINE 100 MG TAB PO SCH (07:52)
[2019-11-21] MEDS: FAMOTIDINE 20 MG TAB PO SCH ×2 (07:52→21:16)
[2019-11-21] MEDS: dexAMETHasone 2 MG TAB PO SCH (07:52)
[2019-11-21] MEDS: ENOXAPARIN 40 MG/0.4 ML SYRINGE SQ SCH ×2 (07:53→21:16)
[2019-11-21] MEDS: ZINC SULFATE 220 MG CAP PO SCH (07:54)
[2019-11-21] MEDS: REMDESIVIR (EUA) 100 MG in SODIUM CHLORIDE 0.9% 250 ML IVPB SCH (09:46)
[2019-11-21 11:17] LABS: African American GFR (CKD) 110.7 (60.0-200.0); Albumin/Globulin Ratio 1.48 (1.60-3.17); Anion Gap 8.4 mmol/L (4.00-12.00); Calcium 9.4 mg/dL (8.7-10.3); Carbon Dioxide 26.6 mmol/L (21.6-31.8); Globulin 2.7 g/dL (1.6-3.3); Non-African American GFR(CKD) 95.5 (60.0-200.0); Potassium 4.8 mmol/L (3.5-5.5); Total Bilirubin 0.2 mg/dL (0.2-1.2); Total Protein 6.7 g/dL (6.2-8.2)
--- NOTE | 2019-11-21 13:14 | P.PN ---
Subjective Progress Note Date: 11/21/19 Principal diagnosis: Covid 19 pneumonia 34-year-old -[place] female patient of Dr. Durán, was hospitalized last week for COVID 19 infection. We saw the patient in consultation during that admission. At that time, she had a dry cough, shortness of breath, loss and body aches low-grade fever, she tested positive for COVID 19, CT angiogram did show bilateral multifocal multilobar groundglass infiltrates. patient was on room air, did not require supplemental oxygen, she had some limited loss of smell and taste, she was treated with Lovenox. patient improved, she was discharged home on 11/13/2019 on zinc supplements, and oral Pepcid.patient came into the emergency department on 11/18/2019 for evaluation of difficulty breathing, generalized fatigue, malaise, cough, and patient did have some diarrhea. She is experiencing some diffuse body aches.chest x-ray shows some new mild infiltrate or atelectasis at the right lung base compared to recent exam.CTA chest showed no evidence of pulmonary embolism, but did show bilateral patchy pulmonary airspace infiltrates and atelectasis that appears slightly worse than previous exam. CBC was within normal limits, d-dimer 0.88, electrolyte and renal profile were within normal limits, lactic acid is 1.2, proBNP was 30, pro-calcitonin is 0.04. patient is afebrile, room air pulse ox is 94%, blood pressure is 97/64. On 11/20/2019 patient seen in follow-up on a general medical surgical floor, she is resting quietly in bed, in no acute distress, breathing comfortably, no significant cough or congestion, room air pulse ox is 93-99%, hemodynamically stable, she's been afebrile, patient was initiated on a visit here yesterday, today is her day 2, today's labs have been reviewed, CBC was within normal limits with the exception of platelet count which was 545, BNP was within normal limits. No nausea vomiting or diarrhea. Patient is on oral Decadron, she is on Bentyl for diarrhea and GI cramps, he is on 40 of Lovenox twice daily, she is tolerating oral intake, IV fluids have been cut back to KVO On 11/21/2019 patient seen in follow-up on medical surgical floor. Breathing comfortably, no fever, no cough, no chest pain, vital signs have been stable overnight, diarrhea has improved, no abdominal pain. Patient is receiving her third dose of Remdesivir. Remains on Decadron, prophylactic doses of Lovenox. His follow-up chest x-ray shows relatively stable patchy bilateral airspace disease. Clinically patient has been stable. Objective - Vital Signs Vital signs: Vital Signs Temp 98.3 F 11/21/19 08:05 Pulse 62 11/21/19 08:05 Resp 17 11/21/19 08:05 BP 138/77 11/21/19 08:05 Pulse Ox 98 11/21/19 08:05 Intake & Output 11/20/19 11/21/19 11/21/19 18:59 06:59 18:59 Other: Voiding Method Toilet Toilet Toilet # Voids 3 - Exam GENERAL EXAM: Alert, very pleasant, 34-year-old obese -[place] female, on room air, with a pulse ox of 99%, comfortable in no apparent distress. HEAD: Normocephalic/atraumatic. EYES: Normal reaction of pupils, equal size. Conjunctiva pink, sclera white. NOSE: Clear with pink turbinates. THROAT: No erythema or exudates. NECK: No masses, no JVD, no thyroid enlargement, no adenopathy. CHEST: No chest wall deformity. Symmetrical expansion. LUNGS: Equal air entry with no crackles, wheeze, rhonchi or dullness. CVS: Regular rate and rhythm, normal S1 and S2, no gallops, no murmurs, no rubs ABDOMEN: Soft, nontender. No hepatosplenomegaly, normal bowel sounds, no guarding or rigidity. EXTREMITIES: No clubbing, no edema, no cyanosis, 2+ pulses and upper and lower extremities. MUSCULOSKELETAL: Muscle strength and tone normal. SPINE: No scoliosis or deformity SKIN: No rashes CENTRAL NERVOUS SYSTEM: Alert and oriented -3. No focal deficits, tone is normal in all 4 extremities. PSYCHIATRIC: Alert and oriented -3. Appropriate affect. Intact judgment and insight. - Labs CBC & Chem 7: 11/21/19 06:34 11/21/19 06:34 Labs: Abnormal Lab Results - Last 24 Hours (Table) 11/20/19 11/21/19 11/21/19 Range/Units 05:38 06:34 06:34 WBC 11.3 H (3.8-10.6) k/uL Plt Count 682 H (150-450) k/uL C-Reactive Protein 4.4 H (0.0-0.8) mg/dL Albumin/Globulin Ratio 1.48 L (1.60-3.17) g/dL Assessment and Plan Plan: Assessment: #1. Worsening dyspnea and chest pain, and slightly worsened findings of bilateral patchy pulmonary airspace infiltrates on the chest x-ray and CTA chest related to recent Hx of COVID 19 infection #2. Elevated inflammatory markers related to quit 19 pneumonia #3. Fatigue, diarrhea, dyspnea, cough, diffuse body aches, related to the above #4.Morbid obesity #5.Anxiety/depression #6. Never smoker Plan: Patient is doing well, no acute events overnight, afebrile, inflammatory markers have trended down, patient has received 3 days' worth of Remdesivir, she would like to go home today, from pulmonary perspective she can be considered for discharge home today if cleared by medicine. I performed a history & physical examination of the patient and discussed their management with my nurse practitioner, Andreina Santiago. I reviewed the nurse practitioner's note and agree with the documented findings and plan of care. Lung sounds are positive for diminished breath sounds. The findings and the impression was discussed with the patient. I attest to the documentation by the nurse practitioner. Time with Patient: Less than 30
--- NOTE | 2019-11-21 14:13 | XR ---
EXAMINATION TYPE: XR chest 1V portable DATE OF EXAM: 11/21/2019 CLINICAL HISTORY: Covid 19 TECHNIQUE: Portable upright view of the chest COMPARISON: 11/20/2019 chest radiograph FINDINGS: The cardiomediastinal silhouette is within normal limits for size. Pulmonary vasculature i s normal. There is improved aeration of the bilateral lungs with a few persistent patchy airspace opa cities. Blunting of the bilateral costophrenic angles may be overlapping soft tissue or represent sma ll pleural effusions. No pneumothorax seen. The osseous structures are intact. IMPRESSION: Improved aeration of the bilateral lungs versus 11/20/2019, with mild persistent patchy a irspace opacities bilaterally.
--- NOTE | 2019-11-21 14:52 | PN ---
PROGRESS NOTE DATE OF SERVICE: 11/21/2019 REASON FOR FOLLOWUP: COVID-19 infection. INTERVAL HISTORY: The patient is currently afebrile. Patient is breathing comfortably on room air. Patient denies having any chest pain. No shortness of breath. Minimal cough. No abdominal pain. Diarrhea has improved. PHYSICAL EXAMINATION: Blood pressure 132/77, with a pulse of 62, temperature 98.3, she is 98% room air the patient is a middle-aged female up in the bed in no distress respiratory system: Unlabored breathing, decreased intensity of breath sounds. No wheeze. Heart S1, S2. Regular rate and rhythm. ABDOMEN: Soft, no tenderness. LABS: Hemoglobin 11.7, white count 9.3, BUN of 12, creatinine 0.8. DIAGNOSTIC IMPRESSION AND PLAN: 1. Patient with acute COVID-19 infection with overall clinical improvement. 2. GI symptoms. She is breathing comfortably on room air and GI symptom has improved. May finish therapy short course of oral dexamethasone and rhythm extremities: After today's dose, plans were discussed with Pulmonary. Continue supportive care. MMODL / IJN: [id number] /
--- NOTE | 2019-11-21 16:13 | PN ---
PROGRESS NOTE DATE OF SERVICE: 11/21/2011. This is a 34-year-old woman is admitted with severe COVID-19 pneumonia, also had receiving . The patient is making significant improvement. No chest pain. No palpitations. Occasional cough is reported. PHYSICAL EXAMINATION: Alert and oriented x3. Pulse 62, blood pressure 130/70, respirations 17, temperature 98.3, pulse ox 98% on room air. HEENT: Conjunctivae normal. NECK: No jugular venous distension. CARDIOVASCULAR: S1, S2, muffled. RESPIRATION: Breath sounds diminished at the bases, a few scattered rhonchi. ABDOMEN: Soft, nontender. NERVOUS SYSTEM: No focal deficits. Some other examination findings may be shared because of the COVID-19. LABS: WBC 11.3, hemoglobin 11.7, and other labs are noted. ASSESSMENT: 1. Acute bilateral COVID-19 pneumonia, initially viral pneumonia with failure of outpatient treatment, worsening, , severe. 2. Anterior chest pain, possible pleurisy. No evidence of pericardial effusion. 3. Diarrhea, abdominal symptoms, possibly secondary to COVID-19. 4. Generalized weakness and tiredness secondary to Coumadin 19. 5. History of heart murmur. 6. History of section. 7. History of anxiety, depression. 8. Morbid obesity with body mass index of 44.6. 9. Increased D-dimer. 10.Hyponatremia. 11.Increased LDH. 12.Elevated CRP secondary to COVID. 13.FULL CODE. RECOMMENDATION: Recommend to continue current medication, continue to monitor. Symptomatic treatment. Otherwise at this time I would recommend continue the course , repeat labs and closely monitor. Prognosis guarded. Further recommendations to follow. MMODL / IJN: [id number] / MTDD
[2019-11-21] MEDS: PROMETHAZINE HCL 6.25 MG/5 ML CUP PO PRN (21:16)
[2019-11-21] MEDS: SODIUM CHLORIDE 0.9% 1,000 ML IV SCH (21:20)
[2019-11-22] MEDS: ALBUTEROL HFA INHALER INHALATION SCH ×5 (03:39→20:45)
[2019-11-22 06:52] LABS: Basophils # (A) 0.1 k/uL (0-0.2); Basophils % (A) 0 %; Eosinophils # (A) 0.1 k/uL (0-0.7); Eosinophils % (A) 0 %; HCT 37.1 % (34.0-46.0); HGB 11.7 gm/dL (11.4-16.0); Lymphocytes # (A) 3.3 k/uL (1.0-4.8); Lymphocytes % (A) 25 %; MCH 27.9 pg (25.0-35.0); MCHC 31.5 g/dL (31.0-37.0); MCV 88.8 fL (80.0-100.0); Mean Platelet Volume 6.6; Monocytes # (A) 0.8 k/uL (0-1.0); Monocytes % (A) 6 %; Neutrophils % (A) 67 %; Platelet Count 686 k/uL (150-450); RBC 4.18 m/uL (3.80-5.40); RDW 13.4 % (11.5-15.5); WBC 13.4 k/uL (3.8-10.6)
[2019-11-22] MEDS: FAMOTIDINE 20 MG TAB PO SCH ×2 (09:11→20:11)
[2019-11-22] MEDS: ZINC SULFATE 220 MG CAP PO SCH (09:11)
[2019-11-22] MEDS: dexAMETHasone 2 MG TAB PO SCH (09:11)
[2019-11-22] MEDS: ENOXAPARIN 40 MG/0.4 ML SYRINGE SQ SCH ×2 (09:11→20:11)
[2019-11-22] MEDS: SERTRALINE 100 MG TAB PO SCH (09:11)
[2019-11-22] MEDS: ACETAMINOPHEN TAB 325 MG TAB PO PRN (09:35)
[2019-11-22] MEDS: REMDESIVIR (EUA) 100 MG in SODIUM CHLORIDE 0.9% 250 ML IVPB SCH (09:35)
[2019-11-22 09:56] LABS: African American GFR (CKD) 110.7 (60.0-200.0); Albumin 3.9 g/dL (3.80-4.90); Albumin/Globulin Ratio 1.39 (1.60-3.17); Anion Gap 7.7 mmol/L (4.00-12.00); BUN/Creat Ratio 16.25 Ratio (12.00-20.00); Calcium 9.5 mg/dL (8.7-10.3); Carbon Dioxide 26.3 mmol/L (21.6-31.8); Globulin 2.8 g/dL (1.6-3.3); Non-African American GFR(CKD) 95.5 (60.0-200.0); Potassium 4.2 mmol/L (3.5-5.5); Total Bilirubin 0.2 mg/dL (0.2-1.2); Total Protein 6.7 g/dL (6.2-8.2)
--- NOTE | 2019-11-22 14:56 | PN ---
PROGRESS NOTE DATE OF SERVICE: 11/22/2019 This is a 34-year-old woman was admitted with COVID-19, is receiving remdesivir_. Patient had bilateral pneumonia. Chest is improving, no chest pain. No palpitations. No fever. A fifth dose of remdes is pending for tomorrow. PHYSICAL EXAMINATION: Alert and oriented x3. Pulse 72, blood pressure 120/77, respiration 20, temperature 98 degrees, pulse ox 98% on room air. HEENT: Conjunctivae normal. NECK: No jugular venous distention. CARDIOVASCULAR SYSTEM: S1, S2, muffled. RESPIRATION: Breath sounds diminished at the bases, no rhonchi, no crackles. ABDOMEN: Soft, nontender. LEGS: No edema. No swelling. NERVOUS SYSTEM: No focal deficits. LABS: WBC is 13.4 and other labs are noted. ASSESSMENT: 1. Acute bilateral COVID-19 pneumonia, possibly viral pneumonia and failure of outpatient treatment, worsening severe on remdesivir. 2. Anterior chest pain, possibly pleurisy. No evidence of pericardial effusion. 3. Diarrhea, abdominal symptoms, possibly secondary to COVID-19. 4. Generalized weakness and tiredness, possibly secondary to COVID-19. 5. History of heart murmur. 6. History of section. 7. History of anxiety, depression. 8. Morbid obesity with body mass index of 44.6. 9. D-dimer. 10.Hyponatremia. 11.Increased LDH. 12.Elevated CRP secondary to COVID. 13.FULL CODE. RECOMMENDATION: Recommend to continue current medications, continue with the monitoring, symptomatic treatment. Continue the remdesivir, continue the bronchodilators. Continue the rest of medications, steroids. Monitor labs closely. Guarded prognosis. Further recommendations to follow. MMODL / IJN: [id number] / MTDBessy
--- NOTE | 2019-11-22 17:23 | PN ---
PROGRESS NOTE DATE OF SERVICE: 11/22/2019 REASON FOR FOLLOWUP: Acute COVID-19 infection. INTERVAL HISTORY: The patient is currently afebrile. The patient is breathing comfortably. The patient denies having any chest pain or shortness of breath. Minimal cough. No vomiting. No abdominal pain or diarrhea. PHYSICAL EXAMINATION: Her blood pressure is 120/77, pulse of 72, temperature 98. She is 98% on room air. General description is a middle-aged female up in the bed in no distress. RESPIRATORY SYSTEM: Unlabored breathing. ABDOMEN: Soft. EXTREMITIES: No edema of the feet. LABS/IMAGING: Hemoglobin is 11.7, white count 13.4, creatinine 0.8. Chest x-ray did show improvement. DIAGNOSTIC IMPRESSION AND PLAN: Patient with acute COVID-19 infection. Predominant symptom has been GI. Chest x-ray did show however, the patient is not requiring any supplemental oxygen and has shown overall clinical improvement. She will finish her remdesivir; last dose today, along with Lovenox, dexamethasone and zinc. Continue with supportive care. MMODL / IJN: [id number] /
[2019-11-22] MEDS ORDERED: ZOLPIDEM 5 MG TAB PO PRN (20:54)
[2019-11-22] MEDS: SODIUM CHLORIDE 0.9% 1,000 ML IV SCH (22:48)
[2019-11-23] MEDS: ALBUTEROL HFA INHALER INHALATION SCH ×4 (01:25→12:21)
--- NOTE | 2019-11-23 07:18 | XR ---
EXAMINATION TYPE: XR chest 1V portable DATE OF EXAM: 11/23/2019 COMPARISON: 11/21/2019 HISTORY: Cough TECHNIQUE: Single frontal view of the chest is obtained. FINDINGS: Heart is enlarged. Slightly coarsened interstitium pleural effusion or pneumothorax. Subse gmental changes at the lung bases are stable. IMPRESSION: 1. Stable x-ray demonstrates cardiomegaly with basilar atelectasis or infiltrate. Interstitium may be on the basis of mild interstitial pneumonitis.
[2019-11-23] MEDS: ENOXAPARIN 40 MG/0.4 ML SYRINGE SQ SCH (07:45)
[2019-11-23] MEDS: ZINC SULFATE 220 MG CAP PO SCH (07:46)
[2019-11-23] MEDS: SERTRALINE 100 MG TAB PO SCH (07:46)
[2019-11-23] MEDS: FAMOTIDINE 20 MG TAB PO SCH (07:46)
[2019-11-23] MEDS: dexAMETHasone 2 MG TAB PO SCH (07:46)
[2019-11-23 08:43] VITALS: BP 120/84; PULSE 74; RESP 20; TEMP 97.9
[2019-11-23] MEDS: REMDESIVIR (EUA) 100 MG in SODIUM CHLORIDE 0.9% 250 ML IVPB SCH (09:33)
--- NOTE | 2019-11-23 13:59 | PN ---
PROGRESS NOTE DATE OF SERVICE: 11/23/2019 REASON FOR FOLLOWUP: Acute COVID-19 infection. INTERVAL HISTORY: Patient is currently afebrile. Patient is breathing comfortably. Patient denies having any chest pain. No shortness of breath or cough. No nausea, no vomiting, no abdominal pain. No diarrhea. Wants to go home. PHYSICAL EXAMINATION: Blood pressure 120/84 with a pulse of 74, temperature 97.9, she is 97% room air. General description is a middle-aged female up in the bed in no distress. Respiratory system: Unlabored breathing, clear to auscultation. Heart S1, S2. Regular rate and rhythm. Abdomen is soft, no tenderness. LABS: No new labs have been obtained today. Chest x-ray which shows stable finding. DIAGNOSTIC IMPRESSION AND PLAN: Patient with acute COVID-19 infection predominant gastrointestinal symptoms that seem to have improved. Patient seemed to have shown overall clinical improvement and complete a 5-day course of linezolid. Continue with course of dexamethasone on discharge. Continue supportive care. MMODL / IJN: [id number] /
--- NOTE | 2019-11-23 22:41 | DS ---
DISCHARGE SUMMARY DATE OF SERVICE: 11/23/2019 FINAL DIAGNOSES: 1. Acute bilateral Covid-19 pneumonia possibly viral pneumonia with failure of outpatient treatment, worsening severe treated with Remdesivir improved. 2. Anterior chest pain, possible pleurisy. No evidence of pericardial effusion. 3. Diarrhea, abdominal symptoms possibly secondary to Covid-19. 4. Generalized weakness and tiredness possibly secondary to Covid-19. 5. History of heart murmur. 6. History of section. 7. History of anxiety, depression. 8. Morbid obesity with body mass index of 44.6. 9. D-dimer. 10.Hyponatremia. 11.Increased LDH. 12.Elevated CRP secondary to Covid 19. 13.FULL CODE. DISCHARGE DISPOSITION: The patient being discharged in stable condition with guarded prognosis. Total time taken: 35 minutes. HISTORY OF PRESENT ILLNESS: This 34-year-old woman with a past medical history of multiple medical problems admitted with acute bilateral Covid-19 pneumonia. Patient treated symptomatically. Patient was also given Remdesivir. The patient improved significantly. Was seen by Infectious Disease and Pulmonary. Patient cleared for discharge. The chest x-ray showed much improvement. On exam, vitals are stable. Cardiovascular: S1, S2. Abdomen soft. Nervous system: No focal deficits. DISCHARGE INSTRUCTIONS/MEDICATION: 1. Diet is cardiac diet. 2. Activity limited until followup. 3. Follow up with Dr. Durán in 1-2 days. 4. Follow up with Infectious Disease and Pulmonary as recommended. Medications are: 1. Bentyl 10 mg p.r.n. 2. Flexeril p.r.n. 3. Motrin p.r.n. as before. 4. Promethazine p.r.n. as before. 5. Zoloft 100 mg p.o. daily. 6. Hexadrol 6 mg daily for 5 more days. 7. [place] 220 mg daily. 8. Pepcid 20 mg p.o. b.i.d. 9. Ventolin 2 puffs t.i.d. and p.r.n. Followup Covid testing probably in [address] Durán. Once again the patient discharged in stable condition. Guarded prognosis. MMODL / IJN: [id number] /
== END 2019-11-23 13:20 | disposition home or self-care (01) | DRG 177 ==
LOC: EC 18:05 → 4SSUR 21:12
PROVIDERS: ADMIT Hospitalist; ATTEND Hospitalist
DX: U07.1 COVID-19 (principal); J12.89 Other viral pneumonia; E87.1 Hypo-osmolality and hyponatremia; Z68.41 Body mass index [BMI] 40.0-44.9, adult; E66.01 Morbid (severe) obesity due to excess calories; R79.89 Other specified abnormal findings of blood chemistry; F41.9 Anxiety disorder, unspecified; F32.9 Major depressive disorder, single episode, unspecified; D72.810 Lymphocytopenia; R19.7 Diarrhea, unspecified; R74.0 Nonspecific elevation of levels of transaminase and lactic acid dehydrogenase [LDH]; R79.82 Elevated C-reactive protein (CRP); R01.1 Cardiac murmur, unspecified; R09.1 Pleurisy; Z79.899 Other long term (current) drug therapy; Z98.891 History of uterine scar from previous surgery
CPT/HCPCS: 36415; 71045; 71275; 80053; 81001; 82728; 83605; 83615; 83735; 83880; 84145; 85025; 85379; 85610; 85730; 86140; 93005; 93306; 94640; 96361; 96374; 96375; 99285

== ENCOUNTER → 2019-12-02 | Outpatient (CLI) | payer OTHER | END | disposition home or self-care (01) | LOC: LABWHC1 14:24 | PROVIDERS: ATTEND Internal Medicine | DX: Z20.828 Contact with and (suspected) exposure to other viral communicable diseases (principal) | CPT/HCPCS: U0003; C9803 ==

== ENCOUNTER 2020-04-08 13:48 | Emergency (ER) | payer OTHER ==
--- NOTE | 2020-04-08 14:19 | ED ---
General Adult HPI - General Chief complaint: Shortness of Breath Stated complaint: SOB,dizziness, stomach pain Time Seen by Provider: 04/08/20 13:50 Source: patient, RN notes reviewed, old records reviewed Mode of arrival: ambulatory Limitations: no limitations - History of Present Illness Initial comments: This is a 34-year-old female presents emergency department stating that on Monday she started being short of breath and it seems worse when she goes upstairs. Patient initially said she had chest pain but when she pointed to the area that was painful that was the epigastric region. Patient states she has nausea but no vomiting.. Patient states she has had intermittent episodes of diarrhea. Patient denies any palpitations. Patient states it feels like the same symptoms she had when she had COVID in November. Patient denies any cough. Patient denies any recent injury or trauma. Patient denies any fever or chills. - Related Data Home Medications Medication Instructions Recorded Confirmed Sertraline [Zoloft] 100 mg PO DAILY 02/07/18 11/18/19 Cyclobenzaprine [Flexeril] 10 mg PO BID PRN 11/12/19 11/18/19 Dicyclomine [Bentyl] 10 - 20 mg PO TID PRN 11/12/19 11/18/19 Ibuprofen [Motrin] 800 mg PO TID PRN 11/12/19 11/18/19 Promethazine 6.25MG/5Ml [Phenergan 5 - 10 ml PO QID PRN 11/12/19 11/18/19 Syrup] Previous Rx's Medication Instructions Recorded Famotidine [Pepcid] 20 mg PO BID #10 tab 11/13/19 Albuterol Inhaler [Ventolin Hfa 2 puff INHALATION RT-Q4H #1 11/23/19 Inhaler] Zinc Sulfate [Orazinc] 220 mg PO DAILY #30 cap 11/23/19 dexAMETHasone [Hexadrol] 6 mg PO DAILY #5 tab 11/23/19 Allergies Allergy/AdvReac Type Severity Reaction Status Date / Time No Known Allergies Allergy Verified 04/08/20 13:53 Review of Systems ROS Statement: Those systems with pertinent positive or pertinent negative responses have been documented in the HPI. ROS Other: All systems not noted in ROS Statement are negative. Past Medical History Past Medical History: No Reported History Additional Past Medical History / Comment(s): heart murmur, Covid+ November 2019 History of Any Multi-Drug Resistant Organisms: None Reported Past Surgical History: Section Past Anesthesia/Blood Transfusion Reactions: No Reported Reaction Past Psychological History: Anxiety, Depression Smoking Status: Never smoker Past Alcohol Use History: None Reported Past Drug Use History: None Reported - Past Family History Father Family Medical History: No Reported History General Exam - General Exam Comments Initial Comments: GENERAL: Patient is well-developed and well-nourished. Patient is nontoxic and well- hydrated and is in no acute distress. ENT: Neck is soft and supple. No significant lymphadenopathy is noted. Oropharynx is clear. Moist mucous membranes. Neck has full range of motion without eliciting any pain. EYES: The sclera were anicteric and conjunctiva were pink and moist. Extraocular movements were intact and pupils were equal round and reactive to light. Eyelids were unremarkable. PULMONARY: Unlabored respirations. Good breath sounds bilaterally. No audible rales rhonchi or wheezing was noted. CARDIOVASCULAR: There is a regular rate and rhythm without any murmurs gallops or rubs. ABDOMEN: Soft and nontender with normal bowel sounds. SKIN: Skin is clear with no lesions or rashes and otherwise unremarkable. NEUROLOGIC: Patient is alert and oriented x3. Cranial nerves II through XII are grossly intact. Motor and sensory are also intact. Normal speech, volume and content. Symmetrical smile. Cerebellar exam grossly intact MUSCULOSKELETAL: Normal extremities with adequate strength and full range of motion. No lower extremity swelling or edema. No calf tenderness. LYMPHATICS: No significant lymphadenopathy is noted PSYCHIATRIC: Normal psychiatric evaluation. Limitations: no limitations Course Vital Signs 04/08/20 04/08/20 13:50 15:30 Temperature 98.8 F Pulse Rate 95 82 Respiratory 18 20 Rate Blood Pressure 134/96 131/81 O2 Sat by Pulse 99 100 Oximetry Medical Decision Making - Medical Decision Making EKG shows normal sinus rhythm at [address] interval is on a 44 QRS is 82 QT inte rval 390 QTC is 460. Patient's EKG shows no ST segment elevation or depression. Chest x-ray shows no acute abnormality. Patient's CT shows no pulmonary embolism. Patient was told to follow-up with primary medical care doctor to further evaluate her pulmonary hypertension. - Lab Data Result diagrams: 04/08/20 14:21 04/08/20 14:21 Lab Results 04/08/20 04/08/20 04/08/20 Range/Units 14:21 14:21 14:21 WBC 10.6 (3.8-10.6) k/uL RBC 4.82 (3.80-5.40) m/uL Hgb 13.4 (11.4-16.0) gm/dL Hct 40.8 (34.0-46.0) % MCV 84.7 (80.0-100.0) fL MCH 27.9 (25.0-35.0) pg MCHC 33.0 (31.0-37.0) g/dL RDW 13.9 (11.5-15.5) % Plt Count 429 (150-450) k/uL MPV 6.5 Neutrophils % 67 % Lymphocytes % 24 % Monocytes % 4 % Eosinophils % 4 % Basophils % 0 % Neutrophils # 7.0 (1.3-7.7) k/uL Lymphocytes # 2.5 (1.0-4.8) k/uL Monocytes # 0.4 (0-1.0) k/uL Eosinophils # 0.4 (0-0.7) k/uL Basophils # 0.0 (0-0.2) k/uL PT 9.8 (9.0-12.0) sec INR 0.9 (<1.2) APTT 22.5 (22.0-30.0) sec D-Dimer 1.13 H (<0.60) mg/L FEU Sodium 139 (137-145) mmol/L Potassium 4.4 (3.5-5.1) mmol/L Chloride 103 (98-107) mmol/L Carbon Dioxide 29 (22-30) mmol/L Anion Gap 7 mmol/L BUN 13 (7-17) mg/dL Creatinine 0.90 (0.52-1.04) mg/dL Est GFR (CKD-EPI)AfAm >90 (>60 ml/min/1.73 sqM) Est GFR (CKD-EPI)NonAf 84 (>60 ml/min/1.73 sqM) Glucose 88 (74-99) mg/dL Calcium 10.4 H (8.4-10.2) mg/dL Total Bilirubin 0.4 (0.2-1.3) mg/dL AST 29 (14-36) U/L ALT 23 (4-34) U/L Alkaline Phosphatase 75 (38-126) U/L Troponin I (0.000-0.034) ng/mL Total Protein 8.0 (6.3-8.2) g/dL Albumin 4.6 (3.5-5.0) g/dL Lipase 58 (23-300) U/L Coronavirus (PCR) (Not Detectd) 04/08/20 04/08/20 Range/Units 14:21 14:21 WBC (3.8-10.6) k/uL RBC (3.80-5.40) m/uL Hgb (11.4-16.0) gm/dL Hct (34.0-46.0) % MCV (80.0-100.0) fL MCH (25.0-35.0) pg MCHC (31.0-37.0) g/dL RDW (11.5-15.5) % Plt Count (150-450) k/uL MPV Neutrophils % % Lymphocytes % % Monocytes % % Eosinophils % % Basophils % % Neutrophils # (1.3-7.7) k/uL Lymphocytes # (1.0-4.8) k/uL Monocytes # (0-1.0) k/uL Eosinophils # (0-0.7) k/uL Basophils # (0-0.2) k/uL PT (9.0-12.0) sec INR (<1.2) APTT (22.0-30.0) sec D-Dimer (<0.60) mg/L FEU Sodium (137-145) mmol/L Potassium (3.5-5.1) mmol/L Chloride (98-107) mmol/L Carbon Dioxide (22-30) mmol/L Anion Gap mmol/L BUN (7-17) mg/dL Creatinine (0.52-1.04) mg/dL Est GFR (CKD-EPI)AfAm (>60 ml/min/1.73 sqM) Est GFR (CKD-EPI)NonAf (>60 ml/min/1.73 sqM) Glucose (74-99) mg/dL Calcium (8.4-10.2) mg/dL Total Bilirubin (0.2-1.3) mg/dL AST (14-36) U/L ALT (4-34) U/L Alkaline Phosphatase (38-126) U/L Troponin I <0.012 (0.000-0.034) ng/mL Total Protein (6.3-8.2) g/dL Albumin (3.5-5.0) g/dL Lipase (23-300) U/L Coronavirus (PCR) Not Detected (Not Detectd) Disposition Clinical Impression: Nausea, Epigastric abdominal pain, Pulmonary hypertension Disposition: HOME SELF-CARE Condition: Good Instructions (If sedation given, give patient instructions): Abdominal Pain (ED), Pulmonary Arterial Hypertension (ED) Additional Instructions: atient is to follow-up with her medical care doctor to further evaluate her pulmonary hypertension. Is patient prescribed a controlled substance at d/c from ED?: No Referrals: Raymond Durán MD [Primary Care Provider] - 1-2 days Time of Disposition: 15:55
[2020-04-08 14:42] LABS: Basophils % (A) 0 %; Eosinophils # (A) 0.4 k/uL (0-0.7); Eosinophils % (A) 4 %; HCT 40.8 % (34.0-46.0); HGB 13.4 gm/dL (11.4-16.0); Lymphocytes # (A) 2.5 k/uL (1.0-4.8); Lymphocytes % (A) 24 %; MCH 27.9 pg (25.0-35.0); MCV 84.7 fL (80.0-100.0); Mean Platelet Volume 6.5; Monocytes # (A) 0.4 k/uL (0-1.0); Monocytes % (A) 4 %; Neutrophils % (A) 67 %; Platelet Count 429 k/uL (150-450); RBC 4.82 m/uL (3.80-5.40); RDW 13.9 % (11.5-15.5); WBC 10.6 k/uL (3.8-10.6)
--- NOTE | 2020-04-08 14:43 | XR ---
EXAMINATION TYPE: XR chest 2V DATE OF EXAM: 04/08/2020 COMPARISON: Prior chest x-ray 11/23/2019 HISTORY: Difficulty breathing, shortness of breath TECHNIQUE: Frontal and lateral views of the chest are obtained. FINDINGS: There is no focal air space opacity, pleural effusion, or pneumothorax seen. The cardiac silhouette size is within normal limits. The osseous structures are intact, there is a spinal curva ture. IMPRESSION: No acute cardiopulmonary process.
[2020-04-08 14:52] LABS: ALT 23 U/L (4-34); AST 29 U/L (14-36); African American GFR (CKD) >90 (>60 ml/min/1.73 sqM); Albumin 4.6 g/dL (3.5-5.0); Alkaline Phosphatase 75 U/L (38-126); Anion Gap 7 mmol/L; Blood Urea Nitrogen 13 mg/dL (7-17); Calcium 10.4 mg/dL (8.4-10.2); Carbon Dioxide 29 mmol/L (22-30); Chloride 103 mmol/L (98-107); Glucose 88 mg/dL (74-99); INR 0.9 (<1.2); Lipase 58 U/L (23-300); Non-African American GFR(CKD) 84 (>60 ml/min/1.73 sqM); Partial Thromboplastin Time 22.5 sec (22.0-30.0); Potassium 4.4 mmol/L (3.5-5.1); Prothrombin Time 9.8 sec (9.0-12.0); Sodium 139 mmol/L (137-145); Total Bilirubin 0.4 mg/dL (0.2-1.3)
[2020-04-08 14:54] LABS: D-Dimer 1.13 mg/L FEU (<0.60)
[2020-04-08] MEDS ORDERED: KETOROLAC 15 MG/ML 1 ML VIAL IVP STA (14:57)
[2020-04-08] MEDS ORDERED: ONDANSETRON 4 MG/2 ML VIAL IVP STA (14:57)
[2020-04-08 15:43] VITALS: RESP 20
--- NOTE | 2020-04-08 15:49 | CT ---
CT CHEST FOR PULMONARY EMBOLISM. EXAMINATION TYPE: CT chest angio for PE DATE OF EXAM: 04/08/2020 INDICATION: Shortness of breath, weakness CT DLP: 687.5 mGycm, Automated exposure control for dose reduction was used. CONTRAST: Patient injected with 100 mL of Isovue 370. COMPARISON: 11/12/2019 TECHNIQUE: CT of the chest is performed on a spiral scan at 2 mm thick sections. Study is performed with intravenous contrast timed for evaluation for pulmonary embolism. This will limit additional po rtions of the evaluation. 3-D MIP images reconstructed by the technologist are reviewed on the compu ter in the coronal and sagittal planes. FINDINGS: No persistent filling defects are evident to suggest an acute pulmonary embolism. No mediastinal or hilar adenopathy enlarged by CT criteria is evident. The ascending aorta diameter at the level of the main pulmonary artery is 3.1 cm. The main pulmonary artery diameter at the bifur cation is 3.2 cm. Consider some pulmonary hypertension.21 Lung windows are clear. Limited CT section through the upper abdomen are unremarkable. IMPRESSIONS: 1. No acute pulmonary embolism. 2. Some pulmonary hypertension may be present.
[2020-04-08 16:09] VITALS: BP 128/65; PULSE 78; TEMP 98.3
== END 2020-04-08 16:05 | disposition home or self-care (01) ==
LOC: EC 13:48
DX: I27.20 Pulmonary hypertension, unspecified (principal); R10.13 Epigastric pain; R11.0 Nausea; F32.9 Major depressive disorder, single episode, unspecified; F41.9 Anxiety disorder, unspecified
CPT/HCPCS: 36415; 93005; 85379; 80053; 83690; 84484; 85025; 85610; 85730; 87635; 71046; 71275; 99284; 96374; 96375; J2405; J1885; Q9967

== ENCOUNTER → 2020-05-11 | Outpatient (CLI) | payer OTHER | END | disposition home or self-care (01) | LOC: LABWHC1 11:28 | PROVIDERS: ATTEND Internal Medicine | DX: Z53.9 Procedure and treatment not carried out, unspecified reason (principal) ==

== ENCOUNTER → 2020-05-13 | Outpatient (CLI) | payer OTHER ==
[2020-05-13 22:41] LABS: Basophils # (A) 0.05 X 10*3/uL (0.00-0.10); Basophils % (A) 0.5 %; Eosinophils # (A) 0.15 X 10*3/uL (0.04-0.35); Eosinophils % (A) 1.5 %; HCT 35.6 % (37.2-46.3); HGB 11.6 g/dL (12.0-15.0); Lymphocytes # (A) 3.73 X 10*3/uL (0.90-5.00); Lymphocytes % (A) 36.6 %; MCH 28.6 pg (27.0-32.0); MCHC 32.6 g/dL (32.0-37.0); MCV 87.9 fL (80.0-97.0); Mean Platelet Volume 8.5 fL (9.5-12.2); Monocytes # (A) 0.98 X 10*3/uL (0.20-1.00); Monocytes % (A) 9.6 %; Neutrophils # (A) 5.24 X 10*3/uL (1.80-7.70); Neutrophils % (A) 51.4 %; Platelet Count 451 X 10*3/uL (140-440); RBC 4.05 X 10*6/uL (4.10-5.20); RDW 14.1 % (11.5-14.5); WBC 10.19 X 10*3/uL (4.50-10.00)
[2020-05-14 03:42] LABS: African American GFR (CKD) 75.3 (60.0-200.0); Anion Gap 9.4 mmol/L (4.00-12.00); BUN/Creat Ratio 13.64 Ratio (12.00-20.00); Calcium 9.4 mg/dL (8.7-10.3); Carbon Dioxide 26.6 mmol/L (21.6-31.8); Potassium 3.9 mmol/L (3.5-5.5)
== END | disposition home or self-care (01) ==
LOC: LABWHC1 14:18
PROVIDERS: ATTEND Internal Medicine
DX: Z20.822 Contact with and (suspected) exposure to COVID-19 (principal); R05 Cough; R50.9 Fever, unspecified
CPT/HCPCS: 80048; 85025; 36415; U0003; U0005

== ENCOUNTER 2020-11-02 08:36 | Emergency (ER) | payer OTHER ==
[2020-11-02 08:43] VITALS: RESP 16; TEMP 97.8
[2020-11-02] MEDS ORDERED: HYDROcodone/APAP 10-325MG 1 EACH TAB PO ONE (09:01)
--- NOTE | 2020-11-02 09:04 | ED ---
Lower Extremity Injury [facility] - General Chief Complaint: Extremity Injury, Lower Stated Complaint: knee pain Time Seen by Provider: 11/02/20 08:44 Source: patient, RN notes reviewed Mode of arrival: wheelchair Limitations: physical limitation - History of Present Illness Initial Comments: 35-year-old female presenting to the ER for left knee pain. Patient states he injured her knee yesterday while playing with children in a twisting motion. Patient has chronic right knee pain that is currently under treatment for meniscal injury per patient. Patient has limited range of motion, is unable to ambulate, with severe pain in left knee. Patient is otherwise stable without any other complaints. MD Complaint: knee injury Injury: Knee: Left (pain) - Related Data Home Medications Medication Instructions Recorded Confirmed Sertraline [Zoloft] 100 mg PO DAILY 02/07/18 04/08/20 Cyclobenzaprine [Flexeril] 10 mg PO BID PRN 11/12/19 04/08/20 Dicyclomine [Bentyl] 10 - 20 mg PO TID PRN 11/12/19 04/08/20 Ibuprofen [Motrin] 800 mg PO TID PRN 11/12/19 04/08/20 Promethazine 6.25MG/5Ml [Phenergan 5 - 10 ml PO QID PRN 11/12/19 04/08/20 Syrup] ALPRAZolam [Xanax] 0.25 - 0.5 mg PO HS PRN 04/08/20 04/08/20 Albuterol Nebulized [Ventolin 2.5 mg INHALATION RT-QID PRN 04/08/20 04/08/20 Nebulized] Estarylla 0.25-0.035 1 tab PO DAILY 04/08/20 04/08/20 Multivitamins, Thera [Multivitamin 1 tab PO DAILY 04/08/20 04/08/20 (formulary)] Ondansetron Odt [Zofran Odt] 4 mg PO BID PRN 04/08/20 04/08/20 Previous Rx's Medication Instructions Recorded Famotidine [Pepcid] 20 mg PO BID #10 tab 11/13/19 Albuterol Inhaler [Ventolin Hfa 2 puff INHALATION RT-Q4H #1 11/23/19 Inhaler] Naproxen [Naprosyn] 500 mg PO Q12HR #30 tab 11/02/20 Allergies Allergy/AdvReac Type Severity Reaction Status Date / Time No Known Allergies Allergy Verified 11/02/20 08:43 Review of Systems ROS Statement: Those systems with pertinent positive or pertinent negative responses have been documented in the HPI. ROS Other: All systems not noted in ROS Statement are negative. Past Medical History Past Medical History: No Reported History Additional Past Medical History / Comment(s): heart murmur, Covid+ November 2019 History of Any Multi-Drug Resistant Organisms: None Reported Past Surgical History: Section Past Anesthesia/Blood Transfusion Reactions: No Reported Reaction Past Psychological History: Anxiety, Depression Smoking Status: Never smoker Past Alcohol Use History: None Reported Past Drug Use History: None Reported - Past Family History Father Family Medical History: No Reported History General Exam Limitations: physical limitation General appearance: alert, in distress (Pain) Head exam: Present: atraumatic, normocephalic, normal inspection Eye exam: Present: normal appearance, PERRL, EOMI. Absent: scleral icterus, conjunctival injection, periorbital swelling ENT exam: Present: normal exam, mucous membranes moist Neck exam: Present: normal inspection. Absent: tenderness, meningismus, lymphadenopathy Respiratory exam: Present: normal lung sounds bilaterally. Absent: respiratory distress, wheezes, rales, rhonchi, stridor Cardiovascular Exam: Present: regular rate, normal rhythm, normal heart sounds. Absent: systolic murmur, diastolic murmur, rubs, gallop, clicks GI/Abdominal exam: Present: soft, normal bowel sounds. Absent: distended, tenderness, guarding, rebound, rigid Extremities exam: Present: normal inspection, full ROM, normal capillary refill. Absent: tenderness, pedal edema, joint swelling, calf tenderness Left Knee exam: Present: tenderness, swelling, full knee extension (Pain, limited range of motion) Back exam: Present: normal inspection Neurological exam: Present: alert, oriented X3, CN II-XII intact Psychiatric exam: Present: normal affect, normal mood Skin exam: Present: warm, dry, intact, normal color. Absent: rash Course Vital Signs 11/02/20 08:40 Temperature 97.8 F Pulse Rate 95 Respiratory 16 Rate Blood Pressure 133/80 O2 Sat by Pulse 99 Oximetry Medical Decision Making - Medical Decision Making X-ray does not show any significant abnormality. Patient is a left knee sprain. Patient's currently sees Dr. Todd in [place] for orthopedics. She is advised to follow-up. She is requesting brace will be discharged with knee immobilizer and close follow-up. Disposition Clinical Impression: Left knee sprain Disposition: HOME SELF-CARE Condition: Stable Instructions (If sedation given, give patient instructions): Knee Sprain (ED) Additional Instructions: Please return to the Emergency Department if symptoms worsen or any other concerns. Is patient prescribed a controlled substance at d/c from ED?: No Referrals: None,Stated [Primary Care Provider] - 1-2 days
[2020-11-02] MEDS ORDERED: ACET/COD 300 MG/30 MG STARTER PACK 6 TAB BTL PO STA (09:52)
--- NOTE | 2020-11-02 09:57 | XR ---
EXAMINATION TYPE: XR knee complete LT DATE OF EXAM: 11/02/2020 CLINICAL HISTORY: Strain injury with pain and swelling TECHNIQUE: Three views of the right knee are obtained. COMPARISON: None. FINDINGS: There is no acute fracture/dislocation evident in the right knee. The tri-compartment lara nt spaces appear within normal limits. Increased density suprapatellar bursa consistent with small to moderate size joint effusion. IMPRESSION: There is no acute fracture or dislocation in the right knee.
[2020-11-02 11:15] VITALS: BP 138/75; PULSE 92
== END 2020-11-02 11:11 | disposition home or self-care (01) ==
LOC: EC 08:36
DX: S83.92XA Sprain of unspecified site of left knee, initial encounter (principal); F41.9 Anxiety disorder, unspecified; F32.9 Major depressive disorder, single episode, unspecified; Z86.16 Personal history of COVID-19; X50.0XXA Overexertion from strenuous movement or load, initial encounter
CPT/HCPCS: 99283; 73562; L1830

== ENCOUNTER 2020-11-17 13:22 | Emergency (ER) | payer OTHER ==
--- NOTE | 2020-11-17 14:38 | XR ---
EXAMINATION TYPE: XR foot complete LT DATE OF EXAM: 11/17/2020 COMPARISON: NONE HISTORY: Pain TECHNIQUE: Three views are submitted. FINDINGS: The osseous structures are intact. There is no acute fracture or dislocation. Joint spaces are p reserved. Calcaneal spur noted. Soft tissue edema noted. IMPRESSION: 1. No acute fracture or dislocation. If symptoms persist, follow-up exam in 7 to 10 days could be ob tained.
[2020-11-17] MEDS ORDERED: SODIUM CHLORIDE 0.9% 1,000 ML IV STA (15:22)
[2020-11-17] MEDS ORDERED: MORPHINE SULFATE 4 MG/ML SYRINGE IV STA (15:22)
--- NOTE | 2020-11-17 15:24 | ED ---
General Adult HPI - General Chief complaint: Vaginal Bleeding Stated complaint: extrem ABD pain,Lt foot sprain Time Seen by Provider: 11/17/20 15:10 Source: patient Mode of arrival: ambulatory Limitations: no limitations - History of Present Illness Initial comments: 35-year-old female presents to the emergency room for a chief complaint of abdominal pain and vaginal bleeding. Patient states this started about 6 days ago. She reports that her period was a few days late. When it began it was much heavier than normal and much more painful than normal. Patient did take a test and it was negative. Patient states she also feels fatigued and wants to make sure her labs look okay. Patient also reports left foot pain. This has been ongoing for the past several days. States that she has pain in both her knees and walks differently and injured her left foot.Patient has no other complaints at this time including shortness of breath, chest pain, nausea or vomiting, headache, or visual changes. - Related Data Home Medications Medication Instructions Recorded Confirmed Sertraline [Zoloft] 100 mg PO DAILY 02/07/18 11/02/20 Ibuprofen [Motrin] 800 mg PO TID PRN 11/12/19 11/02/20 ALPRAZolam [Xanax] 0.5 mg PO HS PRN 04/08/20 11/02/20 Ondansetron Odt [Zofran Odt] 4 mg PO BID PRN 04/08/20 11/02/20 Albuterol Inhaler [Ventolin Hfa 2 puff INHALATION RT-Q4H PRN 11/02/20 11/02/20 Inhaler] Previous Rx's Medication Instructions Recorded Naproxen [Naprosyn] 500 mg PO Q12HR #30 tab 11/02/20 Allergies Allergy/AdvReac Type Severity Reaction Status Date / Time No Known Allergies Allergy Verified 11/17/20 14:04 Review of Systems ROS Statement: Those systems with pertinent positive or pertinent negative responses have been documented in the HPI. ROS Other: All systems not noted in ROS Statement are negative. Past Medical History Past Medical History: No Reported History Additional Past Medical History / Comment(s): heart murmur, Covid+ November 2019 History of Any Multi-Drug Resistant Organisms: None Reported Past Surgical History: Section Past Anesthesia/Blood Transfusion Reactions: No Reported Reaction Past Psychological History: Anxiety, Depression Smoking Status: Never smoker Past Alcohol Use History: None Reported Past Drug Use History: None Reported - Past Family History Father Family Medical History: No Reported History General Exam Limitations: no limitations General appearance: alert, in no apparent distress Head exam: Present: atraumatic Eye exam: Present: normal appearance, PERRL, EOMI. Absent: scleral icterus, conjunctival injection ENT exam: Present: normal exam, mucous membranes moist Neck exam: Present: normal inspection, full ROM. Absent: tenderness Respiratory exam: Present: normal lung sounds bilaterally. Absent: respiratory distress, wheezes Cardiovascular Exam: Present: regular rate, normal rhythm, normal heart sounds GI/Abdominal exam: Present: soft, normal bowel sounds. Absent: distended, tenderness Extremities exam: Present: full ROM (Full range motion of the left foot.), tenderness (Tenderness to the left lateral dorsal foot. No tenderness to the ankle.), normal capillary refill (Capillary refill less than 2 seconds, DP pulse 2+ left lower extremity). Absent: pedal edema, joint swelling Neurological exam: Present: alert Course Vital Signs 11/17/20 14:00 Temperature 98.1 F Pulse Rate 101 H Respiratory 20 Rate Blood Pressure 147/74 O2 Sat by Pulse 98 Oximetry Medical Decision Making - Medical Decision Making Vitals are stable. Patient is not a significant abdominal tenderness. CBC is unremarkable with a hemoglobin of 4.6. CMP unremarkable. HCG Quant is negative. Transvaginal ultrasound was obtained which did show a left ovarian cyst. Vascular waveforms are noted bilaterally. Patient then refused pelvic exam stating that it would worsen her pain. Her pain did improve his pain medication but she preferred to monitor herself and return if bleeding worsened. She does have an appointment with her doctor in the next several days. At this time patient is stable for discharge home but will monitor for any worsening symptoms such as worsening vaginal bleeding or pain and will return if these occur. As far as foot x-ray it is negative. Patient was wrapped with an Amandeep wrap. She is requesting referral to orthopedics. - Lab Data Result diagrams: 11/17/20 15:28 11/17/20 15:28 Lab Results 11/17/20 11/17/20 Range/Units 15:28 15:28 WBC 10.2 (3.8-10.6) k/uL RBC 4.38 (3.80-5.40) m/uL Hgb 12.6 (11.4-16.0) gm/dL Hct 39.2 (34.0-46.0) % MCV 89.5 (80.0-100.0) fL MCH 28.8 (25.0-35.0) pg MCHC 32.2 (31.0-37.0) g/dL RDW 13.2 (11.5-15.5) % Plt Count 476 H (150-450) k/uL MPV 6.4 Neutrophils % 65 % Lymphocytes % 25 % Monocytes % 6 % Eosinophils % 2 % Basophils % 0 % Neutrophils # 6.6 (1.3-7.7) k/uL Lymphocytes # 2.5 (1.0-4.8) k/uL Monocytes # 0.6 (0-1.0) k/uL Eosinophils # 0.2 (0-0.7) k/uL Basophils # 0.0 (0-0.2) k/uL Sodium 137 (137-145) mmol/L Potassium 4.7 (3.5-5.1) mmol/L Chloride 103 (98-107) mmol/L Carbon Dioxide 27 (22-30) mmol/L Anion Gap 7 mmol/L BUN 15 (7-17) mg/dL Creatinine 0.90 (0.52-1.04) mg/dL Est GFR (CKD-EPI)AfAm >90 (>60 ml/min/1.73 sqM) Est GFR (CKD-EPI)NonAf 83 (>60 ml/min/1.73 sqM) Glucose 94 (74-99) mg/dL Calcium 10.4 H (8.4-10.2) mg/dL Total Bilirubin 0.5 (0.2-1.3) mg/dL AST 42 H (14-36) U/L ALT 24 (4-34) U/L Alkaline Phosphatase 93 (38-126) U/L Total Protein 7.6 (6.3-8.2) g/dL Albumin 4.3 (3.5-5.0) g/dL Amylase 78 (30-110) U/L Lipase 60 (23-300) U/L HCG, Quant <2.4 mIU/mL Disposition Clinical Impression: Dysfunctional uterine bleeding, Left foot pain Disposition: HOME SELF-CARE Condition: Good Instructions (If sedation given, give patient instructions): Dysfunctional Uterine Bleeding (ED) Additional Instructions: Please follow-up with your doctor in one to 2 days. Monitor bleeding and if it worsens return to the emergency room. Continue Motrin and Tylenol for pelvic and foot pain. Rest ice and elevate the left foot. Return to the emergency room for any worsening symptoms. Is patient prescribed a controlled substance at d/c from ED?: No Referrals: Todd Hernandez DO [Doctor of Osteopathic Medicine] - 1-2 days Time of Disposition: 17:06
[2020-11-17 15:40] LABS: Basophils % (A) 0 %; Eosinophils # (A) 0.2 k/uL (0-0.7); Eosinophils % (A) 2 %; HCT 39.2 % (34.0-46.0); HGB 12.6 gm/dL (11.4-16.0); Lymphocytes # (A) 2.5 k/uL (1.0-4.8); Lymphocytes % (A) 25 %; MCH 28.8 pg (25.0-35.0); MCHC 32.2 g/dL (31.0-37.0); MCV 89.5 fL (80.0-100.0); Mean Platelet Volume 6.4; Monocytes # (A) 0.6 k/uL (0-1.0); Monocytes % (A) 6 %; Neutrophils # (A) 6.6 k/uL (1.3-7.7); Neutrophils % (A) 65 %; Platelet Count 476 k/uL (150-450); RBC 4.38 m/uL (3.80-5.40); RDW 13.2 % (11.5-15.5); WBC 10.2 k/uL (3.8-10.6)
[2020-11-17 15:50] LABS: ALT 24 U/L (4-34); AST 42 U/L (14-36); African American GFR (CKD) >90 (>60 ml/min/1.73 sqM); Albumin 4.3 g/dL (3.5-5.0); Alkaline Phosphatase 93 U/L (38-126); Amylase 78 U/L (30-110); Anion Gap 7 mmol/L; Blood Urea Nitrogen 15 mg/dL (7-17); Calcium 10.4 mg/dL (8.4-10.2); Carbon Dioxide 27 mmol/L (22-30); Chloride 103 mmol/L (98-107); Glucose 94 mg/dL (74-99); Lipase 60 U/L (23-300); Non-African American GFR(CKD) 83 (>60 ml/min/1.73 sqM); Potassium 4.7 mmol/L (3.5-5.1); Sodium 137 mmol/L (137-145); Total Bilirubin 0.5 mg/dL (0.2-1.3); Total Protein 7.6 g/dL (6.3-8.2)
[2020-11-17 16:07] LABS: HCG,Quantitative Serum <2.4 mIU/mL
--- NOTE | 2020-11-17 16:24 | US ---
EXAMINATION TYPE: US transvaginal DATE OF EXAM: 11/17/2020 COMPARISON: NONE CLINICAL HISTORY: pain, bleeding. extreme pelvic pain with clots, period was 1 day late and patient s tates that never happens, h/o ovarian cysts TECHNIQUE: TV. Transvaginal sonographic images Date of LMP: 11-11-2020 EXAM MEASUREMENTS: Uterus: 8.4 x 4.7 x 4.8 cm Endometrial Stripe: 0.5 cm Right Ovary: 3.3 x 2.5 x 2.0 cm Left Ovary: 4.2 x 2.4 x 3.9 cm 1. Uterus: Retroverted wnl 2. Endometrium: wnl 3. Right Ovary: follicle seen = 1.6cm 4. Left Ovary: 2.3 x 2.2 x 2.2cm cyst seen Spectral, color and waveform doppler imaging shows color flow about the ovaries. Vascular waveforms are noted bilaterally 5. Bilateral Adnexa: wnl 6. Posterior cul-de-sac: wnl IMPRESSION: Left ovarian cyst.
[2020-11-17] MEDS ORDERED: ACET/COD 300 MG/30 MG STARTER PACK 6 TAB BTL PO STA (17:08)
[2020-11-17 17:50] VITALS: BP 146/79; PULSE 82; RESP 18; TEMP 97.9
[2020-11-17 17:52] LABS: Appearance,Urine Clear (Clear); Bilirubin,Urine Negative (Negative); Blood,Urine Negative (Negative); Color,Urine Light Yellow; Glucose,Urine (UA) Negative (Negative); Ketones,Urine Negative (Negative); Leukocyte Esterase,Urine Negative (Negative); Nitrite,Urine Negative (Negative); PH, Urine 6.5 (5.0-8.0); Protein,Urine Negative (Negative); Specific Gravity,Urine 1.011 (1.001-1.035); Urobilinogen,Urine <2.0 mg/dL (<2.0)
[2020-11-19 17:38] LABS: C. trachomatis,PCR Negative (Neg,Equiv); Chlamydia trachomatis Source Urine; N. gonorrhoeae,PCR Negative (Neg,Equiv); Neisseria Source Urine
== END 2020-11-17 17:50 | disposition home or self-care (01) ==
LOC: EC 13:22
DX: N93.8 Other specified abnormal uterine and vaginal bleeding (principal); M79.672 Pain in left foot; N83.202 Unspecified ovarian cyst, left side; F32.9 Major depressive disorder, single episode, unspecified; F41.9 Anxiety disorder, unspecified; Z79.1 Long term (current) use of non-steroidal anti-inflammatories (NSAID); Z79.51 Long term (current) use of inhaled steroids; Z79.899 Other long term (current) drug therapy
CPT/HCPCS: 36415; 80053; 82150; 83690; 85025; 81003; 81025; 84702; 87491; 87591; 73630; 93975; 76830; 99284; 96374; 96361; J2270

== ENCOUNTER 2020-12-09 19:07 | Emergency (ER) | payer OTHER ==
[2020-12-09 20:38] VITALS: TEMP 98.4
[2020-12-09] MEDS ORDERED: SODIUM CHLORIDE 0.9% 1,000 ML IV STA (21:27)
[2020-12-09] MEDS ORDERED: ASPIRIN 81 MG PO STA (21:27)
[2020-12-09] MEDS ORDERED: diphenhydrAMINE 50 MG/ML 1 ML VIAL IVP STA (21:27)
[2020-12-09] MEDS ORDERED: PROCHLORPERAZINE INJ 10 MG/2 ML VIAL IVP STA (21:28)
[2020-12-09] MEDS ORDERED: KETOROLAC 15 MG/ML 1 ML VIAL IVP STA (21:28)
[2020-12-09 22:49] LABS: Basophils % (A) 0 %; Eosinophils # (A) 0.2 k/uL (0-0.7); Eosinophils % (A) 2 %; HCT 39.6 % (34.0-46.0); HGB 13.1 gm/dL (11.4-16.0); Lymphocytes # (A) 3.4 k/uL (1.0-4.8); Lymphocytes % (A) 34 %; MCH 29.3 pg (25.0-35.0); MCV 88.8 fL (80.0-100.0); Mean Platelet Volume 7.2; Monocytes # (A) 0.5 k/uL (0-1.0); Monocytes % (A) 5 %; Neutrophils # (A) 5.7 k/uL (1.3-7.7); Neutrophils % (A) 57 %; Platelet Count 467 k/uL (150-450); RBC 4.46 m/uL (3.80-5.40); RDW 13.8 % (11.5-15.5)
[2020-12-09 22:56] VITALS: RESP 18
[2020-12-09 23:01] LABS: ALT 31 U/L (4-34); AST 33 U/L (14-36); African American GFR (CKD) >90 (>60 ml/min/1.73 sqM); Albumin 4.3 g/dL (3.5-5.0); Alkaline Phosphatase 93 U/L (38-126); Anion Gap 7 mmol/L; Blood Urea Nitrogen 12 mg/dL (7-17); Calcium 10.3 mg/dL (8.4-10.2); Carbon Dioxide 25 mmol/L (22-30); Chloride 104 mmol/L (98-107); Glucose 110 mg/dL (74-99); Non-African American GFR(CKD) 90 (>60 ml/min/1.73 sqM); Potassium 4.1 mmol/L (3.5-5.1); Sodium 136 mmol/L (137-145); Total Bilirubin 0.3 mg/dL (0.2-1.3); Total Protein 7.7 g/dL (6.3-8.2)
[2020-12-09 23:02] LABS: INR 0.9 (<1.2); Partial Thromboplastin Time 23.5 sec (22.0-30.0); Prothrombin Time 9.6 sec (9.0-12.0)
[2020-12-09 23:04] LABS: HCG,Qualitative Serum Not Detected
--- NOTE | 2020-12-09 23:35 | ED ---
General Adult HPI - General Chief complaint: Dizziness Stated complaint: Chest Pain/High BP Time Seen by Provider: 12/09/20 21:02 Source: patient, RN notes reviewed, old records reviewed Mode of arrival: wheelchair Limitations: no limitations - History of Present Illness Initial comments: I evaluated the patient when she was placed in a room. Patient is a 35-year-old female with past medical history remarkable for hypertension, as well as prior COVID-19 infection 1 year ago presents emergency Department complaining of multiple complaints. She states she had high blood pressure today, then felt some chest pain as well as shortness of breath. She states this been going on for multiple days. She states that she occasionally feels like she's been to pass out. She states she is fatigued all over. She intermittently will become lightheaded and does not feel that overall. States she also feels nauseous. She isthat she is been having increased vaginal bleeding for the last month. He was previously worked up and revealed ovarian cysts. She has not yet followed up with [facility], and her symptoms have been unchanged since that time. She is describing a tension-like headache like a belt tied around her head. The symptoms have been ongoing for multiple days to weeks, however they were worse today which is why she presents emergency department for evaluation. She denies any fevers, chills, cough. Denies any urinary complaints. Endorses vaginal bleeding but no discharge. She denies being as she had a tubal ligation. - Related Data Home Medications Medication Instructions Recorded Confirmed Sertraline [Zoloft] 100 mg PO DAILY 02/07/18 12/09/20 Ibuprofen [Motrin] 800 mg PO TID PRN 11/12/19 12/09/20 Albuterol Sulfate [Proair Hfa] 2 puff INHALATION RT-Q4H PRN 11/17/20 12/09/20 Fluticasone/Vilanterol [Breo 1 puff INHALATION RT-DAILY 11/17/20 12/09/20 Ellipta 200-25 Mcg Inhaler] Albuterol Nebulized [Ventolin 2.5 mg INHALATION RT-QID PRN 12/09/20 12/09/20 Nebulized] Cyclobenzaprine [Flexeril] 10 mg PO BID PRN 12/09/20 12/09/20 Famotidine 20 mg PO BID 12/09/20 12/09/20 Metoprolol Tartrate [Lopressor] 25 mg PO BID 12/09/20 12/09/20 Ondansetron Odt [Zofran Odt] 4 mg PO BID PRN 12/09/20 12/09/20 Zolpidem Tartrate [Ambien] 10 mg PO HS PRN 12/09/20 12/09/20 busPIRone HCl [Buspar] 10 mg PO BID 12/09/20 12/09/20 Allergies Allergy/AdvReac Type Severity Reaction Status Date / Time No Known Allergies Allergy Verified 12/09/20 20:35 Review of Systems ROS Statement: Those systems with pertinent positive or pertinent negative responses have been documented in the HPI. Review of Systems: CONST: Denies fever EYES: Denies blurry vision ENT: Denies nasal congestion C/V: Endorses chest pain RESP: Endorses shortness of breath GI: Denies abdominal pain : Endorses vaginal bleeding SKIN: Denies rash. MSK: Denies joint pain. NEURO: Endorses headache ROS Other: All systems not noted in ROS Statement are negative. Past Medical History Past Medical History: Hypertension Additional Past Medical History / Comment(s): heart murmur, Covid+ November 2019 History of Any Multi-Drug Resistant Organisms: None Reported Past Surgical History: Section Past Anesthesia/Blood Transfusion Reactions: No Reported Reaction Past Psychological History: Anxiety, Depression Smoking Status: Never smoker Past Alcohol Use History: None Reported Past Drug Use History: None Reported - Past Family History Father Family Medical History: No Reported History General Exam - General Exam Comments Initial Comments: General: Appears in no acute distress. HEAD: Normal with no signs of head trauma. EYES: PERRLA, EOMI, conjunctiva normal, no discharge. Pupils are 3 mm and equa l bilaterally. ENT: Hearing grossly intact, normal oropharynx. RESPIRATORY: Clear breath sounds bilaterally. No wheezes, rales, or rhonchi. C/V: Regular rate and rhythm. S1 and S2 auscultated, no edema, peripheral pulses 2+ and intact throughout ABD: Abd is soft, nontender, nondistended EXT: Normal range of motion, no obvious deformity SKIN: No rashes or lesions observed on exposed skin. NEURO: Alert and oriented x 4. Cranial nerves II-XII intact. No focal sensory or strength deficits. Limitations: no limitations Course Vital Signs 12/09/20 12/09/20 12/09/20 20:35 21:12 22:39 Temperature 98.4 F Pulse Rate 72 65 66 Respiratory 20 20 18 Rate Blood Pressure 153/93 147/111 140/87 O2 Sat by Pulse 99 99 100 Oximetry 12/10/20 00:17 Temperature Pulse Rate 73 Respiratory 18 Rate Blood Pressure 157/91 O2 Sat by Pulse 99 Oximetry Medical Decision Making - Medical Decision Making Based on the patient's presentation and physical exam, I'm concerned for possible cardiac etiology for her current symptoms for which is also having headache. Cannot rule out the possibility of acute pulmonary him was in. Baseline Wells score for PE, she is low risk, so we will obtain a d-dimer screening. This is in addition to cardiac labs, EKG, chest x-ray. Patient was in agreement with this plan. She'll be symptomatically treated with a migraine cocktail consisting of IV Benadryl, Toradol, Compazine and 1 L fluid bolus. She will be given an aspirin. Covid, flu, RSV swab will be obtained. EKG shows no acute changes and no signs of acute ischemia. Laboratory studies are remarkable for an elevated d-dimer of 1.13. Troponin is negative. Patient is not . Covid swab as well as urinalysis are still pending at this time. Chest xray is negative for acute cardiopulmonary process. I discussed with patient and due to the elevated d-dimer I did recommend that we obtain a CT angios the chest to rule out possibility of pulmonary embolism. She was in agreement this plan. However she is feeling extremely anxious regarding the diagnosis ration. We will provide her with a dose of Ativan at this time obtain CT imaging afterwards. She was in agreement this plan.She states that she feels palpitations at this time as well. I do believe there is an anxiety component related to her current symptoms, especially in the setting of the chronicity of the symptoms and the absence of any etiologies seen on labs or imaging up until this point. At this point at the end of my shift. Imaging studies are still pending. Patient was signed out to the [facility] emergency Department physician Dr. Wu. Disposition is pending results of imaging. Patient was signed out in stable condition. Patient decided to leave the department. She left prior to evaluation by Dr. Wu and prior to CTA imaging. Patient left before completing treatment. - Lab Data Result diagrams: 12/09/20 21:27 12/09/20 22:27 Lab Results 12/09/20 12/09/20 12/09/20 Range/Units 21:27 22:27 22:27 WBC 10.0 (3.8-10.6) k/uL RBC 4.46 (3.80-5.40) m/uL Hgb 13.1 (11.4-16.0) gm/dL Hct 39.6 (34.0-46.0) % MCV 88.8 (80.0-100.0) fL MCH 29.3 (25.0-35.0) pg MCHC 33.0 (31.0-37.0) g/dL RDW 13.8 (11.5-15.5) % Plt Count 467 H (150-450) k/uL MPV 7.2 Neutrophils % 57 % Lymphocytes % 34 % Monocytes % 5 % Eosinophils % 2 % Basophils % 0 % Neutrophils # 5.7 (1.3-7.7) k/uL Lymphocytes # 3.4 (1.0-4.8) k/uL Monocytes # 0.5 (0-1.0) k/uL Eosinophils # 0.2 (0-0.7) k/uL Basophils # 0.0 (0-0.2) k/uL PT 9.6 (9.0-12.0) sec INR 0.9 (<1.2) APTT 23.5 (22.0-30.0) sec D-Dimer 1.13 H (<0.60) mg/L FEU Sodium (137-145) mmol/L Potassium (3.5-5.1) mmol/L Chloride (98-107) mmol/L Carbon Dioxide (22-30) mmol/L Anion Gap mmol/L BUN (7-17) mg/dL Creatinine (0.52-1.04) mg/dL Est GFR (CKD-EPI)AfAm (>60 ml/min/1.73 sqM) Est GFR (CKD-EPI)NonAf (>60 ml/min/1.73 sqM) Glucose (74-99) mg/dL Calcium (8.4-10.2) mg/dL Magnesium (1.6-2.3) mg/dL Total Bilirubin (0.2-1.3) mg/dL AST (14-36) U/L ALT (4-34) U/L Alkaline Phosphatase (38-126) U/L Troponin I (0.000-0.034) ng/mL Total Protein (6.3-8.2) g/dL Albumin (3.5-5.0) g/dL HCG, Qual Urine Color Yellow Urine Appearance Clear (Clear) Urine pH 5.5 (5.0-8.0) Ur Specific [place] 1.015 (1.001-1.035) Urine Protein Negative (Negative) Urine Glucose (UA) Negative (Negative) Urine Ketones Negative (Negative) Urine Blood Negative (Negative) Urine Nitrite Negative (Negative) Urine Bilirubin Negative (Negative) Urine Urobilinogen <2.0 (<2.0) mg/dL Ur Leukocyte Esterase Negative (Negative) Influenza Type A (PCR) (Not Detectd) Influenza Type B (PCR) (Not Detectd) RSV (PCR) (Not Detectd) SARS-CoV-2 (PCR) (Not Detectd) 12/09/20 12/09/20 12/09/20 Range/Units 22:27 22:27 22:50 WBC (3.8-10.6) k/uL RBC (3.80-5.40) m/uL Hgb (11.4-16.0) gm/dL Hct (34.0-46.0) % MCV (80.0-100.0) fL MCH (25.0-35.0) pg MCHC (31.0-37.0) g/dL RDW (11.5-15.5) % Plt Count (150-450) k/uL MPV Neutrophils % % Lymphocytes % % Monocytes % % Eosinophils % % Basophils % % Neutrophils # (1.3-7.7) k/uL Lymphocytes # (1.0-4.8) k/uL Monocytes # (0-1.0) k/uL Eosinophils # (0-0.7) k/uL Basophils # (0-0.2) k/uL PT (9.0-12.0) sec INR (<1.2) APTT (22.0-30.0) sec D-Dimer (<0.60) mg/L FEU Sodium 136 L (137-145) mmol/L Potassium 4.1 (3.5-5.1) mmol/L Chloride 104 (98-107) mmol/L Carbon Dioxide 25 (22-30) mmol/L Anion Gap 7 mmol/L BUN 12 (7-17) mg/dL Creatinine 0.84 (0.52-1.04) mg/dL Est GFR (CKD-EPI)AfAm >90 (>60 ml/min/1.73 sqM) Est GFR (CKD-EPI)NonAf 90 (>60 ml/min/1.73 sqM) Glucose 110 H (74-99) mg/dL Calcium 10.3 H (8.4-10.2) mg/dL Magnesium 2.0 (1.6-2.3) mg/dL Total Bilirubin 0.3 (0.2-1.3) mg/dL AST 33 (14-36) U/L ALT 31 (4-34) U/L Alkaline Phosphatase 93 (38-126) U/L Troponin I <0.012 (0.000-0.034) ng/mL Total Protein 7.7 (6.3-8.2) g/dL Albumin 4.3 (3.5-5.0) g/dL HCG, Qual Not Detected Urine Color Urine Appearance (Clear) Urine pH (5.0-8.0) Ur Specific [place] (1.001-1.035) Urine Protein (Negative) Urine Glucose (UA) (Negative) Urine Ketones (Negative) Urine Blood (Negative) Urine Nitrite (Negative) Urine Bilirubin (Negative) Urine Urobilinogen (<2.0) mg/dL Ur Leukocyte Esterase (Negative) Influenza Type A (PCR) Not Detected (Not Detectd) Influenza Type B (PCR) Not Detected (Not Detectd) RSV (PCR) Not Detected (Not Detectd) SARS-CoV-2 (PCR) Not Detected (Not Detectd) - EKG Data -: EKG Interpreted by Me EKG Comments: 12-lead Electrocardiogram Interpretation Note EKG was reviewed and interpreted by myself. 12-lead ECG performed at 2222 is interpreted by me as revealing normal sinus rhythm at a rate of 61 beats per minute. [place] is normal. IN interval is 162 ms, QRS duration is 86 ms, QTc is 440 ms.. There are T-wave inversions in leads 3 and aVF which are chronic. There is seen on prior EKGs.. R wave progression across the precordium was satisfactory. By my interpretation this EKG is non-diagnostic for acute ischemia. Disposition Clinical Impression: Hypertension, Chest pain Disposition: HOME SELF-CARE Condition: Undetermined Is patient prescribed a controlled substance at d/c from ED?: No Referrals: Polo Ann DO [Primary Care Provider] - 1-2 days
--- NOTE | 2020-12-09 23:40 | XR ---
EXAMINATION TYPE: XR chest 2V DATE OF EXAM: 12/09/2020 COMPARISON: 04/08/2020 HISTORY: Chest pain TECHNIQUE: 2 views FINDINGS: Heart and mediastinum are normal. Lungs are clear. Diaphragm is normal. Bony thorax is inta ct. IMPRESSION: Normal chest. No change.
[2020-12-09] MEDS ORDERED: LORazepam 2 MG/ML INJ IV STA (23:47)
[2020-12-09 23:50] LABS: Appearance,Urine Clear (Clear); Bilirubin,Urine Negative (Negative); Blood,Urine Negative (Negative); Color,Urine Yellow; Glucose,Urine (UA) Negative (Negative); Ketones,Urine Negative (Negative); Leukocyte Esterase,Urine Negative (Negative); Nitrite,Urine Negative (Negative); PH, Urine 5.5 (5.0-8.0); Protein,Urine Negative (Negative); Specific Gravity,Urine 1.015 (1.001-1.035); Urobilinogen,Urine <2.0 mg/dL (<2.0)
[2020-12-10 00:55] VITALS: BP 157/91; PULSE 73
== END 2020-12-10 00:17 | disposition home or self-care (01) ==
LOC: EC 19:07
DX: R07.9 Chest pain, unspecified (principal); I10 Essential (primary) hypertension; F41.9 Anxiety disorder, unspecified; F32.9 Major depressive disorder, single episode, unspecified; Z86.16 Personal history of COVID-19; Z20.822 Contact with and (suspected) exposure to COVID-19
CPT/HCPCS: 99285; 96374; 96375 ×2; 96361; 36415; 93005; 85379; 80053; 83735; 84484; 85025; 85610; 85730; 81003; 84703; 87636; 71046; J1200; J0780; J1885

== ENCOUNTER 2022-07-31 10:26 | Emergency (ER) | payer OTHER ==
[2022-07-31 10:52] VITALS: RESP 18; TEMP 98.1
[2022-07-31] MEDS ORDERED: IOPAMIDOL CONTRAST (ORAL USE) VIAL PO PRN (11:29)
[2022-07-31] MEDS ORDERED: ONDANSETRON 4 MG/2 ML VIAL IVP STA (11:32)
[2022-07-31] MEDS ORDERED: KETOROLAC 15 MG/ML 1 ML VIAL IVP STA (11:32)
[2022-07-31 11:37] LABS: Appearance,Urine Clear (Clear); Basophils % (A) 0 %; Bilirubin,Urine Negative (Negative); Blood,Urine Negative (Negative); Color,Urine Yellow; Eosinophils # (A) 0.2 k/uL (0-0.7); Eosinophils % (A) 3 %; Glucose,Urine (UA) Negative (Negative); HCT 35.7 % (34.0-46.0); HGB 11.9 gm/dL (11.4-16.0); Ketones,Urine Trace (Negative); Leukocyte Esterase,Urine Negative (Negative); Lymphocytes # (A) 1.7 k/uL (1.0-4.8); Lymphocytes % (A) 28 %; MCHC 33.3 g/dL (31.0-37.0); MCV 90.1 fL (80.0-100.0); Mean Platelet Volume 8.3; Monocytes # (A) 0.4 k/uL (0-1.0); Monocytes % (A) 6 %; Neutrophils # (A) 3.5 k/uL (1.3-7.7); Neutrophils % (A) 59 %; Nitrite,Urine Negative (Negative); Platelet Count 325 k/uL (150-450); Protein,Urine Trace (Negative); RBC 3.96 m/uL (3.80-5.40); RDW 13.5 % (11.5-15.5); Specific Gravity,Urine 1.016 (1.001-1.035); Urobilinogen,Urine <2.0 mg/dL (<2.0); WBC 5.9 k/uL (3.8-10.6)
[2022-07-31 11:48] LABS: ALT 30 U/L (4-34); AST 32 U/L (14-36); African American GFR (CKD) >90 (>60 ml/min/1.73 sqM); Albumin 4.1 g/dL (3.5-5.0); Alkaline Phosphatase 66 U/L (38-126); Amylase 54 U/L (30-110); Anion Gap 7 mmol/L; Blood Urea Nitrogen 10 mg/dL (7-17); Calcium 9.4 mg/dL (8.4-10.2); Carbon Dioxide 26 mmol/L (22-30); Chloride 102 mmol/L (98-107); Glucose 113 mg/dL (74-99); Lipase 38 U/L (23-300); Non-African American GFR(CKD) >90 (>60 ml/min/1.73 sqM); Potassium 3.6 mmol/L (3.5-5.1); Sodium 135 mmol/L (137-145); Total Bilirubin 0.5 mg/dL (0.2-1.3); Total Protein 7.3 g/dL (6.3-8.2)
--- NOTE | 2022-07-31 11:55 | ED ---
Abdominal Pain HPI - General Chief Complaint: Abdominal Pain Stated Complaint: Abd Pain Time Seen by Provider: 07/31/22 10:59 Source: patient Mode of arrival: ambulatory - History of Present Illness Initial Comments: 36-year-old woman with past medical history significant for fibroids, ovarian cysts, the past surgical history significant for tubal ligation presents to the ED with a chief complaint of abdominal pain. She states 10 days ago started to experience "crampy" abdominal pain. Pain was initially intermittent in nature however patient states last night pain became constant and worsened in severity. No changes in bowel or bladder habits. Denies vaginal bleeding or discharge. Notes associated nausea however has been able to tolerate food intake. Denies chest pain or shortness of breath. No other complaints. - Related Data Home Medications Medication Instructions Recorded Confirmed Ibuprofen [Motrin] 800 mg PO DAILY PRN 11/12/19 07/31/22 Famotidine 20 mg PO BID 12/09/20 07/31/22 Ondansetron Odt [Zofran Odt] 4 mg PO BID PRN 12/09/20 07/31/22 ALPRAZolam [Xanax] 0.5 mg PO BID PRN 07/31/22 07/31/22 Budesonide/Formoterol Fumarate 2 puff INHALATION RT-BID 07/31/22 07/31/22 [Symbicort 160-4.5 Mcg Inhaler] Ergocalciferol (Vitamin D2) 1,250 mcg PO PLATT 07/31/22 07/31/22 [Drisdol (50,000 Iu)] FLUoxetine HCL 40 mg PO DAILY 07/31/22 07/31/22 Metoprolol Tartrate [Lopressor] 50 mg PO BID 07/31/22 07/31/22 amLODIPine [Norvasc] 5 mg PO DAILY 07/31/22 07/31/22 Previous Rx's Medication Instructions Recorded HYDROcodone/APAP 10-325MG [[place] 1 tab PO Q4HR PRN 3 Days #18 tab 07/31/22 10-325] Ondansetron [Zofran] 4 mg PO Q8HR PRN #12 tab 07/31/22 Allergies Allergy/AdvReac Type Severity Reaction Status Date / Time No Known Allergies Allergy Verified 07/31/22 14:25 Review of Systems ROS Statement: Those systems with pertinent positive or pertinent negative responses have been documented in the HPI. ROS Other: All systems not noted in ROS Statement are negative. Past Medical History Past Medical History: Asthma, Hypertension Additional Past Medical History / Comment(s): heart murmur, Covid+ November 2019 History of Any Multi-Drug Resistant Organisms: None Reported Past Surgical History: Section Past Anesthesia/Blood Transfusion Reactions: No Reported Reaction Past Psychological History: Anxiety, Depression Smoking Status: Never smoker Past Alcohol Use History: Occasional Past Drug Use History: None Reported - Past Family History Father Family Medical History: No Reported History General Exam Limitations: no limitations General appearance: alert, in no apparent distress ENT exam: Present: mucous membranes moist Respiratory exam: Present: normal lung sounds bilaterally Cardiovascular Exam: Present: regular rate, normal rhythm GI/Abdominal exam: Present: soft, tenderness (Diffuse tenderness to palpation worsen the left lower quadrant.), normal bowel sounds Neurological exam: Present: alert, oriented X3 Psychiatric exam: Present: normal affect, normal mood Skin exam: Present: warm, dry Course Vital Signs 07/31/22 07/31/22 07/31/22 10:44 12:00 14:00 Temperature 98.1 F Pulse Rate 67 54 L 60 Respiratory 18 18 18 Rate Blood Pressure 136/89 131/85 150/86 O2 Sat by Pulse 99 99 97 Oximetry 07/31/22 15:52 Temperature Pulse Rate 60 Respiratory 18 Rate Blood Pressure 152/102 O2 Sat by Pulse 97 Oximetry Medical Decision Making - Medical Decision Making Was pt. sent in by a medical professional or institution ([facility] Fisher, FIELD MACHINIST, urgent care, hospital, or fpc...) When possible be specific @ -No Did you speak to anyone other than the patient for history (EMS, parent, family, police, friend...)? What history was obtained from this source @ -No Did you review nursing and triage notes (agree or disagree)? Why? @ -I reviewed and agree with nursing and triage notes Were old charts reviewed (outside hosp., previous admission, EMS record, old EKG, old radiological studies, urgent care reports/EKG's, fpc records)? Report findings @ -Charts reviewed showing history of fibroids. Differential Diagnosis (chest pain, altered mental status, abdominal pain women, abdominal pain men, vaginal bleeding, weakness, fever, dyspnea, syncope, headache, dizziness, GI bleed, back pain, seizure, CVA, palpatations, mental health, musculoskeletal)? @ -Differential Abdominal Pain Women: Appendicitis, Cholecystitis, diverticulosis, ischemic bowel, pancreatitis, hepat itis, UTI, gastroenteritis, AAA, incarcerated hernia, bowel obstruction, constipation, inflammatory bowel, hepatitis, peptic ulcer disease, splenic infarction, perforated viscus, vulvitis, ovarian torsion, PID, kidney stone, placenta abruption, this is not meant to be an all-inclusive list EKG interpreted by me (3pts min.). @ -As above X-rays interpreted by me (1pt min.). @ -None done CT interpreted by me (1pt min.). @ -CT of the abdomen/pelvis with contrast showed complex ovarian cysts that may possibly hemorrhagic in nature or endometriomas U/S interpreted by me (1pt. min.). @ -Ultrasound showed complexes that may reflect a hemorrhagic cyst versus endometriomas. Small amount of free fluid seen. No evidence of torsion. What testing was considered but not performed or refused? (CT, X-rays, U/S, labs)? Why? @ -None What meds were considered but not given or refused? Why? @ -None Did you discuss the management of the patient with other professionals (professionals i.e. , PA, FIELD MACHINIST, lab, RT, psych nurse, social media intern, senior commissary agent, teacher, commissioned police officer, case resolution specialist)? Give summary @ -No Was smoking cessation discussed for >3mins.? @ -No Was critical care preformed (if so, how long)? @ -No Were there social determinants of health that impacted care today? How? (Homelessness, low income, unemployed, alcoholism, drug addiction, transportation, low edu. Level, literacy, decrease access to med. care, snf, rehab)? @ -No Was there de-escalation of care discussed even if they declined (Discuss DNR or withdrawal of care, Hospice)? DNR status @ -No What co-morbidities impacted this encounter? (DM, HTN, Smoking, COPD, CAD, Cancer, CVA, ARF, Chemo, Hep., AIDS, mental health diagnosis, sleep apnea, morbid obesity)? @ -Hypertension Was patient admitted / discharged? Hospital course, mention meds given and route , prescriptions, significant lab abnormalities, going to OR and other pertinent info. @ -Discharged. Patient had pain controlled with morphine, Dilaudid, and Toradol. Patient had nausea controlled with Zofran. Urgent studies as above. Laboratory studies unremarkable. She discharged home with prescription for [place] and Zofran. Discussed return precautions with patient who verbalized agreement. Undiagnosed new problem with uncertain prognosis? @ -No Drug Therapy requiring intensive monitoring for toxicity (Heparin, Nitro, Insulin, Cardizem)? @ -No Were any procedures done? @ -No Diagnosis/symptom? @ -Ovarian cyst Acute, or Chronic, or Acute on Chronic? @ -Acute on chronic Uncomplicated (without systemic symptoms) or Complicated (systemic symptoms)? @ -Uncomplicated Side effects of treatment? @ -No Exacerbation, Progression, or Severe Exacerbation? @ -No Poses a threat to life or bodily function? How? (Chest pain, [place], [place], pneumonia, PE, COPD, DKA, ARF, appy, cholecystitis, CVA, Diverticulitis, Homicidal, Suicidal, threat to staff... and all critical care pts) @ -No - Lab Data Result diagrams: 07/31/22 11:25 07/31/22 11:25 Lab Results 07/31/22 07/31/22 07/31/22 Range/Units 11:25 11:25 11:25 WBC 5.9 (3.8-10.6) k/uL RBC 3.96 (3.80-5.40) m/uL Hgb 11.9 (11.4-16.0) gm/dL Hct 35.7 (34.0-46.0) % MCV 90.1 (80.0-100.0) fL MCH 30.0 (25.0-35.0) pg MCHC 33.3 (31.0-37.0) g/dL RDW 13.5 (11.5-15.5) % Plt Count 325 (150-450) k/uL MPV 8.3 Neutrophils % 59 % Lymphocytes % 28 % Monocytes % 6 % Eosinophils % 3 % Basophils % 0 % Neutrophils # 3.5 (1.3-7.7) k/uL Lymphocytes # 1.7 (1.0-4.8) k/uL Monocytes # 0.4 (0-1.0) k/uL Eosinophils # 0.2 (0-0.7) k/uL Basophils # 0.0 (0-0.2) k/uL Sodium (137-145) mmol/L Potassium (3.5-5.1) mmol/L Chloride (98-107) mmol/L Carbon Dioxide (22-30) mmol/L Anion Gap mmol/L BUN (7-17) mg/dL Creatinine (0.52-1.04) mg/dL Est GFR (CKD-EPI)AfAm (>60 ml/min/1.73 sqM) Est GFR (CKD-EPI)NonAf (>60 ml/min/1.73 sqM) Glucose (74-99) mg/dL Calcium (8.4-10.2) mg/dL Total Bilirubin (0.2-1.3) mg/dL AST (14-36) U/L ALT (4-34) U/L Alkaline Phosphatase (38-126) U/L Total Protein (6.3-8.2) g/dL Albumin (3.5-5.0) g/dL Amylase (30-110) U/L Lipase (23-300) U/L Urine Color Yellow Urine Appearance Clear (Clear) Urine pH 6.0 (5.0-8.0) Ur Specific [place] 1.016 (1.001-1.035) Urine Protein Trace H (Negative) Urine Glucose (UA) Negative (Negative) Urine Ketones Trace H (Negative) Urine Blood Negative (Negative) Urine Nitrite Negative (Negative) Urine Bilirubin Negative (Negative) Urine Urobilinogen <2.0 (<2.0) mg/dL Ur Leukocyte Esterase Negative (Negative) Urine HCG, Qual Not Detected (Not Detectd) 07/31/22 Range/Units 11:25 WBC (3.8-10.6) k/uL RBC (3.80-5.40) m/uL Hgb (11.4-16.0) gm/dL Hct (34.0-46.0) % MCV (80.0-100.0) fL MCH (25.0-35.0) pg MCHC (31.0-37.0) g/dL RDW (11.5-15.5) % Plt Count (150-450) k/uL MPV Neutrophils % % Lymphocytes % % Monocytes % % Eosinophils % % Basophils % % Neutrophils # (1.3-7.7) k/uL Lymphocytes # (1.0-4.8) k/uL Monocytes # (0-1.0) k/uL Eosinophils # (0-0.7) k/uL Basophils # (0-0.2) k/uL Sodium 135 L (137-145) mmol/L Potassium 3.6 (3.5-5.1) mmol/L Chloride 102 (98-107) mmol/L Carbon Dioxide 26 (22-30) mmol/L Anion Gap 7 mmol/L BUN 10 (7-17) mg/dL Creatinine 0.80 (0.52-1.04) mg/dL Est GFR (CKD-EPI)AfAm >90 (>60 ml/min/1.73 sqM) Est GFR (CKD-EPI)NonAf >90 (>60 ml/min/1.73 sqM) Glucose 113 H (74-99) mg/dL Calcium 9.4 (8.4-10.2) mg/dL Total Bilirubin 0.5 (0.2-1.3) mg/dL AST 32 (14-36) U/L ALT 30 (4-34) U/L Alkaline Phosphatase 66 (38-126) U/L Total Protein 7.3 (6.3-8.2) g/dL Albumin 4.1 (3.5-5.0) g/dL Amylase 54 (30-110) U/L Lipase 38 (23-300) U/L Urine Color Urine Appearance (Clear) Urine pH (5.0-8.0) Ur Specific [place] (1.001-1.035) Urine Protein (Negative) Urine Glucose (UA) (Negative) Urine Ketones (Negative) Urine Blood (Negative) Urine Nitrite (Negative) Urine Bilirubin (Negative) Urine Urobilinogen (<2.0) mg/dL Ur Leukocyte Esterase (Negative) Urine HCG, Qual (Not Detectd) - EKG Data EKG Comments: EKG shows a sinus bradycardia at [address] and T-wave changes. RI 172, QRS 120, QT/QTc 445/424. Disposition Clinical Impression: Ovarian cyst Disposition: HOME SELF-CARE Condition: Good Instructions (If sedation given, give patient instructions): Ruptured Ovarian Cyst (ED) Additional Instructions: Please return to the Emergency Department if symptoms worsen or any other concerns. Prescriptions: HYDROcodone/APAP 10-325MG [[place] 10-325] 1 tab PO Q4HR PRN 3 Days #18 tab PRN Reason: Pain Ondansetron [Zofran] 4 mg PO Q8HR PRN #12 tab PRN Reason: Nausea Is patient prescribed a controlled substance at d/c from ED?: Yes When asked, does pt state using other controlled substances?: Yes If prescribed controlled substance>3 days was MAPS reviewed?: Prescribed <3 Days If opioid is for acute pain is fill amount 7 days or less?: Yes If Rx opioid, was Start Talking consent form obtained?: Yes Referrals: Martha Corbin MD [Primary Care Provider] - 1-2 days Time of Disposition: 15:00
[2022-07-31] MEDS ORDERED: MORPHINE SULFATE 4 MG/ML SYRINGE IVP STA (13:03)
[2022-07-31] MEDS ORDERED: SODIUM CHLORIDE 0.9% 1,000 ML IV STA (13:03)
--- NOTE | 2022-07-31 13:36 | CT ---
EXAMINATION TYPE: CT abdomen pelvis w con DATE OF EXAM: 07/31/2022 COMPARISON: None HISTORY: Abdominal pain, LLQ pain hx fibroids ovarian cysts PA ok with no oral contrast CT DLP: 1778.4 mGycm CONTRAST: CT scan of the abdomen and pelvis is performed without Oral Contrast and with IV Contrast, patient in jected with 100 mL of Isovue 300. FINDINGS: LUNG BASES-: No visible nodule. No infiltrate. Focal eventration left hemidiaphragm. LIVER/GB: No calcified gallstones. No space occupying hepatic lesion. Biliary tree is of normal ca liber. PANCREAS: No inflammation. No distinct mass. SPLEEN: No splenic enlargement. No lesion seen. ADRENALS: No nodule. No thickening. KIDNEYS/BLADDER: No hydronephrosis. No nephrolithiasis. No distinct renal mass. Urinary bladder g rossly unremarkable. BOWEL: Normal appendix. Normal bowel caliber. No inflammation. GENITAL ORGANS: Complex ovarian cysts are seen bilaterally measuring up to 4.4 cm on the right and 3. 6 cm on the left. Smaller adjacent cysts are noted. No discrete abnormality of the uterus. Surgical c lips are seen posteriorly to the right of midline. LYMPH NODES: No greater than 1cm abdominal or pelvic lymph nodes are appreciated. AORTA: No significant abnormality. OSSEOUS STRUCTURES: No significant abnormality is seen. OTHER: No significant additional abnormality is seen. IMPRESSION: 1. Complex ovarian cysts could reflect hemorrhagic cysts or endometriomas. Consider ultrasound correl ation.
[2022-07-31 14:27] VITALS: PULSE 60
--- NOTE | 2022-07-31 14:56 | US ---
EXAMINATION TYPE: US transvaginal DATE OF EXAM: 07/31/2022 COMPARISON: CT . CLINICAL INDICATION: Female, 36 years old with history of ovarian cysts; TECHNIQUE: Transvaginal (TV). Date of LMP: 07/02/2022 EXAM MEASUREMENTS: Uterus: 10.7 X 4.8 X 5.8 cm Endometrial Stripe: 1.2 cm Right Ovary: 4.8 x 3.1 x 4.6 cm Left Ovary: 4.6 x 2.8 x 1.6 cm 1. Uterus: Anteverted wnl 2. Endometrium: wnl 3. Right Ovary: 3.8 x 2.4 x 3.3 cm complex lesion with low level internal echoes. 4. Left Ovary: 3.7 x 2.9 x 3.5 cm lesion with low level echoes. Spectral, color and waveform doppler imaging shows good arterial and venous flow within the ovaries ; there is no evidence for ovarian torsion. 5. Bilateral Adnexa: free fluid around both ovaries 6. Posterior cul-de-sac: wnl IMPRESSION: Complex ovarian cysts may reflect hemorrhagic cysts versus endometriomas. Small amount of free fluid seen. No evidence for torsion at this time.
[2022-07-31] MEDS ORDERED: HYDROmorphone 1 MG/ML 1 ML SYRINGE IVP STA (15:17)
[2022-07-31 15:54] VITALS: BP 152/102
== END 2022-07-31 16:01 | disposition home or self-care (01) ==
LOC: EC 10:26
DX: N83.202 Unspecified ovarian cyst, left side (principal); I10 Essential (primary) hypertension; J45.909 Unspecified asthma, uncomplicated; F41.9 Anxiety disorder, unspecified; F32.A Depression, unspecified; Z79.899 Other long term (current) drug therapy
CPT/HCPCS: 36415; 93005; 80053; 82150; 83690; 85025; 81003; 81025; 76830; 74177; 99284; 96374; 96375 ×3; 96361 ×3; J2270; J2405; J1170; J1885; Q9967; 93975

== ENCOUNTER 2022-09-04 10:43 | Emergency (ER) | payer OTHER ==
[2022-09-04 10:51] VITALS: RESP 18
--- NOTE | 2022-09-04 11:51 | XR ---
EXAMINATION TYPE: XR chest 2V DATE OF EXAM: 09/04/2022 11:24 AM COMPARISON: Chest radiographs from 12/09/2020 TECHNIQUE: XR chest 2V Frontal and lateral views of the chest. CLINICAL INDICATION:Female, 37 years old with history of sob; FINDINGS: Lungs/Pleura: There is no evidence of pleural effusion, focal consolidation, or pneumothorax. Pulmonary vascularity: Unremarkable. Heart/mediastinum: Cardiomediastinal silhouette is unremarkable. Musculoskeletal: No acute osseous pathology. IMPRESSION: No acute cardiopulmonary disease/process.
--- NOTE | 2022-09-04 12:07 | ED ---
URI HPI - General Chief Complaint: Upper Respiratory Infection Stated Complaint: ANTONIO Time Seen by Provider: 09/04/22 10:53 Source: patient, RN notes reviewed Mode of arrival: ambulatory Limitations: no limitations - History of Present Illness Initial Comments: 37-year-old female presents emergency Department chief complaint shortness breath and rash. Patient states that she's not a lot of last several days. Patient states that she has a productive cough. Patient also has a rash is very itchy states the bumps all over. She is unsure why she has this rash patient admits to fevers and chills. Patient did have some nausea and one episode of vomiting. Patient does not that she went out drinking when this initially started. Patient denies any ABDOMINAL pain. - Related Data Home Medications Medication Instructions Recorded Confirmed Ibuprofen [Motrin] 800 mg PO DAILY PRN 11/12/19 07/31/22 Famotidine 20 mg PO BID 12/09/20 07/31/22 Ondansetron Odt [Zofran Odt] 4 mg PO BID PRN 12/09/20 07/31/22 ALPRAZolam [Xanax] 0.5 mg PO BID PRN 07/31/22 07/31/22 Ergocalciferol (Vitamin D2) 1,250 mcg PO PLATT 07/31/22 07/31/22 [Drisdol (50,000 Iu)] FLUoxetine HCL 40 mg PO DAILY 07/31/22 07/31/22 Metoprolol Tartrate [Lopressor] 50 mg PO BID 07/31/22 07/31/22 amLODIPine [Norvasc] 5 mg PO DAILY 07/31/22 07/31/22 Previous Rx's Medication Instructions Recorded HYDROcodone/APAP 10-325MG [Anderson 1 tab PO Q4HR PRN 3 Days #18 tab 07/31/22 10-325] Ondansetron [Zofran] 4 mg PO Q8HR PRN #12 tab 07/31/22 Budesonide/Formoterol Fumarate 2 puff INHALATION RT-BID #1 each 09/04/22 [Symbicort 160-4.5 Mcg Inhaler] hydrOXYzine HCL [Atarax] 25 mg PO TID PRN #15 tab 09/04/22 predniSONE 50 mg PO DAILY #5 tab 09/04/22 Allergies Allergy/AdvReac Type Severity Reaction Status Date / Time No Known Allergies Allergy Verified 09/04/22 10:51 Review of Systems ROS Statement: Those systems with pertinent positive or pertinent negative responses have been documented in the HPI. ROS Other: All systems not noted in ROS Statement are negative. Past Medical History Past Medical History: Asthma, Hypertension Additional Past Medical History / Comment(s): heart murmur, Covid+ November 2019 History of Any Multi-Drug Resistant Organisms: None Reported Past Surgical History: Section Past Anesthesia/Blood Transfusion Reactions: No Reported Reaction Past Psychological History: Anxiety, Depression Smoking Status: Never smoker Past Alcohol Use History: Occasional Past Drug Use History: None Reported - Past Family History Father Family Medical History: No Reported History General Exam Limitations: no limitations General appearance: alert, in no apparent distress Head exam: Present: atraumatic, normocephalic, normal inspection Eye exam: Present: normal appearance, PERRL, EOMI. Absent: scleral icterus, conjunctival injection, periorbital swelling ENT exam: Present: normal exam, normal oropharynx, mucous membranes moist Neck exam: Present: normal inspection, full ROM. Absent: tenderness, meningismus, lymphadenopathy Respiratory exam: Present: wheezes. Absent: normal lung sounds bilaterally, respiratory distress, rales, rhonchi, stridor Cardiovascular Exam: Present: regular rate, normal rhythm, normal heart sounds. Absent: systolic murmur, diastolic murmur, rubs, gallop, clicks GI/Abdominal exam: Present: soft, normal bowel sounds. Absent: distended, tenderness, guarding, rebound, rigid Skin exam: Present: rash Course Vital Signs 09/04/22 10:48 Temperature 99.1 F Pulse Rate 62 Respiratory 18 Rate Blood Pressure 149/83 O2 Sat by Pulse 98 Oximetry Medical Decision Making - Medical Decision Making Was pt. sent in by a medical professional or institution (, PA, SERVICE ORDER DISPATCHER, urgent care, hospital, or snf...) When possible be specific @ -No Did you speak to anyone other than the patient for history (EMS, parent, family, police, friend...)? What history was obtained from this source @ -No Did you review nursing and triage notes (agree or disagree)? Why? @ -I reviewed and agree with nursing and triage notes Were old charts reviewed (outside hosp., previous admission, EMS record, old EKG, old radiological studies, urgent care reports/EKG's, snf records)? Report findings @ -No old charts were reviewed Differential Diagnosis (chest pain, altered mental status, abdominal pain women, abdominal pain men, vaginal bleeding, weakness, fever, dyspnea, syncope, headache, dizziness, GI bleed, back pain, seizure, CVA, palpatations, mental health, musculoskeletal)? @ -URI,covid 19, pneumonia, viral rash EKG interpreted by me (3pts min.). @ -None X-rays interpreted by me (1pt min.). @ -Chest x-ray shows no definite infiltrate CT interpreted by me (1pt min.). @ -None done U/S interpreted by me (1pt. min.). @ -None done What testing was considered but not performed or refused? (CT, X-rays, U/S, labs)? Why? @ -None What meds were considered but not given or refused? Why? @ -None Did you discuss the management of the patient with other professionals (professionals i.e. , PA, SERVICE ORDER DISPATCHER, lab, RT, psych nurse, vp digital marketing social media and crm, drapery hand, teacher, licensed mortgage loan officer, correctional casework specialist)? Give summary @ -No Was smoking cessation discussed for >3mins.? @ -No Was critical care preformed (if so, how long)? @ -No Were there social determinants of health that impacted care today? How? (Homelessness, low income, unemployed, alcoholism, drug addiction, transportation, low edu. Level, literacy, decrease access to med. care, senior care, rehab)? @ -No Was there de-escalation of care discussed even if they declined (Discuss DNR or withdrawal of care, Hospice)? DNR status @ -No What co-morbidities impacted this encounter? (DM, HTN, Smoking, COPD, CAD, Cancer, CVA, ARF, Chemo, Hep., AIDS, mental health diagnosis, sleep apnea, morbid obesity)? @ -None Was patient admitted / discharged? Hospital course, mention meds given and route, prescriptions, significant lab abnormalities, going to OR and other pertinent info. @ -Discharge patient has has asthmatic bronchitis. Patient we given refills of her Symbicort, given steroids. I do believe this rash may be insect which is viral related. Patient was given Atarax. Undiagnosed new problem with uncertain prognosis? @ -No Drug Therapy requiring intensive monitoring for toxicity (Heparin, Nitro, Insulin, Cardizem)? @ -No Were any procedures done? @ -No Diagnosis/symptom? @ -Asthmatic bronchitis, rash Acute, or Chronic, or Acute on Chronic? @ -Acute Uncomplicated (without systemic symptoms) or Complicated (systemic symptoms)? @ -Uncomplicated Side effects of treatment? @ -No Exacerbation, Progression, or Severe Exacerbation? @ -No Poses a threat to life or bodily function? How? (Chest pain, [place], [place], pneumonia, PE, COPD, DKA, ARF, appy, cholecystitis, CVA, Diverticulitis, Homicidal, Suicidal, threat to staff... and all critical care pts) @ -No - Lab Data Lab Results 09/04/22 Range/Units 11:10 Coronavirus (PCR) Not Detected (Not Detectd) Disposition Clinical Impression: Asthmatic bronchitis, Rash Disposition: HOME SELF-CARE Condition: Stable Instructions (If sedation given, give patient instructions): Upper Respiratory Infection (ED) Additional Instructions: Please return to the Emergency Department if symptoms worsen or any other concerns. Prescriptions: hydrOXYzine HCL [Atarax] 25 mg PO TID PRN #15 tab PRN Reason: itching predniSONE 50 mg PO DAILY #5 tab Budesonide/Formoterol Fumarate [Symbicort 160-4.5 Mcg Inhaler] 2 puff INHALATION RT-BID #1 each Is patient prescribed a controlled substance at d/c from ED?: No Referrals: Martha Corbin MD [Primary Care Provider] - 1-2 days Time of Disposition: 12:07
[2022-09-04] MEDS ORDERED: ONDANSETRON ODT 4 MG TAB PO STA (12:14)
[2022-09-04] MEDS ORDERED: hydrOXYzine HCL 25 MG TAB PO STA (12:14)
[2022-09-04 12:39] VITALS: BP 139/84; PULSE 65; TEMP 98.7
== END 2022-09-04 12:38 | disposition home or self-care (01) ==
LOC: EC 10:43
DX: J45.909 Unspecified asthma, uncomplicated (principal); R21 Rash and other nonspecific skin eruption; I10 Essential (primary) hypertension; F41.9 Anxiety disorder, unspecified; F32.A Depression, unspecified; Z79.899 Other long term (current) drug therapy; Z20.822 Contact with and (suspected) exposure to COVID-19; Z86.16 Personal history of COVID-19
CPT/HCPCS: 71046; 87635; 99285

== ENCOUNTER 2022-12-06 11:25 | Emergency (ER) | payer OTHER ==
[2022-12-06 11:51] VITALS: RESP 18
[2022-12-06] MEDS ORDERED: IBUPROFEN 600 MG TAB PO STA (11:57)
--- NOTE | 2022-12-06 12:38 | ED ---
URI HPI - General Chief Complaint: Upper Respiratory Infection Stated Complaint: Weakness,ANTONIO Time Seen by Provider: 12/06/22 11:50 Source: patient, RN notes reviewed Mode of arrival: ambulatory Limitations: no limitations - History of Present Illness Initial Comments: Patient is a 37-year-old female presented to ER with chief complaint of URI. Patient states her symptoms started yesterday. 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 Patient admits to congestion, sore throat, chills, and cough. Patient states she was running a 99.9 fever last night. She has been taking [id number] Sudafed with slight relief. Patient denies chest pain, shortness of breath, abdominal pain. - Related Data Home Medications Medication Instructions Recorded Confirmed Ibuprofen [Motrin] 800 mg PO TID PRN 11/12/19 12/06/22 Famotidine 20 mg PO BID 12/09/20 12/06/22 ALPRAZolam [Xanax] 0.5 mg PO BID 07/31/22 12/06/22 FLUoxetine HCL 40 mg PO DAILY 07/31/22 12/06/22 Metoprolol Tartrate [Lopressor] 50 mg PO BID 07/31/22 12/06/22 amLODIPine [Norvasc] 5 mg PO DAILY 07/31/22 12/06/22 Albuterol Sulfate [Ventolin HFA] 2 puff INHALATION RT-Q6H PRN 12/06/22 12/06/22 Ondansetron [Zofran] 4 mg PO BID PRN 12/06/22 12/06/22 Previous Rx's Medication Instructions Recorded Budesonide/Formoterol Fumarate 2 puff INHALATION RT-BID #1 each 09/04/22 [Symbicort 160-4.5 Mcg Inhaler] Allergies Allergy/AdvReac Type Severity Reaction Status Date / Time No Known Allergies Allergy Verified 12/06/22 13:37 Review of Systems ROS Statement: Those systems with pertinent positive or pertinent negative responses have been documented in the HPI. ROS Other: All systems not noted in ROS Statement are negative. Past Medical History Past Medical History: Asthma, Hypertension Additional Past Medical History / Comment(s): heart murmur, Covid+ November 2019 History of Any Multi-Drug Resistant Organisms: None Reported Past Surgical History: Section Past Anesthesia/Blood Transfusion Reactions: No Reported Reaction Past Psychological History: Anxiety, Depression Smoking Status: Never smoker Past Alcohol Use History: Occasional Past Drug Use History: None Reported - Past Family History Father Family Medical History: No Reported History General Exam Limitations: no limitations General appearance: alert, in no apparent distress ENT exam: Present: normal exam, mucous membranes moist, TM's normal bilaterally, other (erythematous oropharynx) Neck exam: Present: normal inspection. Absent: tenderness, meningismus, lymphadenopathy Respiratory exam: Present: normal lung sounds bilaterally. Absent: respiratory distress, wheezes, rales, rhonchi, stridor Cardiovascular Exam: Present: regular rate, normal rhythm, normal heart sounds. Absent: systolic murmur, diastolic murmur, rubs, gallop, clicks GI/Abdominal exam: Present: soft, normal bowel sounds. Absent: distended, tenderness, guarding, rebound, rigid Neurological exam: Present: alert, oriented X3, CN II-XII intact Psychiatric exam: Present: normal affect, normal mood Skin exam: Present: warm, dry, intact, normal color. Absent: rash Course Vital Signs 12/06/22 12/06/22 12/06/22 11:28 11:42 13:02 Temperature 98.7 F 98.3 F Pulse Rate 60 61 Respiratory 20 18 18 Rate Blood Pressure 143/77 139/84 O2 Sat by Pulse 100 99 Oximetry Medical Decision Making - Medical Decision Making Was pt. sent in by a medical professional or institution (, PA, KST OPERATOR, urgent care, hospital, or retirement...) When possible be specific @ -No Did you speak to anyone other than the patient for history (EMS, parent, family, police, friend...)? What history was obtained from this source @ -No Did you review nursing and triage notes (agree or disagree)? Why? @ -I reviewed and agree with nursing and triage notes Were old charts reviewed (outside hosp., previous admission, EMS record, old EKG, old radiological studies, urgent care reports/EKG's, retirement records)? Report findings @ -No old charts were reviewed Differential Diagnosis (chest pain, altered mental status, abdominal pain women, abdominal pain men, vaginal bleeding, weakness, fever, dyspnea, syncope, headache, dizziness, GI bleed, back pain, seizure, CVA, palpatations, mental health, musculoskeletal)? @ -noDifferential Fever: Pneumonia, viral URI, endocarditis, myocarditis, pericarditis, otitis, sinusitis, peritonsillar Abscess, retropharyngeal Abscess, epiglottitis, peritonitis, appendicitis, Myra cystitis, diverticulitis, hepatitis, colitis, UTI, PID, TOA, pyelonephritis, prostatitis, epididymitis, meningitis, encephalitis, pulmonary embolism, CVA, thyroid storm, pancreatitis, adrenal crisis, cavernous sinus thrombosis, this is not meant to be an all-inclusive EKG interpreted by me (3pts min.). @ -None X-rays interpreted by me (1pt min.). @ -Chest x-ray significant for no acute process. Mild left suprahilar soft tissue prominence possible atrial chamber enlargement. Follow-up CT recommended. CT interpreted by me (1pt min.). @ -None done U/S interpreted by me (1pt. min.). @ -None done What testing was considered but not performed or refused? (CT, X-rays, U/S, labs)? Why? @ -None What meds were considered but not given or refused? Why? @ -None Did you discuss the management of the patient with other professionals (professionals i.e. , PA, KST OPERATOR, lab, RT, psych nurse, social media community manager, deliverer merchandise, teacher, custodial officer, family service caseworker)? Give summary @ -No Was smoking cessation discussed for >3mins.? @ -No Was critical care preformed (if so, how long)? @ -No Were there social determinants of health that impacted care today? How? (Homelessness, low income, unemployed, alcoholism, drug addiction, transportation, low edu. Level, literacy, decrease access to med. care, senior living, rehab)? @ -No Was there de-escalation of care discussed even if they declined (Discuss DNR or withdrawal of care, Hospice)? DNR status @ -No What co-morbidities impacted this encounter? (DM, HTN, Smoking, COPD, CAD, Cancer, CVA, ARF, Chemo, Hep., AIDS, mental health diagnosis, sleep apnea, morbid obesity)? @ -None Was patient admitted / discharged? Hospital course, mention meds given and route, prescriptions, significant lab abnormalities, going to OR and other pertinent info. @ -[Discharge. Patient is a 37-year-old female presented ER with chief complaint of URI. Chest x-ray significant for no acute processes. Mild left suprahilar soft tissue prominence possible atrial chamber enlargement. Radiology recommended follow-up CT chest. COVID-19, influenza, RSV, strep swabs were all negative. Patient received by mouth Motrin for symptoms in the ER. Patient will be discharged stable condition and advised to continue conservative treatment outpatient. Patient to follow-up with PCP. Undiagnosed new problem with uncertain prognosis? @ -No Drug Therapy requiring intensive monitoring for toxicity (Heparin, Nitro, Insulin, Cardizem)? @ -No Were any procedures done? @ -No Diagnosis/symptom? @ -URI Acute, or Chronic, or Acute on Chronic? @ -[Acute Uncomplicated (without systemic symptoms) or Complicated (systemic symptoms)? @ -Uncomplicated Side effects of treatment? @ -No Exacerbation, Progression, or Severe Exacerbation? @ -No Poses a threat to life or bodily function? How? (Chest pain, [place], [place], pneumonia, PE, COPD, DKA, ARF, appy, cholecystitis, CVA, Diverticulitis, Homicidal, Suicidal, threat to staff... and all critical care pts) @ -No - Lab Data Lab Results 12/06/22 12/06/22 Range/Units 12:12 12:18 Influenza Type A (PCR) Not Detected (Not Detectd) Influenza Type B (PCR) Not Detected (Not Detectd) RSV (PCR) Not Detected (Not Detectd) SARS-CoV-2 (PCR) Not Detected (Not Detectd) Group A Strep (PCR) NOT DETECTED (Not Detectd) - Radiology Data Radiology results: report reviewed, image reviewed Disposition Clinical Impression: Viral URI Disposition: HOME SELF-CARE Condition: Stable Instructions (If sedation given, give patient instructions): Upper Respiratory Infection (ED) Additional Instructions: Please return to the Emergency Department if symptoms worsen or any other concerns. Is patient prescribed a controlled substance at d/c from ED?: No Referrals: Martha Corbin MD [Primary Care Provider] - 1-2 days Time of Disposition: 14:22
--- NOTE | 2022-12-06 12:50 | XR ---
EXAMINATION TYPE: XR chest 2V DATE OF EXAM: 12/06/2022 COMPARISON: 09/04/2022 TECHNIQUE: PA and lateral views submitted. HISTORY: Cough FINDINGS: The lungs are clear and there is no pneumothorax, pleural effusion, or focal pneumonia. Heart size normal and no overt failure. Osseous structures demonstrate hypertrophic and degenerative changes of the spine. Prominence of the left atrium is stable. IMPRESSION: 1. No acute process. Mild left suprahilar soft tissue prominence could represent atrial chamber enlar gement. Consider short-term follow-up CT chest.
[2022-12-06 14:33] VITALS: BP 137/81; PULSE 64; TEMP 98.1
== END 2022-12-06 14:41 | disposition home or self-care (01) ==
LOC: EC 11:25
DX: J06.9 Acute upper respiratory infection, unspecified (principal); J45.909 Unspecified asthma, uncomplicated; I10 Essential (primary) hypertension; F41.9 Anxiety disorder, unspecified; F32.A Depression, unspecified; Z79.899 Other long term (current) drug therapy; Z20.822 Contact with and (suspected) exposure to COVID-19
CPT/HCPCS: 71046; 87636; 87651; 99285